=== PATIENT | male | born 1950 | race Caucasian/White ===

== ENCOUNTER 2019-04-15 16:24 | Inpatient (IN) | payer MEDICARE, OTHER ==
[2019-04-15 18:08] LABS: Bacteria/HPF None Seen HPF (None Seen); Bilirubin Negative (Negative); Blood, Urine Negative (Negative); Clarity Clear (Clear); Glucose, Urine (Dipstick) Normal (Negative); Leukocyte Negative Leu/uL (Negative); Mucous/LPF 2+ LPF (<2+); Nitrite Negative (Negative); Protein, Urine (Dipstick) 50 mg/dL (Neg-Trace); Squamous Epithelial 0-3 HPF (0-3)
[2019-04-15 18:14] LABS: Hemoglobin 11.4 g/dL (14.0-18.0); Mean Corpuscular HGB CONC 31.7 g/dL (32.0-36.0); Mean Corpuscular Hemoglobin 28.6 pg (27.0-31.0); Mean Corpuscular Volume 90.2 fL (78.0-98.0); Mean Platelet Volume 6.7 fL (7.4-10.4); Platelet Count 610 thou/uL (130-400); RBC Distribution Width 12.9 % (11.5-14.5); Red Blood Cell (RBC) Count 3.96 mill/uL (4.70-6.10); White Blood Cell (WBC) Count 23.4 thou/uL (4.8-10.8)
[2019-04-15 18:31] LABS: Band 1 % (5-11); Lymphocytes 10 % (21-51); MDiff Complete? YES; Monocytes 4 % (0-10); Neutrophil 85 % (42-75); Platelet Morphology Comment Appears Increased; Polychromasia SLIGHT = 2-3 cells (100X) (0-2/hpf)
[2019-04-15 18:35] LABS: ALT (SGPT) 8 U/L (8-55); AST (SGOT) 14 U/L (5-34); Alkaline Phosphatase 62 U/L (40-110); Anion Gap 12 mmol/L (10-20); BUN (Urea Nitrogen) 20 mg/dL (8.4-25.7); Bilirubin, Total 0.6 mg/dL (0.2-1.2); Calc. Creatinine Clearance 0 mL/min (70-130); Calcium 9.2 mg/dL (7.8-10.44); Carbon Dioxide 35 mmol/L (23-31); Chloride 92 mmol/L (98-107); Estimated GFR-MDRD Greater than 90; Globulin 3.5 g/dL (2.4-3.5); Glucose 140 mg/dL (80-115); Potassium 4.4 mmol/L (3.5-5.1); Protein, Total 6.5 g/dL (5.8-8.1); Sodium 135 mmol/L (136-145)
--- NOTE | 2019-04-15 18:44 | RAD ---
PORTABLE CHEST: History: Hypotension. History of laryngeal cancer. Comparison: None. FINDINGS: Heart size is enlarged. There are arthrosclerotic changes of the aorta. There is a left sided pleural effusion with associated parenchymal change in the left base which could represent atelectasis versu s pneumonia. The right lung is clear. Right sided Mediport catheter is present. Tracheostomy tube is in place. IMPRESSION: Opacification in the left base which appears to be related to effusion with atelectasis versus infilt rate. POS: [facility]
[2019-04-15] MEDS ORDERED: Cefepime 2 GM VIAL ONE (19:16)
[2019-04-15] MEDS ORDERED: Sodium Chloride 0.9% 1,000 ML IV SCH (22:36)
[2019-04-15] MEDS ORDERED: Senokot S 8.6-50 MG TAB PO PRN (23:35)
[2019-04-15] MEDS ORDERED: Acetaminophen 650 MG Suppository PR PRN (23:35)
[2019-04-15] MEDS ORDERED: Calcium Carbonate 500 MG ChewTAB PO PRN (23:35)
[2019-04-15] MEDS ORDERED: Acetaminophen 650 MG/20.3 ML UDCUP PER TUBE PRN (23:39)
[2019-04-15] MEDS ORDERED: Vancomycin HCl 1 GM in Premix Bag 1 BAG IVPB SCH (23:45)
--- NOTE | 2019-04-15 23:59 | HP ---
PRIMARY CARE PHYSICIAN: Eveline Oh. CHIEF CONCERN: Hypoxia with hypotension. HISTORY OF PRESENT ILLNESS: Patient is a 69-year-old male with recently diagnosed laryngeal cancer, presented to the emergency room with the above complaints. Patient currently lives at home and has home healthcare. He has a tracheostomy as well as a gastrostomy tube. He was found to have hypotension along with hypoxia, for which he was brought into the emergency room. Patient also reported increased secretion through his trach, which has become more thickened lately. He felt generally weak and fatigued. There was subjective fever as well. Patient denies any abdominal pain, nausea, vomiting, dysuria, hematuria, urgency, or altered mentation. In the emergency room, his initial vital signs showed temperature 98.9, respirations of 20, pulse rate of 97 with a blood pressure of 84/52 with O2 saturation of 96% on 4 L nasal cannula. His chest x-ray showed left basilar pneumonia. He received 750 Levaquin, 1 g vancomycin, 2 g cefepime with 2 L IV fluid and nebulizer treatment. PAST MEDICAL HISTORY: 1. Recently diagnosed laryngeal cancer. Patient had a PET scan earlier today that showed some central obstructing lesion in the left lower lung. 2. Patient also has tracheostomy and PEG tube. 3. Hypertension. 4. Chronic pain syndrome. PAST SURGICAL HISTORY: 1. Hernia surgery. 2. MediPort placement. 3. Trach. 4. G-tube placement. ALLERGIES: NO KNOWN DRUG ALLERGIES. CURRENT HOME MEDICATIONS: Patient is on fentanyl patch and Bryan. We will verify the dosages with the family. SOCIAL HISTORY: Patient is a former smoker. He currently lives at home with his daughter. He makes his own decision with the help of his family. FAMILY HISTORY: Negative for premature coronary artery disease. REVIEW OF SYSTEMS: Cannot be reliably obtained from the patient due to current clinical condition. PHYSICAL EXAMINATION: VITAL SIGNS: As discussed above. GENERAL: A 69-year-old male, in mild distress due to thickened secretion. HEENT: Head, atraumatic and normocephalic. Sclerae anicteric. No oral lesion. NECK: Supple. Tracheostomy noted. There is a neck mass noted also on the left side of the trach. LUNGS: Showed [id number] use of accessory muscle along with extensive rhonchi as well as rales at the left base. There was scattered wheezing as well. HEART: S1 and S2 present. Regular. No rubs or gallops. ABDOMEN: Soft, nontender. PEG tube noted. EXTREMITIES: No edema or calf tenderness. NEUROLOGY: Grossly nonfocal. Moves all 4 extremities. PSYCHIATRY: Alert, awake, and oriented x3. SKIN: Warm and dry. LYMPH NODES: No palpable lymph nodes in the neck. PERIPHERAL VASCULAR: Radial pulses palpable bilaterally. MUSCULOSKELETAL: No joint swelling or tenderness. LABORATORY FINDINGS: 1. CBC showed WBC 23.4 with hemoglobin 11.4, hematocrit 35.8, and platelet of 610. Chemistry showed sodium 135, potassium 4.4, chloride 92, bicarb 35, BUN 20, and creatinine 0.62. 2. LFTs in normal range with albumin 3.0. 3. Lactic acid 0.9. 4. Urinalysis showed 4 to 6 wbc, 4 to 6 rbc with hyaline casts. 5. Chest x-ray by my review as discussed above. IMPRESSION: 1. Severe sepsis secondary to healthcare-associated pneumonia, suspected gram-negative organism. 2. Suspected postobstructive pneumonia. 3. Recently diagnosed laryngeal cancer, followed by Dr. Andino. 4. Moderate protein energy malnutrition. 5. Hyponatremia. 6. Dehydration. 7. Anemia, suspected chronic. 8. Chronic pain syndrome. 9. Hypertension. PLAN: 1. Patient will be monitored on the medical floor. We will continue gentle hydration. Oncology and Pulmonary team will be consulted. We will continue vancomycin, cefepime with Levaquin. We will resume pain medications. Consult dietitian for PEG tube feeding recommendation. Nebulizer treatment. 2. Recheck labs in a.m. 3. Patient understands the above plan of care. 4. We will discuss the above plan with the family when they arrive. Job ID: [id number]
[2019-04-16] MEDS: fentaNYL 50 mcg/hour Patch TD SCH (00:25)
[2019-04-16] MEDS: D5 1/2 NS w/10 mEq KCl 1,000 ML/1,000 ML BAG IV SCH ×3 (00:33→20:31)
[2019-04-16 00:56] VITALS: BMI 25.0
[2019-04-16] MEDS: Hydrocodone-Acetamin 15 ML UDCUP PER TUBE PRN ×3 (05:19→18:18)
[2019-04-16] MEDS: Vancomycin HCl 1.25 GM in Sodium Chloride 0.9% 250 ML 250 ML IVPB SCH ×2 (05:34→18:18)
[2019-04-16 06:00] LABS: #Eosinphils 0.1 thou/uL (0.0-0.7); #Lymphocytes 2.9 thou/uL (1.20-3.40); #Monocytes 2.1 thou/uL (0.11-0.59); #Neutrophils 13.9 thou/uL (1.40-6.50); %Basophils 0.2 % (0.0-1.0); %Eosinophils 0.5 % (0.0-10.0); %Lymphocytes 15.3 % (21.0-51.0); %Monocytes 11.1 % (0.0-10.0); Hemoglobin 9.5 g/dL (14.0-18.0); Mean Corpuscular HGB CONC 30.7 g/dL (32.0-36.0); Mean Corpuscular Hemoglobin 27.8 pg (27.0-31.0); Mean Corpuscular Volume 90.5 fL (78.0-98.0); Mean Platelet Volume 6.8 fL (7.4-10.4); Platelet Count 546 thou/uL (130-400); RBC Distribution Width 12.9 % (11.5-14.5); Red Blood Cell (RBC) Count 3.42 mill/uL (4.70-6.10); White Blood Cell (WBC) Count 19.1 thou/uL (4.8-10.8)
[2019-04-16 06:23] LABS: ALT (SGPT) 8 U/L (8-55); AST (SGOT) 10 U/L (5-34); Albumin 2.5 g/dL (3.4-4.8); Alkaline Phosphatase 49 U/L (40-110); Anion Gap 7 mmol/L (10-20); BUN (Urea Nitrogen) 16 mg/dL (8.4-25.7); Bilirubin, Total 0.4 mg/dL (0.2-1.2); Calc. Creatinine Clearance 141 mL/min (70-130); Calcium 8.3 mg/dL (7.8-10.44); Carbon Dioxide 35 mmol/L (23-31); Chloride 97 mmol/L (98-107); Estimated GFR-MDRD Greater than 90; Globulin 2.9 g/dL (2.4-3.5); Glucose 101 mg/dL (80-115); Magnesium 1.9 mg/dL (1.6-2.6); Potassium 4.1 mmol/L (3.5-5.1); Protein, Total 5.4 g/dL (5.8-8.1); Sodium 135 mmol/L (136-145)
[2019-04-16] MEDS ORDERED: Cefepime 2 GM in Sodium Chloride 0.9% 100 ML IVPB SCH (08:00)
[2019-04-16] MEDS ORDERED: FLU VACC TS2019-20(65YR UP)/PF 180 MCG/0.5 ML SYRINGE IM ONE (09:00)
[2019-04-16] MEDS: Diabetic Tussin 200 MG/10 ML UDCUP PER TUBE SCH ×3 (09:18→20:33)
[2019-04-16] MEDS: Famotidine/PF 20 mg/2ml Vial SLOW IVP SCH ×2 (09:18→20:34)
[2019-04-16] MEDS: Famotidine 20 MG TAB PER TUBE SCH ×2 (09:18→20:33)
[2019-04-16] MEDS: Saccharomyces boulardii 250 MG CAP PER TUBE SCH (09:18)
--- NOTE | 2019-04-16 15:51 | PDOC.HOSPP ---
- Subjective Subjective: pt resting, he asked me to talk to his dtr over the phone and his dtr been updated. admitted for PNA. - Objective Vital Signs & Weight: Vital Signs (12 hours) Temp Pulse Resp BP Pulse Ox 04/16/19 15:00 90 20 96 04/16/19 11:01 94 20 97 04/16/19 08:00 97 04/16/19 07:39 98.3 F 79 20 108/60 97 04/16/19 07:03 82 18 92 L 04/16/19 04:16 97.5 F L 73 18 121/71 97 Weight Admit Weight 165 lb Weight 165 lb I&O: 04/15/19 04/16/19 04/17/19 06:59 06:59 06:59 Intake Total 900 Balance 900 Result Diagrams: 04/16/19 05:44 04/16/19 05:45 Hospitalist ROS - Medication Medications: Active Medications Generic Name Dose Route Start Last Admin Trade Name Freq PRN Reason Stop Dose Admin Hydrocodone Bitart/Acetaminophen 15 ml 04/15/19 23:39 04/16/19 11:20 Hydrocodone-Apap 7.5-325/15 PER TUBE 15 ml Q6H PRN Administration Severe Pain (7-10) Albuterol/Ipratropium 3 ml 04/16/19 02:30 04/16/19 15:00 Duoneb NEB 3 ml [id number] MATHEW Administration Famotidine 20 mg 04/16/19 09:00 04/16/19 09:18 Pepcid SLOW IVP Not Given Q12HR MATHEW Famotidine 20 mg 04/16/19 09:00 04/16/19 09:18 Pepcid PER TUBE 20 mg BID MATHEW Administration Fentanyl 50 mcg 04/15/19 23:59 04/16/19 00:25 Duragesic TD 50 mcg Q3D MATHEW Administration Guaifenesin 400 mg 04/16/19 09:00 04/16/19 09:18 Robitussin Sf PER TUBE 400 mg TID MATHEW Administration Potassium Chloride/Dextrose/Sod Cl 1,000 ml in 1,000 mls @ 100 mls/hr 23:45 04/16/19 12:26 D5 1/2 Ns W/10 Meq Kcl IV 1,000 mls .Q10H MATHEW Administration Vancomycin HCl 1.25 gm/ Sodium 250 mls @ 166.667 mls/hr 04/16/19 06:00 05:34 Chloride IVPB 250 mls 0600,1800 MATHEW Administration Saccharomyces Shellyi 250 mg 04/16/19 09:00 04/16/19 09:18 Florastor PER TUBE 250 mg DAILY MATHEW Administration Sodium Chloride 10 ml 04/16/19 09:00 04/16/19 09:19 Flush - Normal Saline IVF Not Given Q12HR MATHEW - Exam General Appearance: NAD, awake alert ENT: normocephalic atraumatic ENT - other findings: trach in place Neck: supple, symmetric Heart: RRR, no murmur Respiratory: CTAB, no wheezes, no tachypnea Gastrointestinal: soft, non-tender, normal bowel sounds Gastrointestinal - other findings: PEG in place Extremities: no cyanosis, no clubbing Hosp A/P - Plan old records reviewed/req HCAP sepsis 2/2 to HCAp, present on admission post obstructive PNA w.. hx of larygneal CA --vanc, vefepime and LQ - fw on the culture and vanc trough Leukocytosis -d/t above - mgmt as above prob chr meta alkalosis -- correct the lytes, as needed. Hyponatremia Anemia of chr disease/chr inflammation -stable Prot calorie malntr - moderate - nutrition consult -on TF Sarah Joshi at [phone] updated.
--- NOTE | 2019-04-16 16:03 | CON ---
DATE OF CONSULTATION: 04/16/2019 SERVICE: Pulmonary Medicine. REASON FOR CONSULTATION: Pneumonia, mediastinal lymphadenopathy, possible pulmonary mass. HISTORY OF PRESENT ILLNESS: The patient is a 69-year-old white male with past medical history significant for head and neck cancer. He is brand new to our healthcare system. Ultimately, he was going to be seeing Dr. Andino in Oncology in a couple of days. Prior to that encounter, he is supposed to have a PET scan. He started having increasing shortness of breath and hypoxemia. He was brought to the emergency department. He was given some antibiotics, nebulized medication. Overnight, he has stabilized to some degree. He indicates his breathing is much more comfortable. He denies any current fevers, chills, nausea, vomiting, or diarrhea. Otherwise, he is in his usual state of health and has no specific complaints. I was contacted because of possible pneumonia with mediastinal lymphadenopathy, abnormal PET scan, and pleural effusion. Ultimately, additional tissue samples are going to need to be obtained. 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 He underwent an elective tracheostomy because of respiratory compromise. PAST MEDICAL HISTORY: 1. Laryngeal cancer. 2. Hypertension. 3. Chronic pain syndrome. PAST SURGICAL HISTORY: 1. Tracheostomy and PEG tube placement. 2. Herniorrhaphy. 3. MediPort placement. ALLERGIES: NO KNOWN DRUG ALLERGIES. MEDICATIONS: List of his inpatient medications were reviewed. No specific updates were made at this time. FAMILY HISTORY: Noncontributory. SOCIAL HISTORY: He has a greater than [id number] history of smoking, but quit recently. He denies any alcohol or illicit drugs. He asks us to discuss his medical care with Anali, his daughter. REVIEW OF SYSTEMS: General, head, ears, eyes, nose, throat, cardiovascular, respiratory, GI, , musculoskeletal, neurologic, and skin is negative except as mentioned in the HPI. PHYSICAL EXAMINATION: VITAL SIGNS: Afebrile; pulse 90; blood pressure 108/60; respirations 20; and saturation 97%, currently on T-collar. HEENT: Normocephalic and atraumatic. Sclerae are white. Conjunctivae are pink. Oral mucosa is moist without lesions. LUNGS: Decent air entry. No prolonged expiratory phase or wheezing is appreciated. HEART: Normal rate, regular. ABDOMEN: Soft, nontender, and nondistended. Bowel sounds are positive. MUSCULOSKELETAL: No cyanosis or clubbing. No pitting in bilateral lower extremities. NEUROLOGIC: Grossly nonfocal. LABORATORY DATA: WBC 9.1, hemoglobin 9.5, and platelets 546,000. Neutrophil count is 73%. On presentation, his bands were low. Basic metabolic profile is essentially unremarkable as his liver function studies. Lactate is negative. Urinalysis is unremarkable. Blood cultures x2 are negative. IMAGING DATA: Chest x-ray demonstrates chin-opacification of much of the left lung. There is a large pleural effusion on the left. There is possibly a pneumonia present. Right lung appears to be clear. There is evidence of volume expansion with flattening of the diaphragm on the right. Tracheostomy and port catheter in good position. His PET scan demonstrates hypermetabolic mediastinal lymph node, pulmonary mass , and possible postobstructive pneumonia. There is also large pleural effusion present. ASSESSMENT: 1. Acute hypoxic respiratory failure. 2. Community-acquired pneumonia, likely postobstructive. 3. Pleural effusion. 4. Pulmonary nodule versus mass. 5. Mediastinal lymphadenopathy, PET positive in the setting of pneumonia. 6. Head and neck cancer, status post tracheostomy and percutaneous endoscopic gastrostomy tube. DISCUSSION AND PLAN: I will proceed with a thoracentesis. If this demonstrates abnormal cytology, we will likely be done. If on the other hand, it does not, will likely need to enlarge his tracheostomy, so that we can successfully get our endoscopic bronchial ultrasound, and bronchoscope into the patient so we can survey his airway. For the time being, blood thinning medications will be interrupted. Pulmonary/Critical Care will follow closely. 70 minutes have been devoted to this patient in various activities. I personally reviewed all imaging studies and laboratory data noted within this document. For fifty percent of this time, I was interacting with the patient at the bedside or coordinating care with the care team. For the remainder of the time I was immediately available to the patient in the hospital unit. Job ID: [id number] [facility]
[2019-04-16] MEDS: Piperacillin/Tazobactam 3.375 GM in Sodium Chloride 0.9% 100 ML IVPB SCH ×2 (16:08→22:34)
[2019-04-16] MEDS ORDERED: Enoxaparin Sodium 40 MG/0.4 ML SYRINGE SC SCH (21:00)
[2019-04-16] MEDS: Acetaminophen 325 MG TAB PER TUBE PRN (22:08)
--- NOTE | 2019-04-17 00:30 | CON ---
DATE OF CONSULTATION: REASON FOR CONSULTATION: Laryngeal cancer and lung mass. HISTORY OF PRESENT ILLNESS: A 69-year-old male with extensive laryngeal cancer diagnosed in January 2018, status post prolonged hospitalization for urgent tracheostomy, now status post PEG tube as well, presenting to the hospital with hypoxia and hypotension. The patient was found to have O2 sats in the 70s and home blood pressure 80 to 90 over 50 to 60 with Home Health and sent to the ER. He has had increased secretions through his trach and has been very weak and fatigued. He denies any objective fevers at home. The patient had a chest x-ray in the ER that showed a left basilar pneumonia and pleural effusion and was started on broad-spectrum antibiotics. His blood pressure improved with IV fluids and he was admitted to the general medical floor. REVIEW OF SYSTEMS: Ten-point review of systems is negative except as per HPI. PAST MEDICAL HISTORY: Laryngeal cancer, hypertension, tobacco and alcohol abuse. PAST SURGICAL HISTORY: Hernia, MediPort placement, tracheostomy and G-tube placement. ALLERGIES: NO KNOWN DRUG ALLERGIES. CURRENT MEDICATIONS: Reviewed. PHYSICAL EXAMINATION: VITAL SIGNS: Temperature 98.3, pulse 79, respirations 20, saturating 97% on 5L by trach collar, blood pressure 108/60. GENERAL APPEARANCE: The patient is propped up in bed, in no acute distress. HEENT: Normocephalic and atraumatic. NECK: Supple. Tracheostomy is noted and hooked up to oxygen with a large left-sided neck mass. LUNGS: Mild accessory muscle use with diffuse wheezing. CARDIAC: S1 and S2. Regular rhythm and rate. ABDOMEN: Soft, nontender. PEG tube is present. EXTREMITIES: No edema. NEUROLOGIC: Cranial nerves 2 through 12 are grossly intact. PSYCHIATRIC: Awake, alert, and oriented x3. LABORATORY DATA: White blood cells 23.4 on admission, currently 19.1, hemoglobin 11.4, currently 9.5, platelets 610, currently 546. Sodium 135, potassium 4.1, carbon dioxide 35, BUN 16, creatinine 0.53, albumin 2.5. IMAGING DATA: Chest x-ray shows pleural effusion and left basilar pneumonia. PET scan dated April 15, 2019 shows a markedly hypermetabolic laryngeal mass with large hypermetabolic necrotic left neck adenopathy with a hypermetabolic right lower jugular lymph node as well as the left lower lung abnormality with hypermetabolic activity and neoplasm is favored over a postobstructive infection. ASSESSMENT AND PLAN: A 69-year-old male with laryngeal cancer, status post tracheostomy and PEG tube placement, presenting to the hospital with hypoxia and hypotension. The patient found to have pneumonia and is currently on broad-spectrum antibiotics. CAT scan showed a likely large left lower lobe nodule versus mass versus pneumonia based on his history, more likely neoplasm, which may be causing postobstructive pneumonia. If he has a pleural effusion, which is positive for cancer, he will not need any further biopsies. We will plan on doing this soon and his blood thinners will be held. If this is negative, then Dr. Archer may be able to have his tracheostomy widened so he can perform an endobronchial ultrasound and examine the airways for potential tissue diagnosis. If he does end up having metastatic cancer, then we would likely perform chemotherapy as an outpatient and also need tissue to diagnose if the patient had a second primary lung cancer and not metastatic from his laryngeal cancer. We will follow along with you. Job ID: [id number]
[2019-04-17] MEDS: Hydrocodone-Acetamin 15 ML UDCUP PER TUBE PRN ×5 (03:05→17:59)
[2019-04-17] MEDS: D5 1/2 NS w/10 mEq KCl 1,000 ML/1,000 ML BAG IV SCH ×3 (03:27→21:23)
[2019-04-17] MEDS: Piperacillin/Tazobactam 3.375 GM in Sodium Chloride 0.9% 100 ML IVPB SCH ×4 (03:27→22:41)
[2019-04-17] MEDS: guaiFENesin ER 600 MG TAB PO PRN ×2 (04:38→18:00)
[2019-04-17 05:03] LABS: #Basophils 0.1 thou/uL (0.0-0.2); #Eosinphils 0.1 thou/uL (0.0-0.7); #Lymphocytes 2.5 thou/uL (1.20-3.40); #Neutrophils 13.7 thou/uL (1.40-6.50); %Basophils 0.6 % (0.0-1.0); %Eosinophils 0.4 % (0.0-10.0); %Lymphocytes 13.5 % (21.0-51.0); %Monocytes 10.7 % (0.0-10.0); %Neutrophils 74.8 % (42.0-75.0); Hemoglobin 9.4 g/dL (14.0-18.0); Mean Corpuscular HGB CONC 31.1 g/dL (32.0-36.0); Mean Corpuscular Hemoglobin 28.1 pg (27.0-31.0); Mean Corpuscular Volume 90.4 fL (78.0-98.0); Mean Platelet Volume 6.8 fL (7.4-10.4); Platelet Count 533 thou/uL (130-400); RBC Distribution Width 12.9 % (11.5-14.5); Red Blood Cell (RBC) Count 3.34 mill/uL (4.70-6.10); White Blood Cell (WBC) Count 18.3 thou/uL (4.8-10.8)
[2019-04-17 05:25] LABS: Vancomycin, Trough 12.6 ug/mL
[2019-04-17 05:26] LABS: Vancomycin, Trough 12.2 ug/mL
[2019-04-17 05:30] LABS: ALT (SGPT) Less than 7 U/L (8-55); AST (SGOT) 10 U/L (5-34); Albumin 2.4 g/dL (3.4-4.8); Alkaline Phosphatase 47 U/L (40-110); Anion Gap 9 mmol/L (10-20); BUN (Urea Nitrogen) 14 mg/dL (8.4-25.7); Bilirubin, Total 0.5 mg/dL (0.2-1.2); Calc. Creatinine Clearance 131 mL/min (70-130); Calcium 8.1 mg/dL (7.8-10.44); Carbon Dioxide 31 mmol/L (23-31); Chloride 97 mmol/L (98-107); Estimated GFR-MDRD Greater than 90; Globulin 2.9 g/dL (2.4-3.5); Glucose 120 mg/dL (80-115); Potassium 3.7 mmol/L (3.5-5.1); Protein, Total 5.3 g/dL (5.8-8.1); Sodium 133 mmol/L (136-145)
[2019-04-17] MEDS: Vancomycin HCl 1 GM in Premix Bag 1 BAG IVPB SCH ×3 (06:07→21:22)
[2019-04-17 08:31] LABS: INR-International Normal Ratio 1.1; Prothrombin Time 14.7 SEC (12.0-14.7)
[2019-04-17 08:32] LABS: PTT 34.6 SEC (22.9-36.1)
[2019-04-17] MEDS: Acetaminophen 325 MG TAB PER TUBE PRN ×2 (08:47→17:04)
[2019-04-17] MEDS: Saccharomyces boulardii 250 MG CAP PER TUBE SCH (08:47)
[2019-04-17] MEDS: Diabetic Tussin 200 MG/10 ML UDCUP PER TUBE SCH ×3 (08:47→21:20)
[2019-04-17] MEDS: Famotidine 20 MG TAB PER TUBE SCH ×2 (08:48→21:20)
[2019-04-17] MEDS: Famotidine/PF 20 mg/2ml Vial SLOW IVP SCH ×2 (08:48→21:12)
--- NOTE | 2019-04-17 10:50 | PDOC.MOPN ---
Interval History: complains of SOB - Vital Signs Vital Signs: Vital Signs (12 hours) Temp Pulse Resp BP BP Pulse Ox 04/17/19 08:00 98.5 F 73 20 124/82 93 L 04/17/19 07:27 74 14 98 04/17/19 04:00 98.3 F 72 20 109/77 93 L 04/17/19 02:27 74 16 95 04/16/19 23:48 98.8 F 75 20 105/59 L 94 L Weight Admit Weight 165 lb Weight 165 lb - Physical Exam General: Alert, Oriented x3, No acute distress HEENT: Other (trach) Extremities: No clubbing, No cyanosis, No edema, Normal pulses, No tenderness/ swelling Skin: No rashes, No breakdown, No significant lesion - Labs Result Diagrams: 04/17/19 04:52 04/17/19 04:52 Lab results: Laboratory Results - last 24 hr 04/17/19 07:43: PT 14.7, INR 1.1, APTT 34.6 04/17/19 04:52: Vancomycin Trough 12.2 04/17/19 04:52: Vancomycin Trough 12.6 04/17/19 04:52: WBC 18.3 H, RBC 3.34 L, Hgb 9.4 L, Hct 30.2 L, MCV 90.4, MCH 28.1, MCHC 31.1 L, RDW 12.9, Plt Count 533 H, MPV 6.8 L, Neutrophils % 74.8, Lymphocytes % 13.5 L, Monocytes % 10.7 H, Eosinophils % 0.4, Basophils % 0.6, Neutrophils # 13.7 H, Lymphocytes # 2.5, Monocytes # 2.0 H, Eosinophils # 0.1, Basophils # 0.1 04/17/19 04:52: Sodium 133 L, Potassium 3.7, Chloride 97 L, Carbon Dioxide 31, Anion Gap 9 L, BUN 14, Creatinine 0.57 L, Estimated GFR (MDRD) Greater than 90 , Glucose 120 H, Calcium 8.1, Total Bilirubin 0.5, AST 10, ALT Less than 7 L, Alkaline Phosphatase 47, Serum Total Protein 5.3 L, Albumin 2.4 L, Globulin 2.9 , Albumin/Globulin Ratio 0.8 L Status: lab reviewed by me A/P - Problem (1) Head and neck cancer Current Visit: Yes Code(s): C76.0 - MALIGNANT NEOPLASM OF HEAD, FACE AND NECK Status: Acute (2) Pleural effusion Current Visit: Yes Code(s): J90 - PLEURAL EFFUSION, NOT ELSEWHERE CLASSIFIED Status: Acute - Plan Plan: thoracentesis today further recs based on cytology
[2019-04-17] MEDS ORDERED: Morphine 4 MG/ML VIAL ONE (12:12)
--- NOTE | 2019-04-17 12:23 | PDOC.HOSPP ---
- Subjective Subjective: pain on the neck, plan for thoracentesis today. - Objective Vital Signs & Weight: Vital Signs (12 hours) Temp Pulse Resp BP BP BP Pulse Ox 04/17/19 11:47 80 18 98 04/17/19 11:30 113/89 04/17/19 08:00 98.5 F 73 20 124/82 93 L 04/17/19 07:27 74 14 98 04/17/19 04:00 98.3 F 72 20 109/77 93 L 04/17/19 02:27 74 16 95 Weight Admit Weight 165 lb Weight 165 lb I&O: 04/16/19 04/17/19 04/18/19 06:59 06:59 06:59 Intake Total 900 1250 Balance 900 1250 Result Diagrams: 04/17/19 04:52 04/17/19 04:52 Hospitalist ROS - Medication Medications: Active Medications Generic Name Dose Route Start Last Admin Trade Name Freq PRN Reason Stop Dose Admin Acetaminophen 650 mg 04/15/19 23:35 04/17/19 08:47 Tylenol PER TUBE 650 mg Q4H PRN Administration Headache/Fever/Mild Pain (1-3) Albuterol/Ipratropium 3 ml 04/16/19 02:30 04/17/19 11:47 Duoneb NEB 3 ml [id number] MATHEW Administration Famotidine 20 mg 04/16/19 09:00 04/17/19 08:48 Pepcid SLOW IVP Not Given Q12HR MATHEW Famotidine 20 mg 04/16/19 09:00 04/17/19 08:48 Pepcid PER TUBE 20 mg BID MATHEW Administration Fentanyl 50 mcg 04/15/19 23:59 04/16/19 00:25 Duragesic TD 50 mcg Q3D MATHEW Administration Guaifenesin 400 mg 04/16/19 09:00 04/17/19 08:47 Robitussin Sf PER TUBE 400 mg TID MATHEW Administration Guaifenesin 600 mg 04/15/19 23:33 04/17/19 04:38 Mucinex PO 600 mg Q12HR PRN Administration Cough Potassium Chloride/Dextrose/Sod Cl 1,000 ml in 1,000 mls @ 100 mls/hr 23:45 04/17/19 03:27 D5 1/2 Ns W/10 Meq Kcl IV 1,000 mls .Q10H MATHEW Administration Piperacillin Sod/Tazobactam 100 mls @ 200 mls/hr 04/16/19 16:00 04/17/19 08: 45 Sod 3.375 gm/ Sodium Chloride IVPB 100 mls 0400,1000,1600,2200 MATHEW Administration Vancomycin HCl 1 gm/ Device 200 mls @ 200 mls/hr 04/17/19 06:00 04/17/19 06: 07 IVPB 200 mls Q8HR MATHEW Administration Saccharomyces Boulardii 250 mg 04/16/19 09:00 04/17/19 08:47 Florastor PER TUBE 250 mg DAILY MATHEW Administration Sodium Chloride 10 ml 04/16/19 09:00 04/17/19 08:48 Flush - Normal Saline IVF Not Given Q12HR MATHEW - Exam General Appearance: NAD, awake alert Eye: PERRL Neck - other findings: sig size nodule on the left sidede neck Heart: RRR, no murmur Respiratory: CTAB Gastrointestinal: soft, non-distended, normal bowel sounds Extremities: no cyanosis Skin: normal turgor Neurological: no focal deficits Musculoskeletal: normal tone Hosp A/P - Plan HCAP sepsis 2/2 to HCAp, present on admission post obstructive PNA w.. hx of larygneal CA --vanc, vefepime and LQ - fw on the culture --no growth Leukocytosis -d/t above - mgmt as above laryngeal cancer lung mass, Left nodule Pleural Fluid/effusion --plan for thoracentesis - prob chr meta alkalosis -- correct the lytes, as needed. Hyponatremia -mild Anemia of chr disease/chr inflammation -stable Pain -pt on hydrocodone q4hr and senna Prot calorie malntr - moderate - nutrition consult -on TF Dtr, Sarah at [phone] updated.
[2019-04-17] MEDS ORDERED: Morphine 2 MG/ML SYRINGE SLOW IVP SCH (12:30)
[2019-04-17] MEDS ORDERED: Sodium Bicarbonate 2.5 MEQ/5 ML VIAL ONE (15:05)
--- NOTE | 2019-04-17 16:16 | RAD ---
INSPRIATORY AND EXPIRATORY AP VIEWS OF THE CHEST: 04/17/19 INDICATION: Status post thoracentesis. COMPARISON: Chest radiograph dated 04/15/19. FINDINGS: The moderate left sided pleural effusion is not appreciably changed in size. There is a small right p leural effusion. There is scattered chronic lung changes. There is a tracheostomy tube and right ches t wall port in place. There is persistent atelectasis of the left lower lobe. Osseous structures are unchanged. IMPRESSION: 1. Status post left sided thoracentesis without evidence of pneumothorax. 2. Small right and moderate left pleural effusion. POS: [facility]
--- NOTE | 2019-04-17 16:23 | ULT ---
Ultrasound-guided left-sided diagnostic thoracentesis INDICATION: Left-sided pleural effusion with an obstructing lesion in the left lower lobe bronchus an d postobstructive atelectasis of the left lower lobe. TECHNIQUE: Informed consent was obtained. Preprocedural centimeter large left pleural effusion and a small right pleural effusion. Site overlying the posterior aspect of the lower left hemithorax was prepped and draped in the usual sterile fashion. Buffered 1% lidocaine was administered overlying sub cutaneous tissues. Under ultrasound guidance, a thoracentesis catheter was guided down into the large collection of the left chest. 60 cc of normal appearing pleural fluid was removed from the left hemithorax. Patient tolerated the procedure without difficulty. Postprocedure chest radiograph demonstrated no significant left-sided pneumothorax. Moderate left and small right pleural effusions remain. IMPRESSION: Successful ultrasound-guided diagnostic left-sided thoracentesis with removal of 60 cc of normal appearing pleural fluid. The fluid sample was sent to pathology for further evaluation.
[2019-04-17 16:57] LABS: Fluid, Triglycerides 21 mg/dL (Not Available); Pleural Fluid, Amylase Less than 30 U/L (Not Available); Pleural Fluid, Glucose 121 mg/dL; Pleural Fluid, LDH 103 U/L (Not Available); Pleural Fluid, Protein 2.8 g/dL
[2019-04-17 18:30] LABS: RBC Count-Automated (BF) 1312 /cumm; WBC/Nucleated-Auto (BF) 2166 uL
[2019-04-17 18:33] LABS: BF Color Yellow; Body Fluid Source Thoracentesis Fluid; Clarity Cloudy/Turbid (Clear); Tube # EDTA
[2019-04-17 18:36] LABS: BF Segmented Neutrophils 42 %; Cell Count Non Hematic 16 %; Lymphocytes 42 %
[2019-04-18] MEDS: Hydrocodone-Acetamin 15 ML UDCUP PER TUBE PRN ×6 (00:16→21:23)
[2019-04-18] MEDS: Piperacillin/Tazobactam 3.375 GM in Sodium Chloride 0.9% 100 ML IVPB SCH ×4 (04:15→20:21)
[2019-04-18 05:42] LABS: #Eosinphils 0.1 thou/uL (0.0-0.7); #Lymphocytes 3.3 thou/uL (1.20-3.40); #Monocytes 2.3 thou/uL (0.11-0.59); #Neutrophils 13.7 thou/uL (1.40-6.50); %Basophils 0.3 % (0.0-1.0); %Eosinophils 0.4 % (0.0-10.0); %Lymphocytes 16.8 % (21.0-51.0); %Monocytes 11.8 % (0.0-10.0); %Neutrophils 70.7 % (42.0-75.0); Mean Corpuscular HGB CONC 31.3 g/dL (32.0-36.0); Mean Corpuscular Hemoglobin 28.7 pg (27.0-31.0); Mean Corpuscular Volume 91.6 fL (78.0-98.0); Mean Platelet Volume 6.8 fL (7.4-10.4); Platelet Count 576 thou/uL (130-400); RBC Distribution Width 13.1 % (11.5-14.5); White Blood Cell (WBC) Count 19.4 thou/uL (4.8-10.8)
[2019-04-18 06:05] LABS: Vancomycin, Trough 18.7 ug/mL
[2019-04-18] MEDS: Vancomycin HCl 1 GM in Premix Bag 1 BAG IVPB SCH ×3 (06:13→20:20)
[2019-04-18] MEDS: Famotidine 20 MG TAB PER TUBE SCH ×2 (07:57→20:23)
[2019-04-18] MEDS: Saccharomyces boulardii 250 MG CAP PER TUBE SCH (07:58)
[2019-04-18] MEDS: Diabetic Tussin 200 MG/10 ML UDCUP PER TUBE SCH ×3 (07:58→20:23)
[2019-04-18] MEDS: Famotidine/PF 20 mg/2ml Vial SLOW IVP SCH ×2 (08:10→20:59)
[2019-04-18] MEDS ORDERED: Morphine 2 MG/ML SYRINGE SLOW IVP SCH (12:15)
[2019-04-18] MEDS: D5 1/2 NS w/10 mEq KCl 1,000 ML/1,000 ML BAG IV SCH (13:05)
--- NOTE | 2019-04-18 13:06 | PDOC.HOSPP ---
- Subjective Subjective: pt quite apprehensive, pain control, able to have his pO intake, had thoracentesis. - Objective Vital Signs & Weight: Vital Signs (12 hours) Temp Pulse Resp BP BP Pulse Ox 04/18/19 11:24 91 16 92 L 04/18/19 08:15 98.9 F 92 20 135/66 91 L 04/18/19 08:12 94 18 96 04/18/19 08:00 96 04/18/19 03:43 98.9 F 71 20 115/68 92 L 04/18/19 02:01 78 16 95 Weight Admit Weight 165 lb Weight 165 lb I&O: 04/17/19 04/18/19 04/19/19 06:59 06:59 06:59 Intake Total 1250 1920 Balance 1250 1920 Result Diagrams: 04/18/19 05:32 04/17/19 04:52 Hospitalist ROS - Medication Medications: Active Medications Generic Name Dose Route Start Last Admin Trade Name Freq PRN Reason Stop Dose Admin Acetaminophen 650 mg 04/15/19 23:35 04/16/19 22:08 Tylenol PER TUBE 650 mg Q4H PRN Administration Headache/Fever/Mild Pain (1-3) Hydrocodone Bitart/Acetaminophen 15 ml 04/17/19 11:44 04/18/19 08:00 Hydrocodone-Apap 7.5-325/15 PER TUBE 15 ml Q4H PRN Administration Severe Pain (7-10) Albuterol/Ipratropium 3 ml 04/16/19 02:30 04/18/19 11:24 Duoneb NEB 3 ml [id number] MATHEW Administration Famotidine 20 mg 04/16/19 09:00 04/18/19 08:10 Pepcid SLOW IVP Not Given Q12HR MATHEW Famotidine 20 mg 04/16/19 09:00 04/18/19 07:57 Pepcid PER TUBE 20 mg BID MATHEW Administration Fentanyl 50 mcg 04/15/19 23:59 04/16/19 00:25 Duragesic TD 50 mcg Q3D MATHEW Administration Guaifenesin 400 mg 04/16/19 09:00 04/18/19 07:58 Robitussin Sf PER TUBE 400 mg TID MATHEW Administration Guaifenesin 600 mg 04/15/19 23:33 04/17/19 18:00 Mucinex PO 600 mg Q12HR PRN Administration Cough Potassium Chloride/Dextrose/Sod Cl 1,000 ml in 1,000 mls @ 100 mls/hr 23:45 04/17/19 21:23 D5 1/2 Ns W/10 Meq Kcl IV 1,000 mls .Q10H MATHEW Administration Piperacillin Sod/Tazobactam 100 mls @ 200 mls/hr 04/16/19 16:00 04/18/19 10: 32 Sod 3.375 gm/ Sodium Chloride IVPB 100 mls 0400,1000,1600,2200 MATHEW Administration Vancomycin HCl 1 gm/ Device 200 mls @ 200 mls/hr 04/17/19 06:00 04/18/19 06: 13 IVPB 200 mls Q8HR MATHEW Administration Morphine Sulfate 2 mg 04/18/19 12:15 04/18/19 12:20 Morphine SLOW IVP 04/18/19 14:00 2 mg NOW MATHEW Administration Saccharomyces Boulardii 250 mg 04/16/19 09:00 04/18/19 07:58 Florastor PER TUBE 250 mg DAILY MATHEW Administration Sodium Chloride 10 ml 04/16/19 09:00 04/18/19 08:10 Flush - Normal Saline IVF Not Given Q12HR MATHEW - Exam General Appearance: NAD, awake alert Eye: anicteric sclera ENT: normocephalic atraumatic Neck: symmetric Neck - other findings: neck mass Heart: RRR Respiratory: CTAB Gastrointestinal: soft, normal bowel sounds Extremities: no cyanosis Hosp A/P - Plan HCAP sepsis 2/2 to HCAp, present on admission post obstructive PNA w.. hx of larygneal CA --vanc, zosyn and LQ - fw on the culture --no growth so far Leukocytosis -d/t above - mgmt as above -once fluid study reviewed, and wbcs trending down, then we can de-escalate the abx. laryngeal cancer lung mass, Left nodule Pleural Fluid/effusion --plan for thoracentesis - -fluid study pending. prob chr meta alkalosis -- correct the lytes, as needed. Hyponatremia -mild Anemia of chr disease/chr inflammation -stable Pain -pt on hydrocodone q4hr and senna -morphine for breakthrough pain Prot calorie malntr - moderate - nutrition consult -on TF Dtr, Sarah at [phone] updated.
--- NOTE | 2019-04-18 16:57 | PRG ---
DATE OF SERVICE: 04/18/2019 SERVICE: Pulmonary Medicine. INTERVAL HISTORY: The patient is doing okay from respiratory standpoint. His work of breathing is increasing ever so slightly. Denies any current fevers, chills, nausea, or vomiting. We are waiting on the pathology to return. Otherwise, there has been no interval change to his condition. PHYSICAL EXAMINATION: VITAL SIGNS: Afebrile, pulse 67, blood pressure 114/68, respirations 18, and saturation 94% on room air. GENERAL: The patient is awake and alert, in no apparent distress. LUNGS: Decent air entry. Dependent crackles are present. HEART: Normal rate and regular. ABDOMEN: Soft, nontender, and nondistended. Bowel sounds are positive. MUSCULOSKELETAL: No cyanosis or clubbing. There is trace pitting in the bilateral lower extremities. NEUROLOGIC: Grossly nonfocal. LABORATORY DATA: WBC 19.4, hemoglobin 3.5, platelets 576,000. Sodium 135. Basic metabolic profile is otherwise unremarkable. Liver function studies are negative. Urinalysis is unremarkable. Pleural fluid has an LDH of 103, glucose 121, amylase less than 30, total protein 2.8, triglycerides 21. Cell type is predominantly neutrophils and lymphocytes. Cultures include blood cultures x2 are negative, and body fluid cultures negative to date. Pathology is currently pending. IMAGING: Chest x-ray demonstrates small decrease in the left-sided pleural effusion. There is a small right-sided pleural effusion. Tracheostomy and port catheter are in good position. ASSESSMENT: 1. Acute hypoxic respiratory failure. 2. Community-acquired pneumonia, postobstructive. 3. Pleural effusion, not otherwise specified. 4. Pulmonary nodule versus mass. 5. Mediastinal lymphadenopathy, PET positive in the setting of pneumonia. 6. Head and neck cancer, status post tracheostomy and percutaneous endoscopic gastrostomy tube placement. DISCUSSION AND PLAN: I will discontinue the patient's IV fluids and give him a couple of doses of Lasix. First now and second tomorrow morning. We are awaiting the results of the pathology. If these are negative, we will proceed with dilating his tracheostomy, and bronchoscopy. Pulmonary/Critical Care will follow. Job ID: [id number]
[2019-04-18] MEDS ORDERED: Furosemide 40 MG/4 ML VIAL SLOW IVP SCH (17:00)
[2019-04-18] MEDS: fentaNYL 50 mcg/hour Patch TD SCH (23:54)
[2019-04-19] MEDS: Hydrocodone-Acetamin 15 ML UDCUP PER TUBE PRN ×6 (01:24→21:51)
[2019-04-19 05:15] LABS: #Basophils 0.1 thou/uL (0.0-0.2); #Eosinphils 0.1 thou/uL (0.0-0.7); #Lymphocytes 3.6 thou/uL (1.20-3.40); #Neutrophils 13.4 thou/uL (1.40-6.50); %Basophils 0.6 % (0.0-1.0); %Eosinophils 0.6 % (0.0-10.0); %Lymphocytes 18.5 % (21.0-51.0); %Monocytes 10.6 % (0.0-10.0); %Neutrophils 69.7 % (42.0-75.0); Hemoglobin 10.6 g/dL (14.0-18.0); Mean Corpuscular HGB CONC 31.7 g/dL (32.0-36.0); Mean Corpuscular Hemoglobin 28.5 pg (27.0-31.0); Mean Corpuscular Volume 90.1 fL (78.0-98.0); Mean Platelet Volume 6.9 fL (7.4-10.4); Platelet Count 601 thou/uL (130-400); Red Blood Cell (RBC) Count 3.71 mill/uL (4.70-6.10); White Blood Cell (WBC) Count 19.2 thou/uL (4.8-10.8)
[2019-04-19 05:38] LABS: Vancomycin, Trough 29.6 ug/mL
[2019-04-19] MEDS: Piperacillin/Tazobactam 3.375 GM in Sodium Chloride 0.9% 100 ML IVPB SCH ×4 (05:38→22:30)
[2019-04-19] MEDS: Vancomycin HCl 1 GM in Premix Bag 1 BAG IVPB SCH (06:10)
[2019-04-19] MEDS ORDERED: hydrALAZINE 20 MG/ML VIAL SLOW IVP PRN (09:07)
[2019-04-19] MEDS ORDERED: Ondansetron PF 4 MG/2 ML Vial IVP PRN (09:07)
[2019-04-19] MEDS ORDERED: Loperamide HCl 2 MG CAP PER TUBE PRN (09:07)
[2019-04-19] MEDS ORDERED: Acetaminophen 500 MG TAB PER TUBE PRN (09:07)
[2019-04-19] MEDS ORDERED: Metoclopramide HCl 10 MG/2 ML VIAL IVP PRN (09:07)
[2019-04-19] MEDS ORDERED: Sodium Chloride 0.65% Nasal 44 ML BOT EA NARE PRN (09:07)
[2019-04-19] MEDS ORDERED: Cepastat Lozenges 1 LOZ PO PRN (09:07)
[2019-04-19] MEDS ORDERED: Bisacodyl 10 MG SUPP PR PRN (09:07)
[2019-04-19] MEDS ORDERED: Artificial Tears 18 DROP/0.9 ML EA EYE PRN (09:07)
[2019-04-19] MEDS ORDERED: Senokot S 8.6-50 MG TAB PER TUBE PRN (09:08)
[2019-04-19] MEDS ORDERED: Artificial Tear Sol 15 ML BOT EA EYE PRN (09:16)
[2019-04-19] MEDS: Famotidine/PF 20 mg/2ml Vial SLOW IVP SCH ×2 (09:30→21:51)
[2019-04-19] MEDS: Diabetic Tussin 200 MG/10 ML UDCUP PER TUBE SCH ×3 (09:30→21:49)
[2019-04-19] MEDS: Famotidine 20 MG TAB PER TUBE SCH ×2 (09:30→21:50)
[2019-04-19] MEDS: Saccharomyces boulardii 250 MG CAP PER TUBE SCH (09:31)
[2019-04-19 09:51] LABS: Anion Gap 12 mmol/L (10-20); BUN (Urea Nitrogen) 10 mg/dL (8.4-25.7); Calc. Creatinine Clearance 119 mL/min (70-130); Calcium 8.7 mg/dL (7.8-10.44); Carbon Dioxide 30 mmol/L (23-31); Chloride 98 mmol/L (98-107); Estimated GFR-MDRD Greater than 90; Glucose 124 mg/dL (80-115); Potassium 3.9 mmol/L (3.5-5.1); Sodium 136 mmol/L (136-145)
[2019-04-19] MEDS: Furosemide 40 MG/4 ML VIAL SLOW IVP SCH (10:03)
--- NOTE | 2019-04-19 13:15 | PDOC.HOSPP ---
- Subjective Encounter Date: 04/19/19 Encounter Time: 10:00 Subjective: Patient seen and examined. No new complaints. No overnight events - Objective Vital Signs & Weight: Vital Signs (12 hours) Temp Pulse Resp BP Pulse Ox 04/19/19 10:47 80 16 04/19/19 08:05 95 04/19/19 08:03 81 16 95 04/19/19 08:00 98.6 F 77 18 117/69 94 L 04/19/19 04:00 98.6 F 81 18 107/62 95 Weight Admit Weight 165 lb Weight 165 lb I&O: 04/18/19 04/19/19 04/20/19 06:59 06:59 06:59 Intake Total 3000 360 Balance 3000 360 Result Diagrams: 04/19/19 05:03 04/19/19 09:19 Radiology Reviewed by me: Yes Hospitalist ROS - Review of Systems ENT: denies: ear pain, ear discharge, nose pain, nose discharge, nose congestion , mouth pain, mouth swelling, throat pain, throat swelling, other Respiratory: denies: cough, dry, shortness of breath, hemoptysis, SOB with excertion, pleuritic pain, sputum, wheezing, other Cardiovascular: denies: chest pain, palpitations, orthopnea, paroxysmal noc. dyspnea, edema, light headedness, other Gastrointestinal: denies: nausea, vomiting, abdominal pain, diarrhea, constipation, melena, hematochezia, other Genitourinary: denies: dysuria, frequency, incontinence, hematuria, retention, other Musculoskeletal: denies: neck pain, shoulder pain, arm pain, back pain, hand pain, leg pain, foot pain, other - Medication Medications: Active Medications Generic Name Dose Route Start Last Admin Trade Name Freq PRN Reason Stop Dose Admin Hydrocodone Bitart/Acetaminophen 15 ml 04/17/19 11:44 04/19/19 09:29 Hydrocodone-Apap 7.5-325/15 PER TUBE 15 ml Q4H PRN Administration Severe Pain (7-10) Albuterol/Ipratropium 3 ml 04/16/19 02:30 04/19/19 10:47 Duoneb NEB 3 ml [id number] MATHEW Administration Famotidine 20 mg 04/16/19 09:00 04/19/19 09:30 Pepcid SLOW IVP Not Given Q12HR MATHEW Famotidine 20 mg 04/16/19 09:00 04/19/19 09:30 Pepcid PER TUBE 20 mg BID MATHEW Administration Fentanyl 50 mcg 04/15/19 23:59 04/18/19 23:54 Duragesic TD 50 mcg Q3D MATHEW Administration Furosemide 40 mg 04/19/19 09:00 04/19/19 10:03 Lasix SLOW IVP 04/20/19 09:01 40 mg DAILY MATHEW Administration Guaifenesin 400 mg 04/16/19 09:00 04/19/19 09:30 Robitussin Sf PER TUBE 400 mg TID MATHEW Administration Piperacillin Sod/Tazobactam 100 mls @ 200 mls/hr 04/16/19 16:00 04/19/19 09: 31 Sod 3.375 gm/ Sodium Chloride IVPB 100 mls 0400,1000,1600,2200 MATHEW Administration Saccharomyces Boulardii 250 mg 04/16/19 09:00 04/19/19 09:31 Florastor PER TUBE 250 mg DAILY MATHEW Administration Sodium Chloride 10 ml 04/16/19 09:00 04/19/19 09:31 Flush - Normal Saline IVF 10 ml Q12HR MATHEW Administration - Exam General Appearance: NAD, ill appearing Eye: PERRL, anicteric sclera ENT: normocephalic atraumatic, no oropharyngeal lesions Neck - other findings: mass in neck, trach+ Heart: RRR, no murmur, no gallops, no rubs Respiratory: CTAB, no wheezes, no rales, no ronchi Gastrointestinal: soft, non-tender, non-distended, normal bowel sounds Gastrointestinal - other findings: PEG+ Extremities: no cyanosis, no clubbing, no edema Skin: normal turgor, no lesions Neurological: no focal deficits Musculoskeletal: normal tone, normal strength Psychiatric: normal affect, normal behavior Hosp A/P (1) Pneumonia Code(s): J18.9 - PNEUMONIA, UNSPECIFIED ORGANISM Status: Acute Qualifiers: Pneumonia type: due to unspecified organism Laterality: left Lung location: lower lobe of lung Qualified Code(s): J18.9 - Pneumonia, unspecified organism (2) Pleural effusion, left Code(s): J90 - PLEURAL EFFUSION, NOT ELSEWHERE CLASSIFIED Status: Acute (3) Pulmonary nodule Code(s): R91.1 - SOLITARY PULMONARY NODULE Status: Acute (4) Tracheostomy in place Code(s): Z93.0 - TRACHEOSTOMY STATUS Status: Chronic (5) PEG (percutaneous endoscopic gastrostomy) status Code(s): Z93.1 - GASTROSTOMY STATUS Status: Chronic (6) Head and neck cancer Code(s): C76.0 - MALIGNANT NEOPLASM OF HEAD, FACE AND NECK Status: Chronic (7) Anemia of chronic disease Code(s): D63.8 - ANEMIA IN OTHER CHRONIC DISEASES CLASSIFIED ELSEWHERE Status : Chronic - Plan old records reviewed/req, continue antibiotics 04/19/19 continue current treatment plan with IV antibiotics for now await pathology report from pleural fluid and based on that will decide next step medication reviewed and continue to provide symptomatic treatment and supportive care so far all culture negative repeat labs tomorrow
--- NOTE | 2019-04-19 15:24 | PRG ---
DATE OF SERVICE: 04/19/2019 SERVICE: Pulmonary Medicine. INTERVAL HISTORY: The patient is doing fine from respiratory standpoint. Breathing comfortably. No complaints of chest discomfort, nausea or vomiting. There were no interval events overnight. Otherwise, he is breathing comfortably. OBJECTIVE: VITAL SIGNS: Afebrile, pulse 80, blood pressure 117/69, respirations 16, saturation 95% on 5 L via trach collar. HEENT: Normocephalic and atraumatic. Sclerae white. Conjunctivae pink. Oral mucosa is moist without lesions. LUNGS: Decent air entry with no prolonged expiratory phase or wheezing present. HEART: Normal rate, regular. ABDOMEN: Soft, nontender, nondistended. Bowel sounds are positive. MUSCULOSKELETAL: No cyanosis or clubbing. No pitting in the bilateral lower extremities. NEUROLOGIC: Grossly nonfocal. LABORATORY DATA: WBC 19.2, hemoglobin 10.9, platelets 601,000 and rebounding. INR 1.1. Basic metabolic profile is completely unremarkable with a potassium of 3.9. All culture results remain negative to date. The cytology on the pleural fluid demonstrates no evidence of malignant cells. ASSESSMENT: 1. Acute hypoxic respiratory failure. 2. Community-acquired pneumonia, postobstructive. 3. Pleural effusion, very weak exudate, pathology negative for malignancy. 4. Pulmonary nodule versus mass. 5. Mediastinal lymphadenopathy, PET positive in the setting of pneumonia. 6. Head and neck cancer, status post tracheostomy and PEG tube placement. DISCUSSION AND PLAN: Since the cytology is negative, we will ask Surgery to upgrade his tracheostomy to a device that we can fit the endoscopic bronchial ultrasound and conventional bronchoscope through. We will try to coordinate this to occur on Monday. Pulmonary will follow. Job ID: [id number]
[2019-04-20] MEDS: Hydrocodone-Acetamin 15 ML UDCUP PER TUBE PRN ×6 (02:16→22:24)
[2019-04-20] MEDS: Piperacillin/Tazobactam 3.375 GM in Sodium Chloride 0.9% 100 ML IVPB SCH ×4 (04:33→21:57)
[2019-04-20 05:44] LABS: #Basophils 0.1 thou/uL (0.0-0.2); #Eosinphils 0.1 thou/uL (0.0-0.7); #Lymphocytes 3.7 thou/uL (1.20-3.40); #Monocytes 1.8 thou/uL (0.11-0.59); #Neutrophils 14.1 thou/uL (1.40-6.50); %Basophils 0.3 % (0.0-1.0); %Eosinophils 0.6 % (0.0-10.0); %Lymphocytes 18.8 % (21.0-51.0); %Monocytes 9.3 % (0.0-10.0); %Neutrophils 71.1 % (42.0-75.0); Hemoglobin 9.6 g/dL (14.0-18.0); Mean Corpuscular HGB CONC 31.2 g/dL (32.0-36.0); Mean Corpuscular Hemoglobin 28.2 pg (27.0-31.0); Mean Corpuscular Volume 90.4 fL (78.0-98.0); Platelet Count 591 thou/uL (130-400); RBC Distribution Width 12.9 % (11.5-14.5); White Blood Cell (WBC) Count 19.8 thou/uL (4.8-10.8)
[2019-04-20] MEDS: Vancomycin HCl 1 GM in Premix Bag 1 BAG IVPB SCH ×2 (06:06→17:44)
[2019-04-20] MEDS: Famotidine 20 MG TAB PER TUBE SCH ×2 (09:19→21:56)
[2019-04-20] MEDS: Diabetic Tussin 200 MG/10 ML UDCUP PER TUBE SCH ×3 (09:20→21:56)
[2019-04-20] MEDS: Saccharomyces boulardii 250 MG CAP PER TUBE SCH (09:20)
[2019-04-20] MEDS: Famotidine/PF 20 mg/2ml Vial SLOW IVP SCH ×2 (09:20→21:56)
[2019-04-20] MEDS: Furosemide 40 MG/4 ML VIAL SLOW IVP SCH (09:20)
[2019-04-20 09:23] LABS: Anion Gap 11 mmol/L (10-20); BUN (Urea Nitrogen) 12 mg/dL (8.4-25.7); Calc. Creatinine Clearance 123 mL/min (70-130); Calcium 8.3 mg/dL (7.8-10.44); Carbon Dioxide 29 mmol/L (23-31); Chloride 100 mmol/L (98-107); Estimated GFR-MDRD Greater than 90; Glucose 160 mg/dL (80-115); Potassium 3.6 mmol/L (3.5-5.1); Sodium 136 mmol/L (136-145)
--- NOTE | 2019-04-20 11:00 | PDOC.HOSPP ---
- Subjective Encounter Date: 04/20/19 Encounter Time: 10:30 Subjective: Patient seen and examined. No new complaints. No overnight events - Objective Vital Signs & Weight: Vital Signs (12 hours) Temp Pulse Resp BP Pulse Ox 04/20/19 10:37 94 18 96 04/20/19 08:36 97.5 F L 85 20 123/66 94 L 04/20/19 08:00 94 L 04/20/19 06:48 100 20 97 04/20/19 03:46 94 L 04/20/19 00:21 92 L Weight Admit Weight 165 lb Weight 165 lb I&O: 04/19/19 04/20/19 04/21/19 06:59 06:59 06:59 Intake Total 3000 2000 Balance 3000 2000 Result Diagrams: 04/20/19 05:05 04/20/19 08:55 Hospitalist ROS - Review of Systems ENT: denies: ear pain, ear discharge, nose pain, nose discharge, nose congestion , mouth pain, mouth swelling, throat pain, throat swelling, other Respiratory: denies: cough, dry, shortness of breath, hemoptysis, SOB with excertion, pleuritic pain, sputum, wheezing, other Cardiovascular: denies: chest pain, palpitations, orthopnea, paroxysmal noc. dyspnea, edema, light headedness, other Gastrointestinal: denies: nausea, vomiting, abdominal pain, diarrhea, constipation, melena, hematochezia, other Genitourinary: denies: dysuria, frequency, incontinence, hematuria, retention, other Musculoskeletal: denies: neck pain, shoulder pain, arm pain, back pain, hand pain, leg pain, foot pain, other - Medication Medications: Active Medications Generic Name Dose Route Start Last Admin Trade Name Freq PRN Reason Stop Dose Admin Hydrocodone Bitart/Acetaminophen 15 ml 04/17/19 11:44 04/20/19 10:01 Hydrocodone-Apap 7.5-325/15 PER TUBE 15 ml Q4H PRN Administration Severe Pain (7-10) Albuterol/Ipratropium 3 ml 04/16/19 02:30 04/20/19 10:37 Duoneb NEB 3 ml [id number] MATHEW Administration Famotidine 20 mg 04/16/19 09:00 04/20/19 09:20 Pepcid SLOW IVP Not Given Q12HR MATHEW Famotidine 20 mg 04/16/19 09:00 04/20/19 09:19 Pepcid PER TUBE 20 mg BID MATHEW Administration Fentanyl 50 mcg 04/15/19 23:59 04/18/19 23:54 Duragesic TD 50 mcg Q3D MATHEW Administration Guaifenesin 400 mg 04/16/19 09:00 04/20/19 09:20 Robitussin Sf PER TUBE 400 mg TID MATHEW Administration Piperacillin Sod/Tazobactam 100 mls @ 200 mls/hr 04/16/19 16:00 04/20/19 10: 02 Sod 3.375 gm/ Sodium Chloride IVPB 100 mls 0400,1000,1600,2200 MATHEW Administration Vancomycin HCl 1 gm/ Device 200 mls @ 200 mls/hr 04/20/19 06:00 04/20/19 06: 06 IVPB 200 mls 0600,1800 MATHEW Administration Saccharomyces Boulardii 250 mg 04/16/19 09:00 04/20/19 09:20 Florastor PER TUBE 250 mg DAILY MATHEW Administration Sodium Chloride 10 ml 04/16/19 09:00 04/20/19 09:20 Flush - Normal Saline IVF 10 ml Q12HR MATHEW Administration - Exam General Appearance: NAD, awake alert Eye: PERRL, anicteric sclera Eye - other findings: neck mass ENT: normocephalic atraumatic, no oropharyngeal lesions Neck: supple, symmetric, no JVD Heart: RRR, no murmur, no gallops Respiratory: CTAB, no wheezes, no rales Gastrointestinal: soft, non-tender, non-distended Extremities: no cyanosis, no clubbing, no edema Skin: normal turgor, no lesions Neurological: no focal deficits Musculoskeletal: normal tone, normal strength Psychiatric: normal affect, normal behavior Hosp A/P (1) Pneumonia Code(s): J18.9 - PNEUMONIA, UNSPECIFIED ORGANISM Status: Acute Qualifiers: Pneumonia type: due to unspecified organism Laterality: left Lung location: lower lobe of lung Qualified Code(s): J18.9 - Pneumonia, unspecified organism (2) Pleural effusion, left Code(s): J90 - PLEURAL EFFUSION, NOT ELSEWHERE CLASSIFIED Status: Acute (3) Pulmonary nodule Code(s): R91.1 - SOLITARY PULMONARY NODULE Status: Acute (4) Tracheostomy in place Code(s): Z93.0 - TRACHEOSTOMY STATUS Status: Chronic (5) PEG (percutaneous endoscopic gastrostomy) status Code(s): Z93.1 - GASTROSTOMY STATUS Status: Chronic (6) Head and neck cancer Code(s): C76.0 - MALIGNANT NEOPLASM OF HEAD, FACE AND NECK Status: Chronic (7) Anemia of chronic disease Code(s): D63.8 - ANEMIA IN OTHER CHRONIC DISEASES CLASSIFIED ELSEWHERE Status : Chronic - Plan old records reviewed/req, continue antibiotics 04/19/19 continue current treatment plan with IV antibiotics for now await pathology report from pleural fluid and based on that will decide next step medication reviewed and continue to provide symptomatic treatment and supportive care so far all culture negative repeat labs tomorrow will need bronchoscopy on monday continue antibiotics
[2019-04-20] MEDS ORDERED: Lidocaine 1% (PF) 30 ML VIAL ONE (12:17)
[2019-04-20] MEDS ORDERED: Morphine 2 MG/ML SYRINGE SLOW IVP SCH (13:00)
--- NOTE | 2019-04-20 18:53 | CON ---
DATE OF CONSULTATION: 04/20/2019 REASON FOR CONSULTATION: Changing out trach for larger trach. CONSULTING PHYSICIAN: Dr. Tolliver. HISTORY OF PRESENT ILLNESS: Mr. 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 In order to work up the lymphadenopathy in the mediastinum, they wanted to be able to place a larger bronchoscope to guide the fine-needle aspirate of this. In order to do that, they needed a larger tracheostomy tube in place. He did have a previous #8 Shiley tracheostomy tube that was placed on February 28. He had it downsized around the first part of March to a #6 uncuffed Shiley. He has not had any trouble breathing. He has not had any problems with his tracheostomy tube. No other complaints at this time. PAST MEDICAL HISTORY AND REVIEW OF SYSTEMS: Please see his H and P for further details of his past medical history and review of systems. PHYSICAL EXAMINATION: Neck shows a very large left level 3 cervical lymph node about 8 cm in size, this is not involved with the tracheostomy. The #[address] is in place and the tracheostomy is well healed. No evidence of any problems. PROCEDURE NOTE: After getting his consent, I injected around the tracheostomy stoma with 1% lidocaine and 1:100,000 epinephrine and squirted some of the 1% lidocaine with 1:100,000 epinephrine in the trach to obtain some anesthesia in the area. After giving it several minutes to obtain some adequate anesthesia, the #6 Shiley trach was removed and a #8 cuffed Shiley trach was taken coating it with K-Y jelly. Using some pressure, I was able to dilate up the tracheostomy stoma enough to get the tracheostomy tube in place and then inflated the cuff to keep any bleeding from going down into his trachea. He was breathing easily through it and did bring up some thick mucus and no blood. The tracheostomy tie was placed around it and was tied in place. The wound was inspected and appeared to be okay. It just had a little bit of oozing around it. Trach dressing was reapplied and left the cuff up for about an hour to catch any blood, and as it continues to bleed, but should allow them to do the bronchoscopy. IMPRESSION: Squamous cell carcinoma, supraglottic metastasis to the neck, needed a larger tracheostomy tube for bronchoscopy. PLAN: The #8 Shiley trach was placed and seems to be functioning well. Keep the cuff inflated 1 hour and then should be able to take it down. He is nonverbal at this point time. Job ID: [id number]
[2019-04-21] MEDS: Hydrocodone-Acetamin 15 ML UDCUP PER TUBE PRN ×6 (02:03→21:58)
[2019-04-21] MEDS: Piperacillin/Tazobactam 3.375 GM in Sodium Chloride 0.9% 100 ML IVPB SCH ×4 (03:51→21:56)
[2019-04-21] MEDS: Vancomycin HCl 1 GM in Premix Bag 1 BAG IVPB SCH ×2 (05:59→18:06)
[2019-04-21] MEDS: Diabetic Tussin 200 MG/10 ML UDCUP PER TUBE SCH ×3 (09:31→21:56)
[2019-04-21] MEDS: Famotidine/PF 20 mg/2ml Vial SLOW IVP SCH ×2 (09:32→21:58)
[2019-04-21] MEDS: Saccharomyces boulardii 250 MG CAP PER TUBE SCH (09:32)
[2019-04-21] MEDS: Famotidine 20 MG TAB PER TUBE SCH ×2 (09:56→21:56)
[2019-04-21 11:32] LABS: Anion Gap 19 mmol/L (10-20); BUN (Urea Nitrogen) 12 mg/dL (8.4-25.7); Calc. Creatinine Clearance 123 mL/min (70-130); Calcium 8.6 mg/dL (7.8-10.44); Carbon Dioxide 19 mmol/L (23-31); Chloride 104 mmol/L (98-107); Estimated GFR-MDRD Greater than 90; Glucose 111 mg/dL (80-115); Potassium 4.8 mmol/L (3.5-5.1); Sodium 137 mmol/L (136-145)
--- NOTE | 2019-04-21 14:35 | PDOC.HOSPP ---
- Subjective Encounter Date: 04/21/19 Encounter Time: 10:30 Subjective: Patient seen and examined. No new complaints. No overnight events - Objective Vital Signs & Weight: Vital Signs (12 hours) Temp Pulse Resp BP Pulse Ox 04/21/19 13:26 92 20 04/21/19 10:36 95 20 95 04/21/19 08:55 92 L 04/21/19 08:00 99.0 F 82 18 109/62 92 L 04/21/19 06:54 93 24 H 95 04/21/19 04:10 98.3 F 93 16 134/77 95 04/21/19 03:21 96 Weight Admit Weight 165 lb Weight 165 lb I&O: 04/20/19 04/21/19 04/22/19 06:59 06:59 06:59 Intake Total 1999 1800 Balance 1999 1800 Result Diagrams: 04/20/19 05:05 04/21/19 11:00 Hospitalist ROS - Review of Systems ENT: denies: ear pain, ear discharge, nose pain, nose discharge, nose congestion , mouth pain, mouth swelling, throat pain, throat swelling, other Respiratory: denies: cough, dry, shortness of breath, hemoptysis, SOB with excertion, pleuritic pain, sputum, wheezing, other Cardiovascular: denies: chest pain, palpitations, orthopnea, paroxysmal noc. dyspnea, edema, light headedness, other Gastrointestinal: denies: nausea, vomiting, abdominal pain, diarrhea, constipation, melena, hematochezia, other Genitourinary: denies: dysuria, frequency, incontinence, hematuria, retention, other Musculoskeletal: denies: neck pain, shoulder pain, arm pain, back pain, hand pain, leg pain, foot pain, other - Medication Medications: Active Medications Generic Name Dose Route Start Last Admin Trade Name Freq PRN Reason Stop Dose Admin Hydrocodone Bitart/Acetaminophen 15 ml 04/17/19 11:44 04/21/19 14:22 Hydrocodone-Apap 7.5-325/15 PER TUBE 15 ml Q4H PRN Administration Severe Pain (7-10) Albuterol/Ipratropium 3 ml 04/16/19 02:30 04/21/19 13:26 Duoneb NEB 3 ml [id number] MATHEW Administration Famotidine 20 mg 04/16/19 09:00 04/21/19 09:32 Pepcid SLOW IVP 20 mg Q12HR MATHEW Administration Famotidine 20 mg 04/16/19 09:00 04/21/19 09:56 Pepcid PER TUBE Not Given BID MATHEW Fentanyl 50 mcg 04/15/19 23:59 04/18/19 23:54 Duragesic TD 50 mcg Q3D MATHEW Administration Guaifenesin 400 mg 04/16/19 09:00 04/21/19 14:21 Robitussin Sf PER TUBE 400 mg TID MATHEW Administration Piperacillin Sod/Tazobactam 100 mls @ 200 mls/hr 04/16/19 16:00 04/21/19 09: 33 Sod 3.375 gm/ Sodium Chloride IVPB 100 mls 0400,1000,1600,2200 MATHEW Administration Vancomycin HCl 1 gm/ Device 200 mls @ 200 mls/hr 04/20/19 06:00 04/21/19 05: 59 IVPB 200 mls 0600,1800 MATHEW Administration Saccharomyces Boulardii 250 mg 04/16/19 09:00 04/21/19 09:32 Florastor PER TUBE 250 mg DAILY MATHEW Administration Sodium Chloride 10 ml 04/16/19 09:00 04/21/19 09:33 Flush - Normal Saline IVF 10 ml Q12HR MATHEW Administration - Exam General Appearance: NAD, awake alert Eye: PERRL, anicteric sclera ENT: normocephalic atraumatic, no oropharyngeal lesions Neck: supple, symmetric, no JVD, no thyromegaly Neck - other findings: neck mass, trach+ Heart: RRR, no murmur, no gallops Respiratory: CTAB, no wheezes, no rales Gastrointestinal: soft, non-tender, non-distended, normal bowel sounds Gastrointestinal - other findings: peg + Extremities: no cyanosis, no clubbing Skin: normal turgor, no lesions Neurological: no focal deficits Musculoskeletal: normal tone, normal strength Psychiatric: normal affect, normal behavior Hosp A/P (1) Pneumonia Code(s): J18.9 - PNEUMONIA, UNSPECIFIED ORGANISM Status: Acute Qualifiers: Pneumonia type: due to unspecified organism Laterality: left Lung location: lower lobe of lung Qualified Code(s): J18.9 - Pneumonia, unspecified organism (2) Pleural effusion, left Code(s): J90 - PLEURAL EFFUSION, NOT ELSEWHERE CLASSIFIED Status: Acute (3) Pulmonary nodule Code(s): R91.1 - SOLITARY PULMONARY NODULE Status: Acute (4) Tracheostomy in place Code(s): Z93.0 - TRACHEOSTOMY STATUS Status: Chronic (5) PEG (percutaneous endoscopic gastrostomy) status Code(s): Z93.1 - GASTROSTOMY STATUS Status: Chronic (6) Head and neck cancer Code(s): C76.0 - MALIGNANT NEOPLASM OF HEAD, FACE AND NECK Status: Chronic (7) Anemia of chronic disease Code(s): D63.8 - ANEMIA IN OTHER CHRONIC DISEASES CLASSIFIED ELSEWHERE Status : Chronic - Plan old records reviewed/req, continue antibiotics 04/19/19 continue current treatment plan with IV antibiotics for now await pathology report from pleural fluid and based on that will decide next step medication reviewed and continue to provide symptomatic treatment and supportive care so far all culture negative repeat labs tomorrow will need bronchoscopy on monday continue antibiotics 04/21/19 tomorrow bronchoscopy continue current treatment plan ENT changed tracheostomy tube
[2019-04-21] MEDS ORDERED: Furosemide 20 MG/2 ML VIAL SLOW IVP SCH (17:30)
--- NOTE | 2019-04-21 17:38 | PRG ---
DATE OF SERVICE: 04/21/2019 SERVICE: Pulmonary Medicine. INTERVAL HISTORY: The patient is doing fine from respiratory standpoint. His got his tracheostomy upsized today at bedside. Otherwise, there has been no change to his condition. We are ready to move forward with his surgical procedure tomorrow. PHYSICAL EXAMINATION: VITAL SIGNS: Afebrile with a T-max of 99.0. Pulse 95, blood pressure 109/62, respirations 20, and saturation 95%, currently on T-collar. HEENT: Normocephalic and atraumatic. Sclerae white. Conjunctivae pink. Oral mucosa is moist without lesions. LUNGS: Decent air entry. No prolonged expiratory phase or wheezing is appreciated. HEART: Normal rate. Regular. ABDOMEN: Soft, nontender, and nondistended. Bowel sounds are positive. MUSCULOSKELETAL: No cyanosis or clubbing. There is 2+ pitting in the bilateral lower extremities with chronic stasis changes. LABORATORY DATA: Blood cultures x2 and body fluid culture negative to-date. ASSESSMENT: 1. Acute hypoxic respiratory failure. 2. Community-acquired pneumonia, postobstructive. 3. Pleural effusion, very weak exudate, pathology negative for malignancy. 4. Pulmonary nodule versus mass. 5. Mediastinal lymphadenopathy, PET positive in the setting of pneumonia. 6. Head and neck cancer, status post tracheostomy and percutaneous endoscopic gastrostomy tube placement. DISCUSSION AND PLAN: We will move downstairs tomorrow for his endoscopic bronchial ultrasound-guided transbronchial needle aspiration of his mediastinal lymphadenopathy. In addition to this, we will see if we can get a biopsy of the hilar mass. A dose of Lasix will be provided tomorrow morning. Pulmonary will follow. Job ID: [id number]
[2019-04-22] MEDS: fentaNYL 50 mcg/hour Patch TD SCH (00:40)
[2019-04-22] MEDS: Morphine 2 MG/ML SYRINGE SLOW IVP PRN ×2 (02:13→05:59)
[2019-04-22] MEDS: Piperacillin/Tazobactam 3.375 GM in Sodium Chloride 0.9% 100 ML IVPB SCH ×4 (04:10→22:11)
[2019-04-22 06:26] LABS: Vancomycin, Trough 16.4 ug/mL
[2019-04-22] MEDS: Vancomycin HCl 1 GM in Premix Bag 1 BAG IVPB SCH ×2 (06:28→18:21)
[2019-04-22] MEDS: Famotidine/PF 20 mg/2ml Vial SLOW IVP SCH ×2 (08:26→22:10)
[2019-04-22] MEDS: Famotidine 20 MG TAB PER TUBE SCH ×2 (08:26→22:09)
[2019-04-22] MEDS: Saccharomyces boulardii 250 MG CAP PER TUBE SCH (10:04)
[2019-04-22] MEDS: Diabetic Tussin 200 MG/10 ML UDCUP PER TUBE SCH ×3 (10:04→22:10)
--- NOTE | 2019-04-22 11:20 | PDOC.HOSPP ---
- Subjective Encounter Date: 04/22/19 Encounter Time: 09:30 non-verbal Subjective: Patient seen and examined. No new complaints. No overnight events - Objective Vital Signs & Weight: Vital Signs (12 hours) Temp Pulse Resp BP Pulse Ox 04/22/19 08:20 94 L 04/22/19 08:00 99.1 F 91 20 143/82 H 94 L 04/22/19 07:36 92 L 04/22/19 07:29 88 20 97 04/22/19 03:37 97 Weight Admit Weight 165 lb Weight 165 lb I&O: 04/21/19 04/22/19 04/23/19 06:59 06:59 06:59 Intake Total 1800 360 Balance 1800 360 Result Diagrams: 04/20/19 05:05 04/21/19 11:00 Hospitalist ROS - Review of Systems ENT: denies: ear pain, ear discharge, nose pain, nose discharge, nose congestion , mouth pain, mouth swelling, throat pain, throat swelling, other Respiratory: denies: cough, dry, shortness of breath, hemoptysis, SOB with excertion, pleuritic pain, sputum, wheezing, other Cardiovascular: denies: chest pain, palpitations, orthopnea, paroxysmal noc. dyspnea, edema, light headedness, other Gastrointestinal: denies: nausea, vomiting, abdominal pain, diarrhea, constipation, melena, hematochezia, other Genitourinary: denies: dysuria, frequency, incontinence, hematuria, retention, other - Medication Medications: Active Medications Generic Name Dose Route Start Last Admin Trade Name Freq PRN Reason Stop Dose Admin Hydrocodone Bitart/Acetaminophen 15 ml 04/17/19 11:44 04/21/19 21:58 Hydrocodone-Apap 7.5-325/15 PER TUBE 15 ml Q4H PRN Administration Severe Pain (7-10) Albuterol/Ipratropium 3 ml 04/16/19 02:30 04/22/19 10:59 Duoneb NEB Not Given [id number] MATHEW Famotidine 20 mg 04/16/19 09:00 04/22/19 08:26 Pepcid SLOW IVP 20 mg Q12HR MATHEW Administration Famotidine 20 mg 04/16/19 09:00 04/22/19 08:26 Pepcid PER TUBE Not Given BID MATHEW Fentanyl 50 mcg 04/15/19 23:59 04/22/19 00:40 Duragesic TD 50 mcg Q3D MATHEW Administration Guaifenesin 400 mg 04/16/19 09:00 04/22/19 10:04 Robitussin Sf PER TUBE Not Given TID MATHEW Piperacillin Sod/Tazobactam 100 mls @ 200 mls/hr 04/16/19 16:00 04/22/19 09: 59 Sod 3.375 gm/ Sodium Chloride IVPB 100 mls 0400,1000,1600,2200 MATHEW Administration Vancomycin HCl 1 gm/ Device 200 mls @ 200 mls/hr 04/20/19 06:00 04/22/19 06: 28 IVPB 200 mls 0600,1800 MATHEW Administration Saccharomyces Boulardii 250 mg 04/16/19 09:00 04/22/19 10:04 Florastor PER TUBE Not Given DAILY MATHEW Sodium Chloride 10 ml 04/16/19 09:00 04/22/19 08:26 Flush - Normal Saline IVF 10 ml Q12HR MATHEW Administration - Exam General Appearance: NAD, awake alert Eye: PERRL, anicteric sclera ENT: normocephalic atraumatic, no oropharyngeal lesions Neck: supple, symmetric, no JVD Neck - other findings: trach+ Heart: RRR, no murmur, no gallops Respiratory: CTAB, no wheezes, no rales Gastrointestinal: soft, non-tender, non-distended Extremities: no cyanosis, no clubbing Skin: normal turgor, no lesions Neurological: no focal deficits Musculoskeletal: normal tone, normal strength Psychiatric: normal affect, normal behavior Hosp A/P (1) Pneumonia Code(s): J18.9 - PNEUMONIA, UNSPECIFIED ORGANISM Status: Acute Qualifiers: Pneumonia type: due to unspecified organism Laterality: left Lung location: lower lobe of lung Qualified Code(s): J18.9 - Pneumonia, unspecified organism (2) Pleural effusion, left Code(s): J90 - PLEURAL EFFUSION, NOT ELSEWHERE CLASSIFIED Status: Acute (3) Pulmonary nodule Code(s): R91.1 - SOLITARY PULMONARY NODULE Status: Acute (4) Tracheostomy in place Code(s): Z93.0 - TRACHEOSTOMY STATUS Status: Chronic (5) PEG (percutaneous endoscopic gastrostomy) status Code(s): Z93.1 - GASTROSTOMY STATUS Status: Chronic (6) Head and neck cancer Code(s): C76.0 - MALIGNANT NEOPLASM OF HEAD, FACE AND NECK Status: Chronic (7) Anemia of chronic disease Code(s): D63.8 - ANEMIA IN OTHER CHRONIC DISEASES CLASSIFIED ELSEWHERE Status : Chronic - Plan old records reviewed/req, continue antibiotics 04/19/19 continue current treatment plan with IV antibiotics for now await pathology report from pleural fluid and based on that will decide next step medication reviewed and continue to provide symptomatic treatment and supportive care so far all culture negative repeat labs tomorrow will need bronchoscopy on monday continue antibiotics 04/21/19 tomorrow bronchoscopy continue current treatment plan ENT changed tracheostomy tube 04/22/19 today bronchoscopy continue current treatment plan wean off oxygen as tolerated discharge planning based on pulmonary clear
[2019-04-22] MEDS ORDERED: Lidocaine 1% PF 5 ML VIAL ONE (11:32)
[2019-04-22] MEDS ORDERED: PROPOFOL 200 MG/20 ML VIAL ONE (11:32)
[2019-04-22] MEDS ORDERED: Ondansetron PF 4 MG/2 ML Vial ONE (11:32)
[2019-04-22] MEDS ORDERED: Albuterol Sulfate HFA (OR ONLY) ONE (12:18)
--- NOTE | 2019-04-22 12:52 | PRG ---
DATE OF SERVICE: 04/22/2019 SERVICE: Pulmonary Medicine. INTERVAL HISTORY: The patient is doing really well from respiratory standpoint. He has not had any complaints of fevers, chills, cough, sputum production, nausea, or vomiting. Otherwise, he is in his usual state of health and has no specific complaints. He is looking forward to having this procedure done. PHYSICAL EXAMINATION: VITAL SIGNS: Afebrile, currently with a T-max of 99.1, pulse 91, blood pressure 143/82, respirations 20, saturations 90%, on T-collar. HEENT: Normocephalic and atraumatic. Sclerae are white. Conjunctivae are pink. Oral mucosa is moist without lesions. LUNGS: Decent air entry with no prolonged expiratory phase or wheezing present. HEART: Normal rate, regular. ABDOMEN: Soft, nontender, and nondistended. Bowel sounds are positive. MUSCULOSKELETAL: No cyanosis or clubbing. There is pitting edema of the bilateral lower extremities, it is slowly improving. : No Rolle. NEUROLOGIC: Grossly nonfocal. ASSESSMENT: 1. Acute hypoxic respiratory failure. 2. Community-acquired pneumonia, postobstructive. 3. Pleural effusion, very weak exudate, pathology negative for malignancy. 4. Pulmonary nodule versus mass. 5. Mediastinal lymphadenopathy, PET positive in the setting of pneumonia. 6. Head and neck cancer, status post tracheostomy and percutaneous endoscopy and PEG tube placement. DISCUSSION AND PLAN: We will move to the operating room. Hopefully, we will be able to successfully pull off both an endoscopic bronchial ultrasound-guided biopsy of the mediastinal lymph node and also a biopsy of this possible pulmonary mass. Pulmonary will continue to follow. As time goes on, we will continue to diurese the patient. Shira will be resumed tomorrow morning. Job ID: [id number]
[2019-04-22] MEDS: Furosemide 40 MG/4 ML VIAL SLOW IVP SCH (14:00)
[2019-04-22] MEDS ORDERED: Morphine 4 MG/ML VIAL ONE (14:14)
--- NOTE | 2019-04-22 14:47 | RAD ---
RADIOGRAPH CHEST 1 VIEW: DATE: 04/22/2019 TIME: 2:15 PM HISTORY: 61-year-old male with dyspnea COMPARISON: 04/17/2019 FINDINGS: The previously demonstrated large left pleural effusion has increased in volume, and now reaches the left apex. There is a small portion of aerated left upper lobe. The rest of the left lung is densely totally opacified. No pneumothorax. Right IJ implantable vascular access port. Tracheostomy t ube. Right lung is relatively clear. Questionable small right pleural effusion. IMPRESSION: 1. Interval increase in volume of large left pleural effusion. 2. No pneumothorax.
[2019-04-22] MEDS ORDERED: Morphine 2 MG/ML SYRINGE ONE ×2 (15:40→16:36)
[2019-04-22 15:48] LABS: BF Color Red; BF WBC/Nonhematics Ct. - Manua 409 /cumm; Body Fluid Source Bronchial Washings; Clarity Cloudy/Turbid (Clear); Tube # EDTA
[2019-04-22 16:08] LABS: Lymphocytes 5 %
[2019-04-22 16:10] LABS: BF Segmented Neutrophils 65 %; Cell Count Non Hematic 30 %
--- NOTE | 2019-04-22 16:38 | RAD ---
EXAM: CHEST ONE VIEW HISTORY: Post thoracentesis. COMPARISON: 04/22/2019 at 1415 hours FINDINGS: There has been interval decrease in left pleural effusion when compared to the prior study likely rel ated to interval thoracentesis, but a moderate left pleural effusion and associated atelectasis does persist. Left cardiac border is obscured. Pulmonary vasculature is within normal limits. A right internal jugular vein Mediport catheter remains in place. Tracheostomy device is also again seen. The right lung remains clear. Remote left-sided rib fractures are seen. No other interval change. IMPRESSION: Interval decrease in left pleural effusion likely related to interval thoracentesis. However, a moder ate-sized left pleural effusion and atelectasis is present. No pneumothorax is identified.
--- NOTE | 2019-04-22 17:40 | OP ---
DATE OF PROCEDURE: 04/22/2019 SERVICE: Pulmonary Medicine. PROCEDURES PERFORMED: Fiberoptic bronchoscopy with: 1. Endoscopic bronchial ultrasound-guided transbronchial needle aspiration of station R2. 2. Visual airway inspection. 3. Endobronchial brushing from the left upper lobe. 4. Bronchial wash from the left upper lobe. 5. Endobronchial biopsy of the right middle lobe orifice and right lower lobe. PREPROCEDURE DIAGNOSES: 1. Pulmonary mass. 2. Mediastinal lymphadenopathy. POSTPROCEDURE DIAGNOSES: 1. Pulmonary mass of the left upper lobe with extrinsic compression of the left upper lobe orifices. 2. Endobronchial bulging of the right middle lobe orifice with debris in the right lower lobe. 3. Mediastinal lymphadenopathy, RSOP demonstrates benign lymph node. PROCEDURE DIRECTOR OF FOOD AND NUTRITION SERVICES: Medhat Archer MD PREANESTHESIA ASSESSMENT: H and P had been performed. The patient's medications and allergies were reviewed. Informed consent was obtained after discussing the risks, benefits, and rationale for performing the procedure as well as alternative options. DESCRIPTION OF PROCEDURE: The patient was positively identified using name and date of . The proposed procedure was verified. After induction of anesthesia, the Olympus fiberoptic bronchoscope was introduced through the tracheostomy tube. The everett survey was performed, and a sample was collected from the R2 lymph node. No significant bleeding was identified. I attempted to look at the left upper lobe lesion with the endoscopic bronchial ultrasound, but that piece of equipment could not get distal enough to clearly identify the target. This bronchoscope was subsequently removed from the patient, and replaced with conventional fiberoptic bronchoscope. Tracheobronchial tree inspection was carried out with identification of the right upper lobe and right lower lobe. There was endobronchial bulging of the right middle lobe. The mucosa looked normal, but there was near 100% occlusion of the right middle lobe bronchus. The biopsy forceps could easily pass distal to this lesion. This was biopsied directly. There was also some debris in the right lower lobe, which was also removed and sent for pathology. After removing this, all distal airways could be identified. The lingula and left upper lobe had a very severe extrinsic compression. No specific endobronchial disease was identified; however. The endobronchial brush was able to pass into many distal airways, though I could not identify their destinations. The brush sample was sent for analysis. A bronchial washing was performed with irrigation of the left upper lobe segments, but the severe, extrinsic compression prevented a true bronchial alveolar lavage. Hemostasis was verified and the bronchoscope was removed from the patient. Postprocedure fluoroscopy did not demonstrate a pneumothorax. The effusion that we previously identified had enlarged significantly. FINDINGS: 1. Endobronchial bulging of the right middle lobe bronchus with near 100% occlusion, though biopsy forceps could pass distal to the lesion. 2. Extrinsic compression of the left upper lobe, and lingula bronchus with no overt endobronchial disease identified. 3. Franca appeared fairly sharp. 4. Rapid on-site evaluation demonstrated lymphocytes. 5. Secretions were moderate, but thin and clear. SPECIMENS OBTAINED: 1. FNA of station R2 for cytology. 2. FNA of station R2 for cell block. 3. Microbiology on bronchial washing. 4. Pathology on endobronchial biopsy of the right middle lobe endobronchial bulge, and brushing/wash of the left upper lobe. COMPLICATIONS: None. ESTIMATED BLOOD LOSS: 5 mL. FLUOROSCOPY TIME: 51 seconds. DISPOSITION: The patient will recover in the postanesthesia care unit and return to his hospital bed when he meets criteria. Job ID: [id number] [facility]
[2019-04-22] MEDS: Hydrocodone-Acetamin 15 ML UDCUP PER TUBE PRN ×2 (17:45→22:09)
--- NOTE | 2019-04-22 17:45 | OP ---
DATE OF PROCEDURE: 04/22/2019 SERVICE: Pulmonary Medicine. PROCEDURE PERFORMED: Ultrasound-guided thoracentesis on the left. PREPROCEDURE DIAGNOSIS: 1. Pleural effusion. 2. Acute hypoxic respiratory failure. POSTPROCEDURE DIAGNOSES: 1. Pleural effusion. 2. Acute hypoxic respiratory failure. MEDICATIONS: Lidocaine 1% without epinephrine, 8 mL. CONSENT: The consent and benefits of this procedure were discussed with the patient at bedside. All questions were answered and alternative options explained. DESCRIPTION OF PROCEDURE: Time-out was performed by the procedure team and the patient. The patient was positively identified using name and date of . The procedure site was marked. Vital sign monitoring was accomplished by noninvasive hemodynamic monitoring, pulse oximetry, and telemetry. In the seated position, the left posterior hemithorax was examined using ultrasound probe. The diaphragm and pleural fluid were easily identified. The skin was prepped and draped in sterile fashion and anesthetized with 1% lidocaine without epinephrine. A Finder needle was inserted in the pleural space with return of clear yellow pleural fluid. A pleural drainage catheter was inserted in the same location and a total quantity of 1200 mL of pleural fluid was withdrawn by syringe pump technique. A sample was sent for analysis. Evacuation of fluid was stopped because the patient started having onset of referred pain to the diaphragm. At the end of the procedure, estimated pleural pressures, measured by manometry, was -17 cm of pleural fluid. The intact catheter was withdrawn on exhalation and a sterile dressing was applied. The patient had stable vitals throughout the entire procedure. ESTIMATED BLOOD LOSS: Less than 2 mL. COMPLICATIONS: None. Job ID: [id number]
[2019-04-23] MEDS: Piperacillin/Tazobactam 3.375 GM in Sodium Chloride 0.9% 100 ML IVPB SCH ×2 (03:37→10:26)
[2019-04-23] MEDS: Vancomycin HCl 1 GM in Premix Bag 1 BAG IVPB SCH (05:00)
[2019-04-23 05:32] LABS: #Basophils 0.1 thou/uL (0.0-0.2); #Eosinphils 0.2 thou/uL (0.0-0.7); #Lymphocytes 3.2 thou/uL (1.20-3.40); #Monocytes 1.5 thou/uL (0.11-0.59); #Neutrophils 9.4 thou/uL (1.40-6.50); %Basophils 0.6 % (0.0-1.0); %Eosinophils 1.4 % (0.0-10.0); %Lymphocytes 22.3 % (21.0-51.0); %Monocytes 10.2 % (0.0-10.0); %Neutrophils 65.5 % (42.0-75.0); Hemoglobin 9.4 g/dL (14.0-18.0); Mean Corpuscular HGB CONC 31.8 g/dL (32.0-36.0); Mean Platelet Volume 6.7 fL (7.4-10.4); Platelet Count 519 thou/uL (130-400); Red Blood Cell (RBC) Count 3.35 mill/uL (4.70-6.10); White Blood Cell (WBC) Count 14.3 thou/uL (4.8-10.8)
[2019-04-23] MEDS: Furosemide 40 MG/4 ML VIAL SLOW IVP SCH ×2 (05:36→14:45)
[2019-04-23] MEDS: Hydrocodone-Acetamin 15 ML UDCUP PER TUBE PRN ×5 (05:37→21:25)
[2019-04-23 05:53] LABS: Anion Gap 9 mmol/L (10-20); BUN (Urea Nitrogen) 10 mg/dL (8.4-25.7); Calc. Creatinine Clearance 134 mL/min (70-130); Calcium 8.3 mg/dL (7.8-10.44); Carbon Dioxide 30 mmol/L (23-31); Chloride 101 mmol/L (98-107); Estimated GFR-MDRD Greater than 90; Glucose 98 mg/dL (80-115); Magnesium 1.9 mg/dL (1.6-2.6); Phosphorus 3.1 mg/dL (2.3-4.7); Potassium 3.6 mmol/L (3.5-5.1); Sodium 136 mmol/L (136-145)
[2019-04-23] MEDS: Famotidine/PF 20 mg/2ml Vial SLOW IVP SCH (08:31)
[2019-04-23] MEDS: Diabetic Tussin 200 MG/10 ML UDCUP PER TUBE SCH ×3 (08:33→21:24)
[2019-04-23] MEDS: Saccharomyces boulardii 250 MG CAP PER TUBE SCH (08:33)
[2019-04-23] MEDS: Famotidine 20 MG TAB PER TUBE SCH (08:33)
[2019-04-23] MEDS ORDERED: Amoxicillin/Potassium Clav 875 MG TAB PO SCH (13:30)
--- NOTE | 2019-04-23 13:40 | PRG ---
DATE OF SERVICE: 04/23/2019 SERVICE: Pulmonary Medicine. INTERVAL HISTORY: The patient is doing great from respiratory standpoint. He is breathing comfortably. No complaints of chest discomfort, nausea or vomiting. Otherwise, there has been no interval change to his condition. He underwent a thoracentesis yesterday evening. There was a significant pocket of fluid that once again was present. PHYSICAL EXAMINATION: VITAL SIGNS: Afebrile, pulse 72, blood pressure 112/65, respirations 16, saturation 100%, currently on T collar, 5 L/minute. HEENT: Normocephalic. Atraumatic. NECK: There is a large growth on the left neck. Tracheostomy is in good position. It is clean, dry, and intact. LUNGS: Better air entry on the left. Very good air entry on the right with no prolonged expiratory phase or wheezing appreciated. HEART: Normal rate, regular. ABDOMEN: Soft, nontender, nondistended, bowel sounds are positive. MUSCULOSKELETAL: No cyanosis or clubbing. No pitting in the bilateral lower extremities. NEUROLOGIC: Grossly nonfocal. LABORATORY DATA: WBC 14.3, hemoglobin 9.4, platelets 519,000. Basic metabolic profile is completely unremarkable. Magnesium and phosphorous fall within normal limits. All microbiology is negative to date. Pathology on the lung biopsy and fine-needle aspiration are currently pending. ASSESSMENT: 1. Acute hypoxic respiratory failure. 2. Community-acquired pneumonia, postobstructive. 3. Pleural effusion, very weak exudate, pathology negative. 4. Pulmonary nodule. 5. Mediastinal lymphadenopathy, PET positive in the setting of pneumonia. 6. Head and neck cancer, status post tracheostomy and PEG tube. DISCUSSION AND PLAN: The patient is doing outstanding from respiratory standpoint. He can be considered for discharge from the hospital. I will switch his antibiotics over to p.o. Augmentin which I would like for him to continue for the next 2 weeks. He will also need to go out on PRN Lasix to be taken on as needed basis if he has a.m. swelling. I will have him return to clinic to see me mid week next week so that we can review pathology results. He will also need close followup with Oncology. Job ID: [id number] [facility]
--- NOTE | 2019-04-23 14:01 | PDOC.HOSPP ---
- Subjective Encounter Date: 04/23/19 Encounter Time: 08:30 Subjective: Patient seen and examined. No new complaints. No overnight events - Objective Vital Signs & Weight: Vital Signs (12 hours) Temp Pulse Resp BP Pulse Ox 04/23/19 10:39 62 16 100 04/23/19 08:00 98.4 F 72 22 H 112/65 94 L 04/23/19 07:34 96 04/23/19 07:30 74 16 96 04/23/19 02:11 75 18 99 Weight Admit Weight 165 lb Weight 165 lb I&O: 04/22/19 04/23/19 04/24/19 06:59 06:59 06:59 Intake Total 360 2330 720 Output Total 125 Balance 360 7375 720 Result Diagrams: 04/23/19 05:20 04/23/19 05:20 Hospitalist ROS - Review of Systems ENT: denies: ear pain, ear discharge, nose pain, nose discharge, nose congestion , mouth pain, mouth swelling, throat pain, throat swelling, other Respiratory: denies: cough, dry, shortness of breath, hemoptysis, SOB with excertion, pleuritic pain, sputum, wheezing, other Cardiovascular: denies: chest pain, palpitations, orthopnea, paroxysmal noc. dyspnea, edema, light headedness, other Gastrointestinal: denies: nausea, vomiting, abdominal pain, diarrhea, constipation, melena, hematochezia, other Genitourinary: denies: dysuria, frequency, incontinence, hematuria, retention, other Musculoskeletal: denies: neck pain, shoulder pain, arm pain, back pain, hand pain, leg pain, foot pain, other - Medication Medications: Active Medications Generic Name Dose Route Start Last Admin Trade Name Freq PRN Reason Stop Dose Admin Hydrocodone Bitart/Acetaminophen 15 ml 04/17/19 11:44 04/23/19 08:34 Hydrocodone-Apap 7.5-325/15 PER TUBE 15 ml Q4H PRN Administration Severe Pain (7-10) Fentanyl 50 mcg 04/15/19 23:59 04/22/19 00:40 Duragesic TD 50 mcg Q3D MATHEW Administration Furosemide 40 mg 04/22/19 14:00 04/23/19 05:36 Lasix SLOW IVP 40 mg 0600,1400 MATHEW Administration Guaifenesin 400 mg 04/16/19 09:00 04/23/19 08:33 Robitussin Sf PER TUBE 400 mg TID MATHEW Administration Saccharomyces Shellyi 250 mg 04/16/19 09:00 04/23/19 08:33 Florastor PER TUBE 250 mg DAILY MATHEW Administration Sodium Chloride 10 ml 04/16/19 09:00 04/23/19 08:51 Flush - Normal Saline IVF 10 ml Q12HR MATHEW Administration - Exam General Appearance: NAD, awake alert Eye: PERRL, anicteric sclera ENT: normocephalic atraumatic, no oropharyngeal lesions Neck: supple, symmetric, no JVD Heart: RRR, no rubs Respiratory: CTAB, no wheezes, no rales Gastrointestinal: soft, non-tender, non-distended, normal bowel sounds Extremities: no cyanosis, no clubbing Skin: normal turgor, no lesions Neurological: no focal deficits Musculoskeletal: normal tone, normal strength Psychiatric: normal affect, normal behavior Hosp A/P (1) Pneumonia Code(s): J18.9 - PNEUMONIA, UNSPECIFIED ORGANISM Status: Acute Qualifiers: Pneumonia type: due to unspecified organism Laterality: left Lung location: lower lobe of lung Qualified Code(s): J18.9 - Pneumonia, unspecified organism (2) Pleural effusion, left Code(s): J90 - PLEURAL EFFUSION, NOT ELSEWHERE CLASSIFIED Status: Acute (3) Pulmonary nodule Code(s): R91.1 - SOLITARY PULMONARY NODULE Status: Acute (4) Tracheostomy in place Code(s): Z93.0 - TRACHEOSTOMY STATUS Status: Chronic (5) PEG (percutaneous endoscopic gastrostomy) status Code(s): Z93.1 - GASTROSTOMY STATUS Status: Chronic (6) Head and neck cancer Code(s): C76.0 - MALIGNANT NEOPLASM OF HEAD, FACE AND NECK Status: Chronic (7) Anemia of chronic disease Code(s): D63.8 - ANEMIA IN OTHER CHRONIC DISEASES CLASSIFIED ELSEWHERE Status : Chronic - Plan old records reviewed/req 04/19/19 continue current treatment plan with IV antibiotics for now await pathology report from pleural fluid and based on that will decide next step medication reviewed and continue to provide symptomatic treatment and supportive care so far all culture negative repeat labs tomorrow will need bronchoscopy on monday continue antibiotics 04/21/19 tomorrow bronchoscopy continue current treatment plan ENT changed tracheostomy tube 04/22/19 today bronchoscopy continue current treatment plan wean off oxygen as tolerated discharge planning based on pulmonary clear 04/23/19 will decide if he needs oxygen medication reviewed as below symptomatic treatment updated to daughter about plan
--- NOTE | 2019-04-23 14:56 | DIS ---
DATE OF ADMISSION: 04/15/2019 DATE OF DISCHARGE: 04/23/2019 PRIMARY CARE PHYSICIAN: [facility] Call admission. DISCHARGE DISPOSITION: Home. PRIMARY DISCHARGE DIAGNOSES: 1. Acute hypoxic respiratory failure. 2. Community-acquired pneumonia, postobstructive. 3. Pleural effusion, status post thoracentesis. 4. Pulmonary nodule versus mass. 5. Mediastinal lymphadenopathy. SECONDARY DISCHARGE DIAGNOSES: History of head and neck cancer with metastasis, PEG tube status, tracheostomy status, anemia of chronic disease. PRIMARY PROCEDURE/OPERATION: Thoracentesis, bronchoscopy, and biopsy. RADIOLOGICAL INVESTIGATION: Chest x-ray on admission showed opacification in the left base, which is consistent with atelectasis and effusion. The patient had repeat several chest x-ray. SIGNIFICANT LABORATORY DATA: WBC 14.3, hemoglobin 9.4, platelet 519. INR 1.1. Sodium 136, potassium 3.6, BUN 10, creatinine 0.56, calcium 8.3, magnesium 1.9. Urinalysis unremarkable. Pleural fluid consistent with exudation. Blood culture negative. Pleural fluid culture negative. DISCHARGE MEDICATIONS: 1. Augmentin 875 mg per tube twice daily for 15 days. 2. Florastor 250 mg per tube daily for 15 days. 3. Duragesic patch 50 mcg every three days. 4. [place] 10 mg one or two tablets q.6 hourly per tube p.r.n. 5. Bumex 1 mg per tube daily. CONTRAINDICATION: None. CODE STATUS: Full code. INPATIENT MDM SR: 1. Oncology Group was following while in hospital. 2. Pulmonary Group was following while in hospital. TEST RESULTS ALL PENDING ON DISCHARGE: Pathology report from lung. DISCHARGE PLAN: Posthospital, the patient will be discharged to home with home oxygen if needed. HOSPITAL COURSE: A 69-year-old male with above-mentioned medical problem, who was admitted by Dr. Peter Cota on April 15, 2019. Please see his H and P for further details. The patient was having hypoxia and hypotension. He has underlying laryngeal cancer with tracheostomy and he has PEG tube status. This patient was found with pneumonia during this admission. He also had lung mass and pulmonary nodule. The patient was treated with IV fluid and broad-spectrum antibiotic therapy. Pulmonary and Critical Group was consulted. Oncology group was also consulted. The patient had pleural effusion and that is why he required thoracentesis and pleural fluid report was consistent with exudations. The patient was meeting sepsis criteria on admission with severe sepsis, with acute organ dysfunction, with respiratory failure. He had postobstructive pneumonia. He also had protein calorie malnutrition and he has chronic pain disorder. On admission, he was appeared dehydrated and he was hydrated with fluid. His tube feeding was continued. During this admission, the patient underwent bronchoscopy and biopsy was obtained. Pathology report is pending. Pulmonary and Critical Care group cleared him for discharge. Oncology will see him as an outpatient basis to decide about treatment plan. I have seen and examined the patient at bedside today. At this point, the patient is waiting for decision to arrange oxygen, and if the patient does qualify for home oxygen, then we will arrange oxygen before discharge. If not, then the patient will be discharged to home. Plan of care discussed with the family member. The patient is seen and examined at bedside today. Please see my progress note from today for further detail. Job ID: [id number]
[2019-04-23] MEDS: Amoxicillin/Potassium Clav 875 MG TAB PO SCH (21:24)
[2019-04-24] MEDS: Hydrocodone-Acetamin 15 ML UDCUP PER TUBE PRN ×4 (05:14→19:42)
[2019-04-24] MEDS: Furosemide 40 MG/4 ML VIAL SLOW IVP SCH ×2 (05:14→14:46)
[2019-04-24 06:31] LABS: Anion Gap 11 mmol/L (10-20); BUN (Urea Nitrogen) 10 mg/dL (8.4-25.7); Calc. Creatinine Clearance 129 mL/min (70-130); Calcium 8.7 mg/dL (7.8-10.44); Carbon Dioxide 29 mmol/L (23-31); Chloride 100 mmol/L (98-107); Estimated GFR-MDRD Greater than 90; Glucose 106 mg/dL (80-115); Potassium 3.7 mmol/L (3.5-5.1); Sodium 136 mmol/L (136-145)
[2019-04-24] MEDS: Diabetic Tussin 200 MG/10 ML UDCUP PER TUBE SCH ×2 (09:18→14:46)
[2019-04-24] MEDS: Amoxicillin/Potassium Clav 875 MG TAB PO SCH (09:18)
[2019-04-24] MEDS: Saccharomyces boulardii 250 MG CAP PER TUBE SCH (09:18)
[2019-04-24 12:07] VITALS: TEMP 98.6
[2019-04-24 17:08] VITALS: BP 105/66
--- NOTE | 2019-04-25 05:55 | PQF ---
[employer] Crystal Reports Winform ViewerROTSARA SIMPSON JOSEPH [id number] [id number] CLINICAL DOCUMENTATION CLARIFICATION FORM: POST DISCHARGE Addendum to original discharge summary date: ____ Late entry note date: __ DATE:04/25/2019 ATTN: GABRIELLE PADILLA Please exercise your independent, professional judgment in responding to the clarification form. Clinical indicators are provided on the bottom of this form for your review Kindly Provide the Body Part of Bronchoscopy Procedure: Bronchoscopic biopsy ____ [ ] Site(s) [ ] Right middle lobe of Lung [ X ] Right middle lobe of Bronchus [ ] Unable to determine [ ] Other procedure: CLINICAL INDICATORS - SIGNS/ SYMPTOMS / LABS Endobronchial biopsy of the RT middle lobe orifice and RT lower lobe - Documented in OP note on 04/25 by GABRIELLE PADILLA There was a endobronchial bulging in the RT middle Lobe - Documented in OP note on 04/25 by GABRIELLE PADILLA The mucosa looked normal but there was near 100% occlusion of RT middle lobe bronchus- Documented in OP note on 04/25 by GABRIELLE PADILLA There was some debris in the RT lower lobe which was also removed and sent for pathology - Documented in OP note on 04/25 by GABRIELLE PADILLA Biopsy forceps could easily pass distal to the lesion, this was biopsied directly- Documented in OP note on 04/25 by GABRIELLE PADILLA [employer] Pulmonary mass and Mediastinal lymphadenopathy - Documented in OP note on 04/25 by GABRIELLE PADILLA Brushing and washing in left upper lobe Lung - Documented in Pathology report TREATMENT No complication during procedure - Documented in OP note on 04/25 by GABRIELLE PADILLA The patient will be recover in the postanesthesia care unit - Documented in OP note on 04/25 by GABRIELLE PADILLA [employer] Crystal Reports Winform Viewer(This form is maintained as a part of the permanent medical record) 2014 [employer], [employer]. All Rights Reserved [email or web address]
--- NOTE | 2019-04-25 09:34 | DIS ---
DATE OF ADMISSION: 04/15/2019 DATE OF DISCHARGE: 04/24/2019 ADDENDUM: The discharge was postponed because oxygen was not arranged. Today, the oxygen was arranged and there were no any other unexpected events overnight and the patient is discharged with vitals signs stable. Job ID: [id number]
[2019-04-26 16:09] LABS: Fungus Stain Final report (.)
[2019-04-30 14:25] LABS: Fluid, pH - Pleural Fld Greater than 7.50 (7.60 - 7.66)
== END 2019-04-24 20:28 | disposition home or self-care (01) | DRG 871 ==
LOC: ERS 16:24 → T4-B 22:28
PROVIDERS: ADMIT Emergency Medicine; ATTEND Emergency Medicine
PROC: 0W9B3ZZ Drainage of Left Pleural Cavity, Percutaneous Approach (ICD-10-PCS; principal; 2019-04-17)
PROC: 0B21XFZ Change Tracheostomy Device in Trachea, External Approach (ICD-10-PCS; 2019-04-20)
PROC: 0BB58ZX Excision of Right Middle Lobe Bronchus, Via Natural or Artificial Opening Endoscopic, Diagnostic (ICD-10-PCS; 2019-04-22)
PROC: 0W9B3ZZ Drainage of Left Pleural Cavity, Percutaneous Approach (ICD-10-PCS; 2019-04-22)
PROC: 0B9G8ZZ Drainage of Left Upper Lung Lobe, Via Natural or Artificial Opening Endoscopic (ICD-10-PCS; 2019-04-22)
PROC: 0B9D8ZX Drainage of Right Middle Lung Lobe, Via Natural or Artificial Opening Endoscopic, Diagnostic (ICD-10-PCS; 2019-04-22)
PROC: 0BDG8ZX Extraction of Left Upper Lung Lobe, Via Natural or Artificial Opening Endoscopic, Diagnostic (ICD-10-PCS; 2019-04-22)
PROC: 07D78ZX Extraction of Thorax Lymphatic, Via Natural or Artificial Opening Endoscopic, Diagnostic (ICD-10-PCS; 2019-04-22)
DX: A41.9 Sepsis, unspecified organism (principal); J96.01 Acute respiratory failure with hypoxia; E44.0 Moderate protein-calorie malnutrition; E87.1 Hypo-osmolality and hyponatremia; J90 Pleural effusion, not elsewhere classified; E87.3 Alkalosis; C34.31 Malignant neoplasm of lower lobe, right bronchus or lung; C79.89 Secondary malignant neoplasm of other specified sites; G89.4 Chronic pain syndrome; R65.20 Severe sepsis without septic shock; Z93.0 Tracheostomy status; C32.9 Malignant neoplasm of larynx, unspecified; Z68.25 Body mass index [BMI] 25.0-25.9, adult; C76.0 Malignant neoplasm of head, face and neck; Z93.1 Gastrostomy status; E86.0 Dehydration; D64.9 Anemia, unspecified; R59.0 Localized enlarged lymph nodes; D63.8 Anemia in other chronic diseases classified elsewhere
CPT/HCPCS: 36415; 71045; 76942; 78815; 80048; 80053; 80202; 81003; 81015; 82150; 82945; 83605; 83615; 83735; 84100; 84157; 84478; 85025; 85060; 85610; 85730; 87040; 87070; 87102; 87116; 87205; 87206; 88112; 88172; 88173; 88177; 88305; 88311; 88312; 88313; 89051; 94640; 96361; 96365; 96367; A9552; J0692; J1940; J1956; J2001; J2270; J2405; J2543; J2704; J3370; J3490; J7050; J7620; S0028

== ENCOUNTER 2019-05-31 11:55 | Inpatient (IN) | payer MEDICARE, OTHER ==
[2019-05-31] MEDS ORDERED: Promethazine HCl 25 MG/ML VIAL ONE ×2 (12:47→16:54)
--- NOTE | 2019-05-31 13:11 | RAD ---
CHEST 1 VIEW PORTABLE: Date: 05/31/2019 HISTORY: Dyspnea. Shortness of breath. Congestion. Bleeding from tracheostomy site. COMPARISON: 04/22/2019. FINDINGS: Left pleural effusion improving from prior study. Right subclavian catheter and injection port. Trach eostomy tube in place. Overall stable appearing right chest. IMPRESSION: Evidence for minimal cardiomegaly with some pleural and parenchymal opacity changes in the left base, but showing improvement from prior study. No significant new process. POS: TPC
[2019-05-31 13:16] LABS: Prothrombin Time 13.1 SEC (12.0-14.7)
[2019-05-31 13:29] LABS: Mean Corpuscular HGB CONC 32.3 g/dL (32.0-36.0); Mean Corpuscular Hemoglobin 28.1 pg (27.0-31.0); Mean Corpuscular Volume 87.1 fL (78.0-98.0); Mean Platelet Volume 9.5 fL (7.4-10.4); Platelet Count 144 thou/uL (130-400); RBC Distribution Width 15.2 % (11.5-14.5); Red Blood Cell (RBC) Count 2.84 mill/uL (4.70-6.10); White Blood Cell (WBC) Count 0.9 thou/uL (4.8-10.8)
[2019-05-31 13:35] LABS: ALT (SGPT) 11 U/L (8-55); AST (SGOT) 16 U/L (5-34); Albumin 3.2 g/dL (3.4-4.8); Alkaline Phosphatase 68 U/L (40-110); Anion Gap 11 mmol/L (10-20); BUN (Urea Nitrogen) 19 mg/dL (8.4-25.7); Bilirubin, Total 0.5 mg/dL (0.2-1.2); Calc. Creatinine Clearance 0 mL/min (70-130); Calcium 8.7 mg/dL (7.8-10.44); Carbon Dioxide 32 mmol/L (23-31); Chloride 97 mmol/L (98-107); Estimated GFR-MDRD 56; Globulin 2.7 g/dL (2.4-3.5); Glucose 108 mg/dL (80-115); Lipase 13 U/L (8-78); Potassium 3.3 mmol/L (3.5-5.1); Protein, Total 5.9 g/dL (5.8-8.1); Sodium 137 mmol/L (136-145)
[2019-05-31] MEDS ORDERED: Metoclopramide HCl 10 MG/2 ML VIAL ONE (13:36)
[2019-05-31] MEDS ORDERED: Cefepime 2 GM VIAL ONE (13:36)
[2019-05-31 13:46] LABS: Bilirubin Negative (Negative); Blood, Urine Negative (Negative); Clarity Clear (Clear); Glucose, Urine (Dipstick) Normal (Negative); Leukocyte Negative Leu/uL (Negative); Nitrite Negative (Negative); Protein, Urine (Dipstick) 30 mg/dL (Neg-Trace); Squamous Epithelial 0-3 HPF (0-3); Urobilinogen Normal mg/dL (Less than 2)
[2019-05-31 13:47] LABS: Bacteria/HPF 1+ HPF (None Seen)
[2019-05-31 13:49] LABS: Band 4 % (5-11); Hypochromia SLIGHT = 6-15 cells (100X) (0-5/hpf); Lymphocytes 88 % (21-51); MDiff Complete? YES; Neutrophil 4 % (42-75); Platelet Morphology Comment Appears Adequate; Polychromasia SLIGHT = 2-3 cells (100X) (0-2/hpf)
[2019-05-31] MEDS ORDERED: Acetaminophen 325 MG TAB PO PRN (14:27)
[2019-05-31] MEDS ORDERED: Ondansetron ODT 4 MG TAB PO PRN (14:27)
[2019-05-31] MEDS ORDERED: HYDROcodone/Acetaminophen 10/325 mg Tablet PER TUBE PRN (14:27)
--- NOTE | 2019-05-31 14:44 | RAD ---
2 VIEWS ABDOMEN: Date: 05/31/2019 PROVIDED CLINICAL HISTORY: Abdominal pain. FINDINGS: The abdominal bowel gas pattern is nonspecific. There is no evidence for pneumoperitoneum. Left basil ar pleural and/or parenchymal opacity is noted. No radiographically apparent urinary tract calculi. T he osseous structures demonstrate no evidence for an acute process. Tubing overlies the left abdomen, not further localized. IMPRESSION: 1. Nonspecific bowel gas pattern. 2. Left basilar pleural and/or parenchymal opacity. POS: TPC
--- NOTE | 2019-05-31 15:25 | ULT ---
ULTRASOUND SCROTUM AND TESTICLES DOPPLER DUPLEX: DATE: 05/31/2019 HISTORY: 69-year-old male with left scrotal pain TECHNIQUE: Grayscale evaluation of intrascrotal contents. Color flow Doppler and spectral waveform analysis of t he testicles. FINDINGS: Right testicle: 3.7 x 2.3 x 2.9 cm. Left testicle: 3.5 x 2.0 x 3.3 cm. Right epididymal head: 1.0 x 0.9 cm. Left epididymal head: 1.6 x 1.0 cm, mildly enlarged. Bilateral testicles have heterogeneous echogenicity, with moderately hypoechoic reticular structures interspersed in a intermediate-moderately hyperechoic background. Etiology is uncertain. One possibility is testicular parenchymal edema. No discrete focal solid testicular mass identified. Within the right testicle, there is a 0.9 cm simple cyst. There are small to moderate-sized bilateral hydroceles. There is symmetrical blood flow to both testicles, possibly increased. Increased vascularity in the inguinal canals bilaterally with change with and without Valsalva. IMPRESSION: 1. Nonspecific heterogeneous echotexture of the bilateral testicles. One possibility is bilateral orc hitis. 2. No torsion. 3. Suspected left epididymitis. 4. Bilateral hydroceles. 5. Probable mild bilateral varicoceles.
[2019-05-31] MEDS ORDERED: Vancomycin 1 GM/200 ML BAG ONE (15:49)
[2019-05-31] MEDS ORDERED: Fentanyl 100 MCG/2 ML VIAL ONE (16:54)
[2019-05-31 19:45] VITALS: BMI 24.6
[2019-05-31] MEDS: Promethazine HCl 25 MG/ML VIAL IM/IV PRN ×2 (19:48→23:32)
--- NOTE | 2019-05-31 21:44 | HP ---
CHIEF COMPLAINT: Fever and short of breath. HISTORY OF PRESENT ILLNESS: A 69-year-old male with a history of head and neck cancer with laryngeal mass, undergoing chemo on last , presenting with a fever of 100.9. He also noted to have some secretions in the trach. He also had some inguinal hernia, compressible but tender to touch. On the ultrasound, no discrete focal solid testicular mass. There is small to moderate bilateral hydrocele, increased vascularity. His labs are significant for neutropenia, platelets 144, and hemoglobin of 8. His potassium is 3.3. The patient will be admitted for further care. Blood cultures have been scheduled. The patient's family at bedside. The patient also has some pressure ulcers in the sacral area. REVIEW OF SYSTEMS: The patient had a fever, but no cough. He has no rash. No chest pain. He has some secretions in his trach, other than that, he did not have any productive cough. No runny nose. He is quite nauseated. No abdominal discomfort. No tingling or numbness in his extremities. Rest of the review of systems are reviewed and are negative. ALLERGIES: HE HAS NO KNOWN DRUG ALLERGIES. PAST MEDICAL HISTORY: 1. Recent diagnosis of laryngeal cancer, had a chemo last . Status post tracheostomy and PEG tube. 2. Hypertension. 3. Chronic pain syndrome. PAST SURGICAL HISTORY: 1. Hernia surgery. 2. Mediport placement. 3. Trach and PEG. MEDICATIONS: He is on, 1. Fentanyl 50 mcg every 3 days. 2. [place] 7.5, 20 mL q.4. 3. Phenergan 25 mg and Zofran 8 mg alternating q.4 hours. SOCIAL HISTORY: Former smoker. Lives with his family of daughter and son-in- law. FAMILY HISTORY: Negative for coronary artery disease. PHYSICAL EXAMINATION: VITAL SIGNS: Not yet documented. NECK: He has a neck mass. He has a trach that is cleaned up. GENERAL: He looks very fragile and not responding much for any questions. Family is helping with the information. CARDIOVASCULAR: Regular rate and rhythm without murmurs, rubs, or gallops. He has a Mediport, the site looks benign. LUNGS: Clear to auscultation. ABDOMEN: Soft, nontender, nondistended. Good bowel sounds. EXTREMITIES: Without any pitting edema or rash. LABORATORY DATA: Sodium is 137 and potassium 3.3. LFTs in the normal range. Lipase 13. Creatinine 1.27. Blood count; WBC 0.9, hemoglobin 8, and platelets are 144,000. IMPRESSION AND PLAN: This is a 69-year-old male with recent head and neck cancer diagnosis and undergoing chemo with Dr. Coleen miranda and last chemo was on , presenting with, 1. Neutropenic fever. 2. Pleural effusion. 3. Trace hemoptysis. 4. Laryngeal mass. 5. Inguinal hernia. 6. Blood cultures have been scheduled. We will continue with vancomycin and cefepime. Due to neutropenic fever and being immunocompromised, we will follow neutropenic precautions and follow the culture results and adjust the antibiotics. 7. Consult Dr. Horne group. 8. Pressure ulcer on the sacrum present on admission. We will provide donut cushion for seating and Wound Care followup. 9. Deep venous thrombosis prophylaxis. SCDs for now. Full code. Job ID: [id number] MTDD
[2019-05-31] MEDS ORDERED: Sodium Chloride 0.45% 1,000 ML IV SCH (22:15)
[2019-05-31] MEDS: Ondansetron PF 4 MG/2 ML Vial IVP PRN (22:22)
[2019-05-31] MEDS: Hydrocodone-Acetamin 15 ML UDCUP PO PRN (23:32)
[2019-06-01] MEDS ORDERED: Fentanyl 100 MCG/2 ML VIAL SLOW IVP SCH (01:30)
[2019-06-01] MEDS: Cefepime 1 GM in Sodium Chloride 0.9% 100 ML IVPB SCH ×2 (01:45→14:01)
[2019-06-01] MEDS: Ondansetron PF 4 MG/2 ML Vial IVP PRN ×3 (04:17→13:53)
[2019-06-01] MEDS: Promethazine HCl 25 MG/ML VIAL IM/IV PRN (05:34)
[2019-06-01] MEDS: Bumetanide 1 MG TAB PER TUBE SCH (08:38)
[2019-06-01] MEDS ORDERED: Promethazine HCl 25 MG in Sodium Chloride 0.9% 50 ML IVPB PRN (11:15)
[2019-06-01] MEDS: fentaNYL 50 mcg/hour Patch TD SCH (11:31)
[2019-06-01] MEDS: Fentanyl 100 MCG/2 ML VIAL SLOW IVP PRN (13:54)
[2019-06-01] MEDS: Vancomycin 1.5 GRAM/300 ML BAG 1.5 GM in Premix Bag 1 BAG IVPB SCH (16:57)
--- NOTE | 2019-06-01 16:58 | PDOC.HOSPP ---
- Subjective Encounter Date: 06/01/19 Encounter Time: 16:30 Subjective: f/u for neutropenic fever in context of laryngeal carcinoma s/p chemotherapy. c/ o persistent N/V with TF's held and + BM today. Tried Zofran/Compazine without relief. Received Phenergan with some improvement. - Objective Vital Signs & Weight: Vital Signs (12 hours) Temp Pulse Resp BP Pulse Ox 06/01/19 16:00 99.1 F 70 18 110/62 99 06/01/19 08:00 95 06/01/19 07:53 99.8 F H 72 16 106/59 L 95 06/01/19 05:05 98.9 F 82 16 125/64 95 Weight Admit Weight 162 lb Weight 162 lb I&O: 05/31/19 06/01/19 06/02/19 06:59 06:59 06:59 Intake Total 300 Balance 300 Result Diagrams: 05/31/19 12:53 05/31/19 12:52 Additional Labs: Accuchecks 05/31/19 20:46 POC Glucose 126 H Microbiology 05/31/19 13:28 Nasal swab Influenza Types A,B Direct EIA - Final 05/31/19 13:57 Venous blood - Left Hand Blood Culture - Preliminary Specimen has been received and culture in progress. No Growth to date. 05/31/19 13:46 Port - Right Subclavian Vein Blood Culture - Preliminary Specimen has been received and culture in progress. No Growth to date. 05/31/19 13:28 Urine voided Urine Culture - Preliminary NO GROWTH AT 12 HOURS Laboratory Tests 04/20/19 04/23/19 05/16/19 05:05 05:20 11:04 WBC 19.8 H 14.3 H Hgb 9.6 L 9.4 L Plt Count 591 H 519 H Potassium 3.0 L B-Natriuretic Peptide 05/22/19 05/31/19 09:13 12:53 WBC Hgb Plt Count Potassium 5.3 H B-Natriuretic Peptide 412.6 H Radiology Reviewed by me: Yes (PCXR - interval improvement in L pleural effusion per Radiology read) Hospitalist ROS - Medication Medications: Active Medications Generic Name Dose Route Start Last Admin Trade Name Freq PRN Reason Stop Dose Admin Hydrocodone Bitart/Acetaminophen 15 ml 05/31/19 16:14 03/13/20 23:32 Hydrocodone-Apap 7.5-325/15 PO 15 ml Q4H PRN Administration Pain Bumetanide 1 mg 06/01/19 09:00 06/01/19 08:38 Bumex PER TUBE Not Given DAILY MATHEW Fentanyl 50 mcg 06/01/19 09:00 06/01/19 11:31 Duragesic TD 50 mcg Q3DAYS MATHEW Administration Fentanyl 25 mcg 06/01/19 10:56 06/01/19 13:54 Sublimaze SLOW IVP 25 mcg Q2H PRN Administration Breakthrough Pain Cefepime HCl 1 gm/ Sodium 100 mls @ 200 mls/hr 06/01/19 01:00 06/01/19 14:01 Chloride IVPB 100 mls 0100,1300 MATHEW Administration Ondansetron HCl 8 mg 05/31/19 15:28 06/01/19 13:53 Zofran IVP 8 mg Q4H PRN Administration Nausea/Vomiting Promethazine HCl 25 mg 05/31/19 15:28 06/01/19 05:34 Phenergan IM/IV 25 mg Q4H PRN Administration Nausea/Vomiting - Exam General Appearance: awake alert, ill appearing Eye: PERRL, anicteric sclera ENT: normocephalic atraumatic ENT - other findings: trach site intact without drainage, edema of neck noted( chronic) Neck: supple, no JVD Heart: RRR, no murmur, no gallops, no rubs, normal peripheral pulses Respiratory: no wheezes Respiratory - other findings: diminished in LLL o/w clear Gastrointestinal: soft, non-tender, non-distended, normal bowel sounds, no palpable masses Gastrointestinal - other findings: PEG in place Extremities: no cyanosis, no clubbing Skin: normal turgor, no lesions Neurological: cranial nerve grossly intact, no new deficit Musculoskeletal: normal tone, generalized weakness Psychiatric: oriented to person, flat affect Hosp A/P (1) Neutropenic fever Code(s): D70.9 - NEUTROPENIA, UNSPECIFIED; R50.81 - FEVER PRESENTING WITH CONDITIONS CLASSIFIED ELSEWHERE Status: Acute Plan: Continue neutropenic precautions, likely due to recent chemotherapy, initial blood/Ucx negative, continue Cefepime/Vancomycin (2) Pleural effusion, left Code(s): J90 - PLEURAL EFFUSION, NOT ELSEWHERE CLASSIFIED Status: Chronic Plan: chronic effusion, recent thoracentesis with predominant lymphocytic fluid (3) Head and neck cancer Code(s): C76.0 - MALIGNANT NEOPLASM OF HEAD, FACE AND NECK Status: Chronic Plan: Continue supportive mgmt, resume tx and chemotherapy as outpt, consult med oncology for any further recommendations (4) Nausea & vomiting Code(s): R11.2 - NAUSEA WITH VOMITING, UNSPECIFIED Status: Acute Plan: Suspect multifactorial, increase Phenergan for infusion, trial Scopolamine patch , hold all TF's, IVF's (5) Anemia of chronic disease Code(s): D63.8 - ANEMIA IN OTHER CHRONIC DISEASES CLASSIFIED ELSEWHERE Status : Chronic Plan: Secondary to chronic disease and chemotherapy, serial monitoring (6) Tracheostomy in place Code(s): Z93.0 - TRACHEOSTOMY STATUS Status: Chronic Plan: Consult Pulmonology for evaluation, local trach care (7) Hypokalemia Code(s): E87.6 - HYPOKALEMIA Status: Acute Plan: KCL supplementation, serial K+ monitoring - Plan plan discussed w/ family, continue antibiotics, PT/OT, manager social media, respiratory therapy, out of bed/ambulate, DVT proph w/SCDs Stable currently Pheneragan 50mg IV infusion q6h prn Start Scopolamine 1.5mg TD patch D5NS with KCL @ 100ml/h Consider PPN if no improvement in N/V and unable to resume TF's Consult Med Oncology/Pulmonology for any further recommendations Continue Cefepime/Vancomycin Code Status: DNAR AM lab: BMP, CBC
[2019-06-01] MEDS: Scopolamine 1.5 mg/72 hour Patch TD SCH (16:59)
[2019-06-01] MEDS: D5 NS w/ 40 mEq KCl 1,000 ML IV SCH (21:46)
[2019-06-02] MEDS: Cefepime 1 GM in Sodium Chloride 0.9% 100 ML IVPB SCH ×2 (00:37→15:25)
[2019-06-02] MEDS: D5 NS w/ 40 mEq KCl 1,000 ML IV SCH ×3 (04:04→20:42)
[2019-06-02 07:07] LABS: Anion Gap 13 mmol/L (10-20); BUN (Urea Nitrogen) 21 mg/dL (8.4-25.7); Calc. Creatinine Clearance 60 mL/min (70-130); Calcium 7.9 mg/dL (7.8-10.44); Carbon Dioxide 27 mmol/L (23-31); Chloride 104 mmol/L (98-107); Estimated GFR-MDRD 59; Glucose 99 mg/dL (80-115); Sodium 141 mmol/L (136-145)
[2019-06-02 07:11] LABS: Potassium 2.9 mmol/L (3.5-5.1)
[2019-06-02] MEDS ORDERED: Potassium Chloride 40 MEQ in Sodium Chloride 0.9% 250 ML 250 ML IVPB SCH (08:15)
[2019-06-02 09:10] LABS: Band 14 % (5-11); Hemoglobin 7.4 g/dL (14.0-18.0); Lymphocytes 44 % (21-51); MDiff Complete? YES; Mean Corpuscular Hemoglobin 28.2 pg (27.0-31.0); Mean Corpuscular Volume 85.3 fL (78.0-98.0); Mean Platelet Volume 9.1 fL (7.4-10.4); Metamyelocyte 2 % (0-0); Monocytes 21 % (0-10); Myelocyte 1 % (0-0); Neutrophil 18 % (42-75); Platelet Count 133 thou/uL (130-400); RBC Distribution Width 15.3 % (11.5-14.5); Red Blood Cell (RBC) Count 2.61 mill/uL (4.70-6.10); Toxic Granulation SLIGHT; White Blood Cell (WBC) Count 4.1 thou/uL (4.8-10.8)
[2019-06-02] MEDS: Bumetanide 1 MG TAB PER TUBE SCH (09:59)
[2019-06-02] MEDS: Scopolamine 1.5 mg/72 hour Patch TD SCH (10:01)
--- NOTE | 2019-06-02 10:57 | PDOC.HOSPP ---
- Subjective Encounter Date: 06/02/19 Encounter Time: 10:50 Subjective: f/u for neutropenic sepsis on Cefepime/Vancomycin with initial blood/ucx negative. Nursing reports no N/V over 14hrs. + BM noted today. - Objective Vital Signs & Weight: Vital Signs (12 hours) Temp Pulse Resp BP Pulse Ox 06/02/19 07:11 99.0 F 75 16 139/62 99 06/02/19 04:00 99.0 F 73 16 121/61 94 L 06/01/19 23:14 99.0 F 63 16 130/64 98 Weight Admit Weight 162 lb Weight 162 lb I&O: 06/01/19 06/02/19 06/03/19 06:59 06:59 06:59 Intake Total 300 1250 Balance 300 1250 Result Diagrams: 06/02/19 06:21 06/02/19 06:21 Additional Labs: Accuchecks 06/02/19 07:50 POC Glucose 109 Microbiology 05/31/19 13:28 Nasal swab Influenza Types A,B Direct EIA - Final 05/31/19 13:57 Venous blood - Left Hand Blood Culture - Preliminary Specimen has been received and culture in progress. No Growth to date. 05/31/19 13:46 Port - Right Subclavian Vein Blood Culture - Preliminary Specimen has been received and culture in progress. No Growth to date. 05/31/19 13:28 Urine voided Urine Culture - Preliminary NO GROWTH AT 12 HOURS Laboratory Tests 04/20/19 04/23/19 05/16/19 05:05 05:20 11:04 WBC 19.8 H 14.3 H Hgb 9.6 L 9.4 L Plt Count 591 H 519 H Band Neuts % (Manual) Lymphocytes % (Manual) Potassium 3.0 L B-Natriuretic Peptide 05/22/19 05/31/19 05/31/19 09:13 12:52 12:53 WBC Hgb Plt Count Band Neuts % (Manual) Lymphocytes % (Manual) Potassium 5.3 H 3.3 L B-Natriuretic Peptide 412.6 H 05/31/19 06/02/19 12:53 06:21 WBC 0.9 L* Hgb 8.0 L Plt Count Band Neuts % (Manual) 4 L 14 H Lymphocytes % (Manual) 88 H 44 Potassium B-Natriuretic Peptide Hospitalist ROS - Medication Medications: Active Medications Generic Name Dose Route Start Last Admin Trade Name Freq PRN Reason Stop Dose Admin Hydrocodone Bitart/Acetaminophen 15 ml 05/31/19 16:14 05/31/19 23:32 Hydrocodone-Apap 7.5-325/15 PO 15 ml Q4H PRN Administration Pain Bumetanide 1 mg 06/01/19 09:00 06/01/19 08:38 Bumex PER TUBE Not Given DAILY MATHEW Fentanyl 50 mcg 06/01/19 09:00 06/01/19 11:31 Duragesic TD 50 mcg Q3DAYS MATHEW Administration Fentanyl 25 mcg 06/01/19 10:56 06/01/19 13:54 Sublimaze SLOW IVP 25 mcg Q2H PRN Administration Breakthrough Pain Cefepime HCl 1 gm/ Sodium 100 mls @ 200 mls/hr 06/01/19 01:00 06/02/19 00:37 Chloride IVPB 100 mls 0100,1300 MATHEW Administration Vancomycin HCl 1.5 gm/ Device 300 mls @ 200 mls/hr 06/01/19 16:00 06/01/19 16 :57 IVPB 300 mls 1600 MATHEW Administration Potassium Chloride/Dextrose/Sod Cl 1,000 mls @ 100 mls/hr 06/01/19 16:30 04:04 D5 Ns W/ 40 Meq Kcl IV Not Given .Q10H MATHEW Promethazine HCl 50 mg/ Sodium 52 mls @ 153 mls/hr 06/01/19 16:29 06/02/19 04 :11 Chloride IVPB 52 mls Q4H PRN Administration Nausea Ondansetron HCl 8 mg 05/31/19 15:28 06/01/19 13:53 Zofran IVP 8 mg Q4H PRN Administration Nausea/Vomiting Promethazine HCl 25 mg 05/31/19 15:28 06/01/19 05:34 Phenergan IM/IV 25 mg Q4H PRN Administration Nausea/Vomiting Scopolamine 1.5 mg 06/01/19 17:00 06/01/19 16:59 Transderm Scop TD 1.5 mg Q3D MATHEW Administration Sodium Chloride 10 ml 06/01/19 21:00 06/01/19 21:46 Flush - Normal Saline IVF 10 ml Q12HR MATHEW Administration - Exam General Appearance: NAD, awake alert Eye: PERRL, anicteric sclera ENT: normocephalic atraumatic Neck: supple, no JVD Neck - other findings: Trach in place, edema/ecchymosis on mass L lateral neck Heart: RRR, no murmur, no gallops, no rubs, normal peripheral pulses Respiratory: normal chest expansion Respiratory - other findings: diminished in L base o/w clear Gastrointestinal: soft, non-tender, non-distended, normal bowel sounds, no palpable masses, no hepatomegaly Gastrointestinal - other findings: PEG in place Extremities: no cyanosis, no clubbing, no edema Skin: normal turgor, no lesions Neurological: cranial nerve grossly intact, no new deficit Musculoskeletal: normal tone, normal strength Psychiatric: A&O x 3 Hosp A/P (1) Neutropenic fever Code(s): D70.9 - NEUTROPENIA, UNSPECIFIED; R50.81 - FEVER PRESENTING WITH CONDITIONS CLASSIFIED ELSEWHERE Status: Acute Plan: Improved, neutropenia resolving, continue current Cefepime/Vancomycin another 24h, serial CBC monitoring (2) Pleural effusion, left Code(s): J90 - PLEURAL EFFUSION, NOT ELSEWHERE CLASSIFIED Status: Chronic Plan: Stable on chest imaging, continue pulmonary support (3) Head and neck cancer Code(s): C76.0 - MALIGNANT NEOPLASM OF HEAD, FACE AND NECK Status: Chronic Plan: Will resume outpt chemotherapy after d/c (4) Nausea & vomiting Code(s): R11.2 - NAUSEA WITH VOMITING, UNSPECIFIED Status: Acute Plan: Resolving, Continue Phenergan IV PRN, continue IVF's (5) Anemia of chronic disease Code(s): D63.8 - ANEMIA IN OTHER CHRONIC DISEASES CLASSIFIED ELSEWHERE Status : Chronic Plan: Secondary to chemotherapy, follow serial H/H, neutropenia improving (6) Tracheostomy in place Code(s): Z93.0 - TRACHEOSTOMY STATUS Status: Chronic Plan: General trach care/suctioning PRN (7) Hypokalemia Code(s): E87.6 - HYPOKALEMIA Status: Acute Plan: KCL supplementation, serial K+ monitoring - Plan continue antibiotics, PT/OT, social media manager, speech therapy, respiratory therapy, out of bed/ambulate, DVT proph w/SCDs Stable currently Pheneragan 50mg IV infusion q6h prn Continue Scopolamine 1.5mg TD patch D5NS with KCL @ 100ml/h Slow resumption of TF's and monitor tolerance Consult Med Oncology/Pulmonology for any further recommendations Continue Cefepime/Vancomycin another 24h Code Status: DNAR AM lab: BMP, CBC
--- NOTE | 2019-06-02 12:03 | CON ---
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 HISTORY OF PRESENT ILLNESS: The patient is a 69-year-old man with a known history of advanced laryngeal carcinoma diagnosed in March of this year. He presented with a large pharyngeal and neck mass associated with left lower lobe atelectasis and possible central obstruction secondary to either a metastatic site or a second primary. He was started on combination chemotherapy, hoh-based and received a second cycle in the first week in May with growth factor support. He has been using a PEG tube for feeding and experienced several days of nausea and vomiting prompting discontinuing of the feedings. He presented to the emergency room with protracted nausea and vomiting refractory to home management and was admitted for further evaluation and treatment. ALLERGIES: NONE. MEDICATIONS: 1. Fentanyl patch. 2. [place]. 3. Phenergan. 4. Zofran. PAST MEDICAL HISTORY: There is a history of hypertension without diabetes mellitus or coronary artery disease. PAST SURGICAL HISTORY: He had hernia surgery, MediPort placement, tracheostomy, and PEG placement. SOCIAL HISTORY: He is a former smoker. His family is quite involved with his care with daughter and son-in-law assisting in his management. FAMILY HISTORY: Negative for hereditary malignancy. REVIEW OF SYSTEMS: He is nonverbal, given the tracheostomy and it is difficult to get a definite review of systems. However, when asked yes or no questions, he denies significant cardiopulmonary, GI, , musculoskeletal, or neurologic complaints except for the nausea, which does seem better. PHYSICAL EXAMINATION: VITAL SIGNS: Temperature 99, pulse is 75 with occasional extrasystole, respirations 16, and blood pressure 139/62. GENERAL: The patient is sitting in a chair. Alert and cooperative. He has a tracheostomy in place with oxygen flowing over a trach collar. HEENT: There is a large cystic lesion in the left neck. Neck is otherwise supple. LUNGS: Clear. CARDIOVASCULAR: There is an occasional extrasystole without murmur or gallop. ABDOMEN: No tenderness, organomegaly, masses, bruits, or ascites. EXTREMITIES: No clubbing, cyanosis, edema. SKIN: Normal. LYMPH: No adenopathy. MUSCULOSKELETAL: No active arthritis. NEUROLOGICAL: No focal findings. Cranial nerves 2 through 12 are grossly intact. LABORATORY DATA: White blood cell count was 0.9 on admission. However, the CBC today shows a white blood cell count of 4.1 with 32% neutrophils and bands. The hemoglobin is 7.4, and platelet count 133,000. Electrolytes show sodium 141, potassium 2.9, chloride 104, and carbon dioxide 27. Creatinine is 1.23 with a BUN of 21. The albumin is 3.2. Liver function studies are normal. Blood and urine cultures are negative and he tested negative for influenza A and B. IMPRESSION: 1. 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 2. Refractory nausea and vomiting, improving. 3. Neutropenia, resolved, with no evidence of definite infection. RECOMMENDATIONS: I discussed the case with the nursing and the hospitalist. Dr. Gómez and I agree that resuming bolus tube feedings cautiously is reasonable in hopes of resuming nutrition and discharge in the next 1-2 days. Thanks very much for allowing me to provide my recommendations. Job ID: [id number]
[2019-06-02 15:50] LABS: Vancomycin, Trough 14.6 ug/mL
[2019-06-02] MEDS: Vancomycin 1.5 GRAM/300 ML BAG 1.5 GM in Premix Bag 1 BAG IVPB SCH (16:00)
[2019-06-02] MEDS: Vancomycin HCl 1.75 GM in Sodium Chloride 0.9% 500 ML IVPB SCH (18:08)
[2019-06-02] MEDS: Hydrocodone-Acetamin 15 ML UDCUP PO PRN (20:41)
[2019-06-02] MEDS: Promethazine HCl 25 MG/ML VIAL IM/IV PRN (20:42)
[2019-06-03] MEDS: Hydrocodone-Acetamin 15 ML UDCUP PO PRN ×2 (00:03→16:22)
[2019-06-03] MEDS: Cefepime 1 GM in Sodium Chloride 0.9% 100 ML IVPB SCH ×2 (00:03→13:35)
[2019-06-03] MEDS: Promethazine HCl 25 MG/ML VIAL IM/IV PRN ×3 (00:03→18:08)
[2019-06-03 05:40] LABS: Anion Gap 9 mmol/L (10-20); BUN (Urea Nitrogen) 19 mg/dL (8.4-25.7); Calc. Creatinine Clearance 67 mL/min (70-130); Calcium 7.6 mg/dL (7.8-10.44); Carbon Dioxide 27 mmol/L (23-31); Chloride 109 mmol/L (98-107); Estimated GFR-MDRD 67; Glucose 96 mg/dL (80-115); Sodium 142 mmol/L (136-145)
[2019-06-03 06:07] LABS: Band 14 % (5-11); Hemoglobin 6.9 g/dL (14.0-18.0); Lymphocytes 34 % (21-51); MDiff Complete? YES; Mean Corpuscular HGB CONC 33.3 g/dL (32.0-36.0); Mean Corpuscular Hemoglobin 28.5 pg (27.0-31.0); Mean Corpuscular Volume 85.8 fL (78.0-98.0); Mean Platelet Volume 8.4 fL (7.4-10.4); Monocytes 9 % (0-10); Neutrophil 43 % (42-75); Platelet Count 148 thou/uL (130-400); RBC Distribution Width 15.5 % (11.5-14.5); Red Blood Cell (RBC) Count 2.42 mill/uL (4.70-6.10); Toxic Granulation SLIGHT; White Blood Cell (WBC) Count 9.7 thou/uL (4.8-10.8)
[2019-06-03] MEDS: Bumetanide 1 MG TAB PER TUBE SCH ×2 (08:34→09:59)
[2019-06-03] MEDS ORDERED: fentaNYL 50 mcg/hour Patch TD SCH (09:00)
[2019-06-03] MEDS: D5 NS w/ 40 mEq KCl 1,000 ML IV SCH ×3 (09:45→19:48)
[2019-06-03] MEDS: Fentanyl 100 MCG/2 ML VIAL SLOW IVP PRN ×4 (10:13→23:11)
--- NOTE | 2019-06-03 12:29 | PDOC.MOPN ---
Interval History: tolerating tf thus far - Vital Signs Vital Signs: Vital Signs (12 hours) Temp Pulse Pulse Resp BP BP Pulse Ox 06/03/19 08:38 83 127/74 06/03/19 08:32 98 06/03/19 08:17 98.4 F 78 18 127/74 98 Pulse Ox 06/03/19 08:38 98 06/03/19 08:32 06/03/19 08:17 Weight Admit Weight 162 lb Weight 162 lb - Physical Exam General: Alert, Oriented x3, No acute distress HEENT: Atraumatic, PERRLA, EOMI, Mucous membr. moist/pink Skin: No rashes, No breakdown, No significant lesion Neurological: Other - Labs Result Diagrams: 06/03/19 04:56 06/03/19 04:56 Lab results: Laboratory Results - last 24 hr 06/03/19 04:56: WBC 9.7, RBC 2.42 L, Hgb 6.9 L, Hct 20.8 L, MCV 85.8, MCH 28.5, MCHC 33.3, RDW 15.5 H, Plt Count 148, MPV 8.4, Neutrophils % (Manual) 43, Band Neuts % (Manual) 14 H, Lymphocytes % (Manual) 34, Monocytes % (Manual) 9, Toxic Granulation SLIGHT 06/03/19 04:56: Sodium 142, Potassium 3.0 L, Chloride 109 H, Carbon Dioxide 27, Anion Gap 9 L, BUN 19, Creatinine 1.09, Estimated GFR (MDRD) 67, Glucose 96, Calcium 7.6 L 06/02/19 15:17: Vancomycin Trough 14.6 Status: lab reviewed by me A/P - Problem (1) Head and neck cancer Current Visit: No Code(s): C76.0 - MALIGNANT NEOPLASM OF HEAD, FACE AND NECK Status: Chronic (2) PEG (percutaneous endoscopic gastrostomy) status Current Visit: No Code(s): Z93.1 - GASTROSTOMY STATUS Status: Chronic - Plan Plan: 1. continue bolus tube feeds 2. transfuse 1 unit PRBC today
[2019-06-03] MEDS: Vancomycin HCl 1.75 GM in Sodium Chloride 0.9% 500 ML IVPB SCH (18:08)
--- NOTE | 2019-06-03 18:39 | PDOC.HOSPP ---
- Subjective Encounter Date: 06/03/19 Encounter Time: 18:40 Subjective: f/u for neutropenic sepsis on Cefepime/Vanc with negative blood/ucx. No fever noted. Tolerating current TF's. Received 1u PRBC's today. - Objective Vital Signs & Weight: Vital Signs (12 hours) Temp Pulse Pulse Pulse Resp BP BP 06/03/19 18:17 97.7 F 61 20 128/59 L 06/03/19 17:58 06/03/19 16:12 97.6 F 69 20 133/63 06/03/19 15:55 97.8 F 79 19 120/66 06/03/19 08:38 83 127/74 06/03/19 08:32 06/03/19 08:17 98.4 F 78 18 BP Pulse Ox Pulse Ox 06/03/19 18:17 06/03/19 17:58 128/63 06/03/19 16:12 99 06/03/19 15:55 100 06/03/19 08:38 98 06/03/19 08:32 98 06/03/19 08:17 127/74 98 Weight Admit Weight 162 lb Weight 162 lb I&O: 06/02/19 06/03/19 06/04/19 06:59 06:59 06:59 Intake Total 6701 589 8341 Balance 5547 464 2477 Result Diagrams: 06/03/19 04:56 06/03/19 04:56 Additional Labs: Microbiology 05/31/19 13:28 Nasal swab Influenza Types A,B Direct EIA - Final 05/31/19 13:57 Venous blood - Left Hand Blood Culture - Preliminary Specimen has been received and culture in progress. No Growth to date. 05/31/19 13:46 Port - Right Subclavian Vein Blood Culture - Preliminary Specimen has been received and culture in progress. No Growth to date. 05/31/19 13:28 Urine voided Urine Culture - Preliminary NO GROWTH AT 12 HOURS Laboratory Tests 04/20/19 04/23/19 05/16/19 05:05 05:20 11:04 WBC 19.8 H 14.3 H Hgb 9.6 L 9.4 L Plt Count 591 H 519 H Band Neuts % (Manual) Lymphocytes % (Manual) Potassium 3.0 L B-Natriuretic Peptide 05/22/19 05/31/19 05/31/19 09:13 12:52 12:53 WBC Hgb Plt Count Band Neuts % (Manual) Lymphocytes % (Manual) Potassium 5.3 H 3.3 L B-Natriuretic Peptide 412.6 H 05/31/19 06/02/19 12:53 06:21 WBC 0.9 L* Hgb 8.0 L Plt Count Band Neuts % (Manual) 4 L 14 H Lymphocytes % (Manual) 88 H 44 Potassium B-Natriuretic Peptide Hospitalist ROS - Medication Medications: Active Medications Generic Name Dose Route Start Last Admin Trade Name Freq PRN Reason Stop Dose Admin Hydrocodone Bitart/Acetaminophen 15 ml 05/31/19 16:14 06/03/19 16:22 Hydrocodone-Apap 7.5-325/15 PO 15 ml Q4H PRN Administration Pain Bumetanide 1 mg 06/01/19 09:00 06/03/19 09:59 Bumex PER TUBE Not Given DAILY MATHEW Fentanyl 50 mcg 06/01/19 09:00 06/01/19 11:31 Duragesic TD 50 mcg Q3DAYS MATHEW Administration Fentanyl 25 mcg 06/01/19 10:56 06/03/19 17:31 Sublimaze SLOW IVP 25 mcg Q2H PRN Administration Breakthrough Pain Cefepime HCl 1 gm/ Sodium 100 mls @ 200 mls/hr 06/01/19 01:00 06/03/19 13:35 Chloride IVPB 100 mls 0100,1300 MATHEW Administration Potassium Chloride/Dextrose/Sod Cl 1,000 mls @ 100 mls/hr 06/01/19 16:30 09:45 D5 Ns W/ 40 Meq Kcl IV 1,000 mls .Q10H MATHEW Administration Promethazine HCl 50 mg/ Sodium 52 mls @ 153 mls/hr 06/01/19 16:29 06/02/19 15 :28 Chloride IVPB 52 mls Q4H PRN Administration Nausea Vancomycin HCl 1.75 gm/ Sodium 500 mls @ 250 mls/hr 06/02/19 17:00 06/03/19 18:08 Chloride IVPB 500 mls 1700 MATHEW Administration Ondansetron HCl 8 mg 05/31/19 15:28 06/01/19 13:53 Zofran IVP 8 mg Q4H PRN Administration Nausea/Vomiting Promethazine HCl 25 mg 05/31/19 15:28 06/03/19 18:08 Phenergan IM/IV 25 mg Q4H PRN Administration Nausea/Vomiting Scopolamine 1.5 mg 06/01/19 17:00 06/02/19 10:01 Transderm Scop TD 1.5 mg Q3D MATHEW Administration Sodium Chloride 10 ml 06/01/19 21:00 06/03/19 08:34 Flush - Normal Saline IVF 10 ml Q12HR MATHWE Administration Sodium Chloride 10 ml 06/01/19 10:44 06/03/19 18:08 Flush - Normal Saline IVF 10 ml PRN PRN Administration Saline Flush - Exam General Appearance: NAD, awake alert Eye: PERRL, anicteric sclera ENT: normocephalic atraumatic, no oropharyngeal lesions Neck: supple, no JVD, no thyromegaly Neck - other findings: Trach in place Heart: RRR, no gallops, no rubs, normal peripheral pulses Heart - other findings: S1, S2 Respiratory: CTAB, no wheezes, no rales, no ronchi Respiratory - other findings: diminished in L base Gastrointestinal: soft, non-tender, non-distended, normal bowel sounds, no palpable masses Gastrointestinal - other findings: + PEG in place Extremities: no cyanosis, no clubbing Skin: normal turgor, no lesions Neurological: cranial nerve grossly intact, no new deficit Musculoskeletal: normal tone, generalized weakness Psychiatric: A&O x 3 Hosp A/P (1) Neutropenic fever Code(s): D70.9 - NEUTROPENIA, UNSPECIFIED; R50.81 - FEVER PRESENTING WITH CONDITIONS CLASSIFIED ELSEWHERE Status: Acute Plan: Continue Cefepime/Vancomycin another 24h then d/c in am (2) Pleural effusion, left Code(s): J90 - PLEURAL EFFUSION, NOT ELSEWHERE CLASSIFIED Status: Chronic Plan: chronic, stable, continue supportive mgmt (3) Head and neck cancer Code(s): C76.0 - MALIGNANT NEOPLASM OF HEAD, FACE AND NECK Status: Chronic Plan: Outpt chemotherapy once cleared by medical oncology service (4) Nausea & vomiting Code(s): R11.2 - NAUSEA WITH VOMITING, UNSPECIFIED Status: Acute Plan: Resolving, tolerating current TF's (5) Anemia of chronic disease Code(s): D63.8 - ANEMIA IN OTHER CHRONIC DISEASES CLASSIFIED ELSEWHERE Status : Chronic Plan: s/p 1u PRBC's today, serial H/H monitoring (6) Tracheostomy in place Code(s): Z93.0 - TRACHEOSTOMY STATUS Status: Chronic Plan: General trach care (7) Hypokalemia Code(s): E87.6 - HYPOKALEMIA Status: Acute Plan: KCL supplementation, serial K+ monitoring - Plan continue antibiotics, PT/OT, nursing home social worker, speech therapy, respiratory therapy, out of bed/ambulate, DVT proph w/SCDs Stable currently Pheneragan PRN Continue Scopolamine 1.5mg TD patch D5NS with KCL @ 50ml/h Slow resumption of TF's and monitor tolerance Consult Med Oncology/Pulmonology for any further recommendations Continue Cefepime/Vancomycin another 24h Code Status: DNAR AM lab: BMP, CBC
[2019-06-03] MEDS: Ondansetron PF 4 MG/2 ML Vial IVP PRN (20:33)
[2019-06-04] MEDS: Cefepime 1 GM in Sodium Chloride 0.9% 100 ML IVPB SCH ×2 (00:06→14:50)
[2019-06-04] MEDS: Ondansetron PF 4 MG/2 ML Vial IVP PRN ×5 (00:42→20:04)
[2019-06-04] MEDS: Hydrocodone-Acetamin 15 ML UDCUP PO PRN ×4 (01:10→20:04)
[2019-06-04] MEDS ORDERED: Promethazine HCl 25 MG in Sodium Chloride 0.9% 50 ML IVPB SCH ×2 (01:45→22:00)
[2019-06-04 04:14] LABS: Hemoglobin 8.1 g/dL (14.0-18.0); Platelet Count 190 thou/uL (130-400)
[2019-06-04 04:39] LABS: Anion Gap 11 mmol/L (10-20); BUN (Urea Nitrogen) 16 mg/dL (8.4-25.7); Calc. Creatinine Clearance 73 mL/min (70-130); Calcium 7.6 mg/dL (7.8-10.44); Carbon Dioxide 27 mmol/L (23-31); Chloride 112 mmol/L (98-107); Estimated GFR-MDRD 73; Glucose 124 mg/dL (80-115); Potassium 3.5 mmol/L (3.5-5.1); Sodium 146 mmol/L (136-145)
[2019-06-04] MEDS: Fentanyl 100 MCG/2 ML VIAL SLOW IVP PRN ×2 (06:19→09:03)
[2019-06-04] MEDS: D5 NS w/ 40 mEq KCl 1,000 ML IV SCH (10:18)
[2019-06-04] MEDS: fentaNYL 50 mcg/hour Patch TD SCH (11:03)
[2019-06-04] MEDS: Bumetanide 1 MG TAB PER TUBE SCH (11:15)
--- NOTE | 2019-06-04 14:30 | PQF ---
DATE: 06-04-19 ATTN: DR. PRESTON ANAYA Please exercise your independent, professional judgment in responding to the clarification form. Clinical indicators are provided on the bottom of this form for your review Diagnosis: NEUTROPENIC SEPSIS Present on Admission (POA): [ x ] Yes [ ] No [ ] Unable to determine For continuity of documentation, please document condition throughout progress notes and discharge summary. Thank You. CLINICAL INDICATORS - SIGNS / SYMPTOMS / LABS/ RESULTS AND LOCATION IN MR: ER DX 05-31-19: NEUTROPENIC FEVER, HEMOPTYSIS, INTRACTABLE NAUSEA AND VOMITING , L INGUINAL HERNIA, PNEUMONIA H&P 05-31-19: NEUTROPENIC FEVER, PLEURAL EFFUSION, TRACE HEMOPTYSIS, LARYNGEAL MASS, BC HAVE BEEN SCHEDULED. WE WILL CONTINUE WITH VANCOMYCIN AND CEFEPIME. PN DR. ANAYA 06-03-19: F/U FOR NEUTROPENIC SEPSIS RISK FACTORS / RESULTS AND LOCATION IN MR: H&P 05-31-19: NEUTROPENIC FEVER, PLEURAL EFFUSION, TRACE HEMOPTYSIS, LARYNGEAL MASS, BC HAVE BEEN SCHEDULED. WE WILL CONTINUE WITH VANCOMYCIN AND CEFEPIME. TEMP: 05-31-19: 99.7 06-01-19: 99.4, 99.8, 99.1, 99.0 TREATMENT / RESULTS AND LOCATION IN MR: ER NOTES 05-31-19: VANCOMYCIN IV, CEFEPIME IV, NS IVF (This form is maintained as a part of the permanent medical record) 2014 [employer] All Rights Reserved PATRIC [email or web address] Office: [phone] [facility]
[2019-06-04] MEDS ORDERED: D5 NS w/ 40 mEq KCl 1,000 ML IV SCH (15:19)
[2019-06-04] MEDS: Scopolamine 1.5 mg/72 hour Patch TD SCH (15:49)
[2019-06-04] MEDS: Dextrose 5% in Water 1,000 ML IV SCH (16:31)
[2019-06-04 16:43] LABS: Vancomycin, Trough 21.4 ug/mL
[2019-06-04] MEDS ORDERED: guaiFENesin ER 600 MG TAB PO SCH (16:45)
--- NOTE | 2019-06-04 17:18 | CON ---
DATE OF CONSULTATION: 06/04/2019 SERVICE: Pulmonary Medicine. REASON FOR CONSULT: Malfunctioning tracheostomy. HISTORY OF PRESENT ILLNESS: The patient is a 69-year-old white male with past medical history significant for head and neck cancer. He requires a tracheostomy to be in place. There is not very much air that is able to travel superiorly, even under the best of circumstances with a smaller tracheostomy. As such, he is basically dependent on the tracheostomy. He presented to the hospital with a neutropenic fever. All of this seems to be improving, but as his white blood cell count has started to recover, he is bringing up a copious amounts of very slimy/thick/tenacious sputum. With these changes, his tracheostomy is frequently being plugged up. He likes for his inner cannula be removed frequently. Previously, our staff was only cleaning this thing once or twice on a daily basis. For the most part, the only purposely that I serve was a little bit of education. From my perspective, we need to clean this inner cannula twice daily, but we can also do it as needed during the daytime. I gave the patient some instructions on how to accomplish this. He has a bottle brush device for the inner cannula and with the assistance of nursing, he should be able to keep this thing clean through time. He understands that if he takes the inner cannula out, the actual tracheostomy itself will get plugged up once he coughs the sputum into it and will have a more challenging time cleaning that device. As such, inner cannula was absolutely required. He has a tracheostomy in place with a balloon at the end of it. He triply has no issues with comfort of this device. The irritating thing is that sometimes he feels a rattle and that is when the inner cannula gets plugged up. Otherwise, there has been no interval change to his condition, he is actually doing quite well. PAST MEDICAL HISTORY: 1. Head and neck cancer, status post tracheostomy and PEG tube placement. 2. Hypertension. 3. Chronic pain. PAST SURGICAL HISTORY: 1. Herniorrhaphy. 2. MediPort placement. 3. Tracheostomy. 4. PEG tube placement. FAMILY HISTORY: Noncontributory. SOCIAL HISTORY: He used to smoke and had a greater than 40 pack-year history of smoking. Denies any alcohol or illicit drugs. He has no exposure to chemicals, dust, asbestos, or tuberculosis. ALLERGIES: NO KNOWN DRUG ALLERGIES. MEDICATIONS: List of his inpatient medications was reviewed. No specific updates made at this time. REVIEW OF SYSTEMS: General, head, ears, eyes, nose, throat, cardiovascular, respiratory, GI, , musculoskeletal, neurologic, and skin are negative except as mentioned in the HPI. PHYSICAL EXAMINATION: VITAL SIGNS: Afebrile, pulse 88, blood pressure 129/60, respirations 20, and saturation 94% on 5 L via T-collar. GENERAL: The patient is awake and alert, in no apparent distress. LUNGS: Good air entry bilaterally. Rhonchi are present. There is not much of a prolonged expiratory phase or wheezing. HEART: Normal rate. Regular. ABDOMEN: Soft, nontender, and nondistended. Bowel sounds are positive. MUSCULOSKELETAL: No cyanosis or clubbing. There is no pitting in the bilateral lower extremities. LABORATORY DATA: Hemoglobin 8.1. WBC 9.7 and platelets are 148,000. All three cell lines are rebounding. INR 1.0. Sodium 146. Basic metabolic profile is otherwise unremarkable. Calcium 7.6. Potassium 3.5 is improving. Urinalysis is unremarkable, vancomycin trough 14.6. Blood cultures x2, urine culture, and influenza A and B are negative to-date. IMAGIN. Testicular ultrasound demonstrates nonspecific heterogeneous echotexture of the bilateral testes. Bilateral orchitis is a possibility. There is no torsion. Left epididymitis is suspected with bilateral hydroceles. There is likely bilateral varicoceles as well. 2. Abdominal x-ray demonstrates nonspecific bowel gas pattern in left pleural and/or parenchymal opacity. 3. Chest x-ray demonstrates left lower lobe opacification. This shows improvement compared to prior; however. ASSESSMENT: 1. Acute hypoxic respiratory failure. 2. Postobstructive process. 3. History of pleural effusion, status post thoracentesis demonstrating a very weak exudate with negative pathology. 4. Head and neck cancer, status post tracheostomy and percutaneous endoscopic gastrostomy tube placement. 5. Neutropenic fever, resolving. DISCUSSION AND PLAN: The patient is doing fine from respiratory standpoint. I have educated the patient himself, as well as our nursing staff. He will do trach care twice daily and on an as-needed basis. Tracheostomy will be replaced every three months, but he is not due for exchange. When we put the next tracheostomy in, he can likely get an 8-0 Shiley, but cuffless on this occasion. He actually prefers the large tracheostomy, which will be continued through time. I will be available this patient during this hospital stay by invitation. At this time; however, he has no further requirements for inpatient Pulmonary/Critical Care opinion, and I will sign off. Please call with additional questions or concerns. 70 minutes have been devoted to this patient in various activities. I personally reviewed all imaging studies and laboratory data noted within this document. For fifty percent of this time, I was interacting with the patient at the bedside or coordinating care with the care team. For the remainder of the time I was immediately available to the patient in the hospital unit. Job ID: [id number] MTDD
--- NOTE | 2019-06-04 17:31 | PDOC.HOSPP ---
- Subjective Encounter Date: 06/04/19 Encounter Time: 17:25 Subjective: f/u for neutropenic sepsis now resolving. Intermittent nausea and pain. TF's resuming with variable tolerance. - Objective Vital Signs & Weight: Vital Signs (12 hours) Temp Pulse Resp BP Pulse Ox 06/04/19 08:00 98.0 F 88 20 129/60 94 L Weight Admit Weight 162 lb Weight 162 lb I&O: 06/03/19 06/04/19 06/05/19 06:59 06:59 06:59 Intake Total 270 4116 Output Total 300 Balance 270 3816 Result Diagrams: 06/04/19 03:44 06/04/19 03:44 Additional Labs: Microbiology 05/31/19 13:28 Nasal swab Influenza Types A,B Direct EIA - Final 05/31/19 13:57 Venous blood - Left Hand Blood Culture - Preliminary Specimen has been received and culture in progress. No Growth to date. 05/31/19 13:46 Port - Right Subclavian Vein Blood Culture - Preliminary Specimen has been received and culture in progress. No Growth to date. 05/31/19 13:28 Urine voided Urine Culture - Preliminary NO GROWTH AT 12 HOURS Laboratory Tests 04/20/19 04/23/19 05/16/19 05:05 05:20 11:04 WBC 19.8 H 14.3 H Hgb 9.6 L 9.4 L Plt Count 591 H 519 H Band Neuts % (Manual) Lymphocytes % (Manual) Potassium 3.0 L B-Natriuretic Peptide 05/22/19 05/31/19 05/31/19 09:13 12:52 12:53 WBC Hgb Plt Count Band Neuts % (Manual) Lymphocytes % (Manual) Potassium 5.3 H 3.3 L B-Natriuretic Peptide 412.6 H 05/31/19 06/02/19 12:53 06:21 WBC 0.9 L* Hgb 8.0 L Plt Count Band Neuts % (Manual) 4 L 14 H Lymphocytes % (Manual) 88 H 44 Potassium B-Natriuretic Peptide Hospitalist ROS - Medication Medications: Active Medications Generic Name Dose Route Start Last Admin Trade Name Freq PRN Reason Stop Dose Admin Hydrocodone Bitart/Acetaminophen 15 ml 05/31/19 16:14 06/04/19 15:07 Hydrocodone-Apap 7.5-325/15 PO 15 ml Q4H PRN Administration Pain Bumetanide 1 mg 06/01/19 09:00 06/04/19 11:15 Bumex PER TUBE 1 mg DAILY MATHEW Administration Fentanyl 25 mcg 06/01/19 10:56 06/04/19 09:03 Sublimaze SLOW IVP 25 mcg Q2H PRN Administration Breakthrough Pain Fentanyl 50 mcg 06/04/19 09:00 06/04/19 11:03 Duragesic TD 50 mcg Q3DAYS MATHEW Administration Cefepime HCl 1 gm/ Sodium 100 mls @ 200 mls/hr 06/01/19 01:00 06/04/19 14:50 Chloride IVPB 100 mls 0100,1300 MATHEW Administration Dextrose/Water 1,000 mls @ 50 mls/hr 06/04/19 15:30 06/04/19 16:31 D5w IV 1,000 mls .Q20H MATHEW Administration Ondansetron HCl 8 mg 05/31/19 15:28 06/04/19 16:33 Zofran IVP 8 mg Q4H PRN Administration Nausea/Vomiting Potassium Chloride 40 meq 06/04/19 08:00 06/04/19 16:32 Klor-Con PER TUBE 40 meq BID-WM MATHEW Administration Scopolamine 1.5 mg 06/01/19 17:00 06/04/19 15:49 Transderm Scop TD 1.5 mg Q3D MATHEW Administration Sodium Chloride 10 ml 06/01/19 21:00 06/04/19 10:09 Flush - Normal Saline IVF Not Given Q12HR MATHEW Sodium Chloride 10 ml 06/01/19 10:44 06/03/19 18:08 Flush - Normal Saline IVF 10 ml PRN PRN Administration Saline Flush - Exam General Appearance: NAD, awake alert Eye: PERRL, anicteric sclera ENT: normocephalic atraumatic, no oropharyngeal lesions Neck: supple, no JVD, no thyromegaly Neck - other findings: Trach in place Heart: RRR, no gallops, no rubs, normal peripheral pulses Heart - other findings: S1, S2 Respiratory: CTAB, no wheezes, no rales, no ronchi Gastrointestinal: soft, non-tender, non-distended, normal bowel sounds, no palpable masses Gastrointestinal - other findings: PEG in place Extremities: no cyanosis, no clubbing, no edema Skin: normal turgor, no lesions Neurological: cranial nerve grossly intact, no new deficit Musculoskeletal: normal tone, generalized weakness Psychiatric: oriented to person, oriented to place Hosp A/P (1) Neutropenic fever Code(s): D70.9 - NEUTROPENIA, UNSPECIFIED; R50.81 - FEVER PRESENTING WITH CONDITIONS CLASSIFIED ELSEWHERE Status: Acute Plan: Resolving, continue Cefepime, d/c Vancomycin (2) Pleural effusion, left Code(s): J90 - PLEURAL EFFUSION, NOT ELSEWHERE CLASSIFIED Status: Chronic Plan: Stable currently (3) Head and neck cancer Code(s): C76.0 - MALIGNANT NEOPLASM OF HEAD, FACE AND NECK Status: Chronic Plan: Outpt chemotherapy (4) Nausea & vomiting Code(s): R11.2 - NAUSEA WITH VOMITING, UNSPECIFIED Status: Acute Plan: Zofran PRN (5) Anemia of chronic disease Code(s): D63.8 - ANEMIA IN OTHER CHRONIC DISEASES CLASSIFIED ELSEWHERE Status : Chronic (6) Tracheostomy in place Code(s): Z93.0 - TRACHEOSTOMY STATUS Status: Chronic Plan: Appreciate Pulmonology assistance, general trach care (7) Hypokalemia Code(s): E87.6 - HYPOKALEMIA Status: Acute - Plan plan discussed w/ family, continue antibiotics, PT/OT, oncology social worker, speech therapy, respiratory therapy, out of bed/ambulate, DVT proph w/SCDs Stable currently Pheneragan PRN Continue Scopolamine 1.5mg TD patch D5W @ 50ml/h Slow resumption of TF's and monitor tolerance Consult Med Oncology/Pulmonology for any further recommendations Continue Cefepime, d/c Vancomycin Code Status: DNAR AM lab: BMP, CBC
[2019-06-04] MEDS: Vancomycin 1.5 GRAM/300 ML BAG 1.5 GM in Premix Bag 1 BAG IVPB SCH (17:32)
[2019-06-04] MEDS: guaiFENesin ER 600 MG TAB PO SCH (20:04)
[2019-06-05] MEDS: fentaNYL 50 mcg/hour Patch TD SCH (01:04)
[2019-06-05] MEDS: Cefepime 1 GM in Sodium Chloride 0.9% 100 ML IVPB SCH ×2 (01:28→13:43)
[2019-06-05] MEDS: Ondansetron PF 4 MG/2 ML Vial IVP PRN ×2 (06:11→10:15)
[2019-06-05] MEDS: guaiFENesin ER 600 MG TAB PO SCH ×2 (09:56→22:48)
[2019-06-05] MEDS: Bumetanide 1 MG TAB PER TUBE SCH (09:57)
--- NOTE | 2019-06-05 10:16 | PQF ---
DATE: 06-04-19 ATTN: DR. PRESTON ANAYA Please exercise your independent, professional judgment in responding to the clarification form. Clinical indicators are provided on the bottom of this form for your review Please check appropriate box(s) to clarify if the following diagnosis has been ruled in or ruled out: PNEUMONIA [ ] Ruled in diagnosis [ ] Continue to treat [ ] Resolved [ ] Ruled out diagnosis [ x ] Other diagnosis _Pleural effusion [ ] Unable to determine In addition, please specify: Present on Admission (POA): [ x ] Yes [ ] No [ ] Unable to determine For continuity of documentation, please document condition throughout progress notes and discharge summary. Thank You. CLINICAL INDICATORS - SIGNS / SYMPTOMS / LABS / RESULTS AND LOCATION IN MR: ER DX 05-31-19: NEUTROPENIC FEVER, HEMOPTYSIS, INTRACTABLE NAUSEA AND VOMITING , L INGUINAL HERNIA, PNUEMONIA H&P 05-31-19: NEUTROPENIC FEVER, PLEURAL EFFUSION, TRACE HEMOPTYSIS, LARYNGEAL MASS WBC: 05-31-19: 0.9 06-02-19: 4.1 06-03-19: 9.7 RISK FACTORS / RESULTS AND LOCATION IN MR: H&P 05-31-19: FEVER OF 100.9, SECRETIONS IN THE TRACH, NEUTROPENIC FEVER, PLEURAL EFFUSIONS, TRACE HEMOPTYSIS TREATMENTS / RESULTS AND LOCATION IN MR: ER DX 05-31-19: VANCOMYCIN IV , CEFEPIME IV, NS IVF PULMONARY CONSULT 06-01-19 (This form is maintained as a part of the permanent medical record) 2014 [employer]. All Rights Reserved MTDD
[2019-06-05] MEDS: Fentanyl 100 MCG/2 ML VIAL SLOW IVP PRN (13:43)
[2019-06-05] MEDS: Dextrose 5% in Water 1,000 ML IV SCH (13:45)
--- NOTE | 2019-06-05 18:00 | PDOC.HOSPP ---
- Subjective Encounter Date: 06/05/19 Encounter Time: 18:00 Subjective: f/u for neutropenic sepsis on Cefepime/Vancomycin. Overall improved and remains on O2 by trach collar. - Objective Vital Signs & Weight: Vital Signs (12 hours) Temp Pulse Resp BP Pulse Ox 06/05/19 08:34 98.2 F 60 18 123/70 99 06/05/19 07:23 99 Weight Admit Weight 162 lb Weight 162 lb I&O: 06/04/19 06/05/19 06/06/19 06:59 06:59 06:59 Intake Total 4116 810 Output Total 300 Balance 3816 810 Result Diagrams: 06/04/19 03:44 06/04/19 03:44 Additional Labs: Microbiology 05/31/19 13:28 Nasal swab Influenza Types A,B Direct EIA - Final 05/31/19 13:57 Venous blood - Left Hand Blood Culture - Preliminary Specimen has been received and culture in progress. No Growth to date. 05/31/19 13:46 Port - Right Subclavian Vein Blood Culture - Preliminary Specimen has been received and culture in progress. No Growth to date. 05/31/19 13:28 Urine voided Urine Culture - Preliminary NO GROWTH AT 12 HOURS Laboratory Tests 04/20/19 04/23/19 05/16/19 05:05 05:20 11:04 WBC 19.8 H 14.3 H Hgb 9.6 L 9.4 L Plt Count 591 H 519 H Band Neuts % (Manual) Lymphocytes % (Manual) Potassium 3.0 L B-Natriuretic Peptide 05/22/19 05/31/19 05/31/19 09:13 12:52 12:53 WBC Hgb Plt Count Band Neuts % (Manual) Lymphocytes % (Manual) Potassium 5.3 H 3.3 L B-Natriuretic Peptide 412.6 H 05/31/19 06/02/19 12:53 06:21 WBC 0.9 L* Hgb 8.0 L Plt Count Band Neuts % (Manual) 4 L 14 H Lymphocytes % (Manual) 88 H 44 Potassium B-Natriuretic Peptide Hospitalist ROS - Medication Medications: Active Medications Generic Name Dose Route Start Last Admin Trade Name Freq PRN Reason Stop Dose Admin Hydrocodone Bitart/Acetaminophen 15 ml 05/31/19 16:14 06/04/19 20:04 Hydrocodone-Apap 7.5-325/15 PO 15 ml Q4H PRN Administration Pain Bumetanide 1 mg 06/01/19 09:00 06/05/19 09:57 Bumex PER TUBE 1 mg DAILY MATHEW Administration Fentanyl 25 mcg 06/01/19 10:56 06/05/19 13:43 Sublimaze SLOW IVP 25 mcg Q2H PRN Administration Breakthrough Pain Fentanyl 50 mcg 06/04/19 09:00 06/04/19 11:03 Duragesic TD 50 mcg Q3DAYS MATHEW Administration Guaifenesin 1,200 mg 06/04/19 21:00 06/05/19 09:56 Mucinex PO 1,200 mg Q12HR MATHEW Administration Cefepime HCl 1 gm/ Sodium 100 mls @ 200 mls/hr 06/01/19 01:00 06/05/19 13:43 Chloride IVPB 100 mls 0100,1300 MATHEW Administration Dextrose/Water 1,000 mls @ 50 mls/hr 06/04/19 15:30 06/05/19 13:45 D5w IV 1,000 mls .Q20H MATHEW Administration Vancomycin HCl 1.5 gm/ Device 300 mls @ 200 mls/hr 06/04/19 17:00 06/04/19 17 :32 IVPB 300 mls 1700 MATHEW Administration Ondansetron HCl 8 mg 05/31/19 15:28 06/05/19 06:11 Zofran IVP 8 mg Q4H PRN Administration Nausea/Vomiting Potassium Chloride 40 meq 06/04/19 08:00 06/05/19 09:56 Klor-Con PER TUBE 40 meq BID-WM MATHEW Administration Scopolamine 1.5 mg 06/01/19 17:00 06/04/19 15:49 Transderm Scop TD 1.5 mg Q3D MATHEW Administration Sodium Chloride 10 ml 06/01/19 21:00 06/05/19 09:57 Flush - Normal Saline IVF 10 ml Q12HR MATHEW Administration Sodium Chloride 10 ml 06/01/19 10:44 06/03/19 18:08 Flush - Normal Saline IVF 10 ml PRN PRN Administration Saline Flush - Exam General Appearance: NAD, awake alert Eye: PERRL, anicteric sclera ENT: normocephalic atraumatic, no oropharyngeal lesions ENT - other findings: trach with clear mucus externally Neck: supple, symmetric, no JVD, no thyromegaly Heart: RRR, no gallops, no rubs, normal peripheral pulses Respiratory - other findings: diminishe in left base Gastrointestinal: soft, non-tender, non-distended, normal bowel sounds, no palpable masses Gastrointestinal - other findings: PEG in place Extremities: no cyanosis, no clubbing, no edema Skin: normal turgor, no lesions Neurological: cranial nerve grossly intact, no new deficit Musculoskeletal: normal tone, generalized weakness Psychiatric: oriented to person, oriented to place, oriented to time Hosp A/P (1) Neutropenic fever Code(s): D70.9 - NEUTROPENIA, UNSPECIFIED; R50.81 - FEVER PRESENTING WITH CONDITIONS CLASSIFIED ELSEWHERE Status: Acute Plan: Resolving, d/c IV abx in 24h (2) Pleural effusion, left Code(s): J90 - PLEURAL EFFUSION, NOT ELSEWHERE CLASSIFIED Status: Chronic (3) Head and neck cancer Code(s): C76.0 - MALIGNANT NEOPLASM OF HEAD, FACE AND NECK Status: Chronic (4) Nausea & vomiting Code(s): R11.2 - NAUSEA WITH VOMITING, UNSPECIFIED Status: Acute Plan: Intermittent, trial Reglan 10mg PT QID, start low-volume continuous TF's (5) Anemia of chronic disease Code(s): D63.8 - ANEMIA IN OTHER CHRONIC DISEASES CLASSIFIED ELSEWHERE Status : Chronic (6) Tracheostomy in place Code(s): Z93.0 - TRACHEOSTOMY STATUS Status: Chronic Plan: General trach care (7) Hypokalemia Code(s): E87.6 - HYPOKALEMIA Status: Acute - Plan continue antibiotics, PT/OT, social work associate, speech therapy, respiratory therapy, DVT proph w/SCDs Stable currently Pheneragan PRN Continue Scopolamine 1.5mg TD patch D5W @ 50ml/h Slow resumption of TF's continuously per dietitian recommendations Start Reglan Consult Med Oncology/Pulmonology for any further recommendations Continue Cefepime, d/c Vancomycin Code Status: DNAR AM lab: BMP, CBC
[2019-06-05] MEDS: Vancomycin 1.5 GRAM/300 ML BAG 1.5 GM in Premix Bag 1 BAG IVPB SCH (18:25)
[2019-06-05] MEDS ORDERED: Metoclopramide 10 MG/10 ML UDCUP PER TUBE SCH (19:00)
[2019-06-05] MEDS: Metoclopramide 10 MG/10 ML UDCUP PER TUBE SCH (22:48)
[2019-06-05] MEDS: Hydrocodone-Acetamin 15 ML UDCUP PO PRN (23:31)
[2019-06-06] MEDS: Cefepime 1 GM in Sodium Chloride 0.9% 100 ML IVPB SCH ×2 (01:02→13:13)
[2019-06-06] MEDS: Hydrocodone-Acetamin 15 ML UDCUP PO PRN ×5 (03:33→21:39)
[2019-06-06] MEDS: Dextrose 5% in Water 1,000 ML IV SCH (08:25)
[2019-06-06] MEDS: Metoclopramide 10 MG/10 ML UDCUP PER TUBE SCH ×4 (08:29→21:16)
[2019-06-06] MEDS: guaiFENesin ER 600 MG TAB PO SCH (08:29)
[2019-06-06] MEDS: Bumetanide 1 MG TAB PER TUBE SCH (08:30)
--- NOTE | 2019-06-06 13:12 | PDOC.HOSPP ---
- Subjective Encounter Date: 06/06/19 Encounter Time: 13:10 Subjective: f/u for neutropenic sepsis on Cefepime. Remains afebrile. Tolerating TF's @ 65ml /h currently. - Objective Vital Signs & Weight: Vital Signs (12 hours) Temp Pulse Resp BP Pulse Ox 06/06/19 08:36 98 06/06/19 08:00 98 06/06/19 07:47 97.9 F 82 18 124/64 98 Weight Admit Weight 162 lb Weight 162 lb I&O: 06/05/19 06/06/19 06/07/19 06:59 06:59 06:59 Intake Total 810 2130 2780 Output Total 350 Balance 810 2130 2430 Result Diagrams: 06/04/19 03:44 06/04/19 03:44 Additional Labs: Microbiology 05/31/19 13:28 Nasal swab Influenza Types A,B Direct EIA - Final 05/31/19 13:57 Venous blood - Left Hand Blood Culture - Preliminary Specimen has been received and culture in progress. No Growth to date. 05/31/19 13:46 Port - Right Subclavian Vein Blood Culture - Preliminary Specimen has been received and culture in progress. No Growth to date. 05/31/19 13:28 Urine voided Urine Culture - Preliminary NO GROWTH AT 12 HOURS Laboratory Tests 04/20/19 04/23/19 05/16/19 05:05 05:20 11:04 WBC 19.8 H 14.3 H Hgb 9.6 L 9.4 L Plt Count 591 H 519 H Band Neuts % (Manual) Lymphocytes % (Manual) Potassium 3.0 L B-Natriuretic Peptide 05/22/19 05/31/19 05/31/19 09:13 12:52 12:53 WBC Hgb Plt Count Band Neuts % (Manual) Lymphocytes % (Manual) Potassium 5.3 H 3.3 L B-Natriuretic Peptide 412.6 H 05/31/19 06/02/19 12:53 06:21 WBC 0.9 L* Hgb 8.0 L Plt Count Band Neuts % (Manual) 4 L 14 H Lymphocytes % (Manual) 88 H 44 Potassium B-Natriuretic Peptide Hospitalist ROS - Medication Medications: Active Medications Generic Name Dose Route Start Last Admin Trade Name Freq PRN Reason Stop Dose Admin Hydrocodone Bitart/Acetaminophen 15 ml 05/31/19 16:14 06/06/19 09:21 Hydrocodone-Apap 7.5-325/15 PO 15 ml Q4H PRN Administration Pain Bumetanide 1 mg 06/01/19 09:00 06/06/19 08:30 Bumex PER TUBE Not Given DAILY MATHEW Fentanyl 25 mcg 06/01/19 10:56 06/05/19 13:43 Sublimaze SLOW IVP 25 mcg Q2H PRN Administration Breakthrough Pain Fentanyl 50 mcg 06/04/19 09:00 06/04/19 11:03 Duragesic TD 50 mcg Q3DAYS MATHEW Administration Cefepime HCl 1 gm/ Sodium 100 mls @ 200 mls/hr 06/01/19 01:00 06/06/19 01:02 Chloride IVPB 100 mls 0100,1300 MATHEW Administration Dextrose/Water 1,000 mls @ 50 mls/hr 06/04/19 15:30 06/06/19 08:25 D5w IV 1,000 mls .Q20H MATHEW Administration Metoclopramide HCl 10 mg 06/05/19 21:00 06/06/19 11:52 Reglan PER TUBE 10 mg ACHS MATHEW Administration Ondansetron HCl 8 mg 05/31/19 15:28 06/05/19 10:15 Zofran IVP 8 mg Q4H PRN Administration Nausea/Vomiting Potassium Chloride 40 meq 06/04/19 08:00 06/06/19 08:30 Klor-Con PER TUBE 40 meq BID-WM MATHEW Administration Scopolamine 1.5 mg 06/01/19 17:00 06/04/19 15:49 Transderm Scop TD 1.5 mg Q3D MATHEW Administration Sodium Chloride 10 ml 06/01/19 21:00 06/06/19 08:30 Flush - Normal Saline IVF 10 ml Q12HR MATHEW Administration Sodium Chloride 10 ml 06/01/19 10:44 06/03/19 18:08 Flush - Normal Saline IVF 10 ml PRN PRN Administration Saline Flush - Exam General Appearance: NAD, awake alert Eye: PERRL, anicteric sclera ENT: normocephalic atraumatic, no oropharyngeal lesions Neck: supple, no JVD, no thyromegaly Neck - other findings: Trach in place with clear mucus Heart: RRR, no gallops, no rubs, normal peripheral pulses Heart - other findings: S1, S2 Respiratory - other findings: diminished in L base o/w clear Gastrointestinal: soft, non-tender, non-distended, normal bowel sounds, no palpable masses Gastrointestinal - other findings: PEG in place Extremities: no cyanosis, no clubbing, no edema Skin: normal turgor, no lesions Neurological: no new deficit Musculoskeletal: normal tone, generalized weakness Psychiatric: oriented to person, oriented to place, oriented to time Hosp A/P (1) Neutropenic fever Code(s): D70.9 - NEUTROPENIA, UNSPECIFIED; R50.81 - FEVER PRESENTING WITH CONDITIONS CLASSIFIED ELSEWHERE Status: Acute Plan: Continue Cefepime another 24h then convert to PT option (2) Pleural effusion, left Code(s): J90 - PLEURAL EFFUSION, NOT ELSEWHERE CLASSIFIED Status: Chronic (3) Head and neck cancer Code(s): C76.0 - MALIGNANT NEOPLASM OF HEAD, FACE AND NECK Status: Chronic (4) Nausea & vomiting Code(s): R11.2 - NAUSEA WITH VOMITING, UNSPECIFIED Status: Acute Plan: Improved, continue Reglan trial, Scopolamine patch (5) Anemia of chronic disease Code(s): D63.8 - ANEMIA IN OTHER CHRONIC DISEASES CLASSIFIED ELSEWHERE Status : Chronic (6) Tracheostomy in place Code(s): Z93.0 - TRACHEOSTOMY STATUS Status: Chronic (7) Hypokalemia Code(s): E87.6 - HYPOKALEMIA Status: Acute - Plan continue antibiotics, PT/OT, social worker delinquency prevention, speech therapy, respiratory therapy, out of bed/ambulate, DVT proph w/SCDs Stable currently Pheneragan PRN Continue Scopolamine 1.5mg TD patch Saline lock IVF's Slow resumption of TF's continuously per dietitian recommendations Start Reglan Consult Med Oncology/Pulmonology for any further recommendations Continue Cefepime, d/c Vancomycin Code Status: DNAR AM lab: BMP, CBC Likely home in 24h
[2019-06-06] MEDS: Diabetic Tussin 200 MG/10 ML UDCUP PO SCH ×2 (15:39→21:17)
[2019-06-06] MEDS: Ondansetron PF 4 MG/2 ML Vial IVP PRN (18:21)
[2019-06-07] MEDS: Cefepime 1 GM in Sodium Chloride 0.9% 100 ML IVPB SCH ×2 (01:17→14:02)
[2019-06-07] MEDS: fentaNYL 50 mcg/hour Patch TD SCH (08:43)
[2019-06-07] MEDS: Metoclopramide 10 MG/10 ML UDCUP PER TUBE SCH ×4 (08:50→20:49)
[2019-06-07] MEDS: Ondansetron PF 4 MG/2 ML Vial IVP PRN ×2 (08:52→14:19)
[2019-06-07] MEDS: Bumetanide 1 MG TAB PER TUBE SCH (08:52)
[2019-06-07] MEDS: Diabetic Tussin 200 MG/10 ML UDCUP PO SCH ×3 (10:18→20:49)
[2019-06-07] MEDS: Dextrose 5% in Water 1,000 ML IV SCH ×2 (10:19→10:20)
--- NOTE | 2019-06-07 12:58 | DIS ---
DATE OF ADMISSION: 05/31/2019 DATE OF DISCHARGE: 06/07/2019 DISCHARGE DIAGNOSES: 1. Neutropenic sepsis, resolving. 2. Left pleural effusion without identified organism. 3. Head and neck carcinoma. 4. Nausea and vomiting, intermittent. 5. Anemia of chronic disease and secondary to chemotherapy. 6. Hypokalemia, improved. 7. Tracheostomy, chronic. CONSULTATIONS: 1. Dr. Andino with Medical Oncology Service. 2. Dr. Archer with Pulmonology Critical Care Service. PERTINENT LABORATORY AND X-RAY FINDINGS: Potassium ranged between 2.0 to 3.5. Lactic acid level 1.2. LFTs within normal limits. BNP 413. Lipase 13. CBC showed a white blood cell count ranging between 0.9 to 9.7, hemoglobin ranging between 6.9 to 8.0. Blood cultures x2 dated 05/31/2019 showed no growth at 5 days. Urine culture dated 05/31/2019 showed less than 10,000 colonies of mixed skin charli. Influenza A and B antigen dated 05/31/2019 negative. Portable chest x-ray dated 05/31/2019 showed left basilar pleural effusion. Abdominal radiographs dated 05/31/2019 showed nonspecific bowel gas pattern. Left basilar pleural opacity. Testicular ultrasound dated 05/31/2019 showed nonspecific heterogeneous echotexture of bilateral testicles. No torsion. Suspected left epididymitis. Bilateral hydroceles noted. HOSPITAL COURSE: The patient was admitted to the Medical Oncology Unit after presenting with fever and shortness of breath in the context of laryngeal carcinoma, undergoing chemotherapy. The patient initially was treated for neutropenic sepsis and placed on broad-spectrum IV antibiotic therapy with vancomycin and cefepime. The patient was placed on neutropenic precautions and blood cultures were negative x2. The patient continued on vancomycin and cefepime through the remainder of the hospital course, however, all cultures were negative. The patient was evaluated by Medical Oncology Service with recommendations for general supportive management. The patient's hospital course was complicated due to recurrent nausea and emesis of unclear etiology. No specific evidence for bowel obstruction was noted and patient was titrated on tube feeds initially receiving bolus feeds, which were not tolerated transitioning to continuous tube feeds after consultation with the dietitian service. The patient was also titrated on antiemetics with the addition of scopolamine and Reglan with overall improvement and nausea and emesis. The patient did remain clinically stable, receiving general supportive management, tracheostomy care and PEG tube care. I have examined the patient at the time of discharge and discussed followup instructions. The patient verbalized understanding and agreement ready for discharge on 06/07/2019. DISCHARGE MEDICATIONS: 1. Fentanyl patch 50 mcg transdermally q.72 hours. 2. [place] 7.5/325 mg per 15 mL and 20 mL per PEG tube q.4 hours p.r.n. 3. Zofran ODT 8 mg per PEG tube q.4-6 hours p.r.n. 4. Phenergan 10 mg per PEG tube q.8 hours p.r.n. 5. Bumex 1 mg per PEG tube daily. 6. Guaifenesin syrup 100 mg per 5 mL, 20 mL p.o. q.4 hours p.r.n. 7. Reglan 10 mg per peg tube before meals and at bedtime. 8. Scopolamine patch 1.5 mg transdermally q.72 hours. FOLLOWUP: The patient may follow up with his medical oncologist, Dr. Jossue Andino within the next 5-7 days. CONDITION ON DISCHARGE: Fair. ACTIVITY: Ad-celsa. DIET: Jevity 1.5 with continuous rate ranging between 30 mL to 65 mL/hour depending on nausea and tolerance. CODE STATUS: Do not attempt resuscitation. DISPOSITION: To home with [facility], 06/07/2019. TIME SPENT: Total time preparing and coordinating discharge, 40 minutes. Job ID: [id number]
[2019-06-07] MEDS: Hydrocodone-Acetamin 15 ML UDCUP PO PRN ×3 (14:10→22:32)
--- NOTE | 2019-06-07 18:08 | PDOC.HOSPP ---
- Subjective Encounter Date: 06/07/19 Encounter Time: 12:00 Subjective: f/u for neutropenic sepsis on Cefepime/Vancomycin now clinically improved. Some intermittent nausea but overall tolerating continuous TF's with Jevity 1.5. - Objective Vital Signs & Weight: Vital Signs (12 hours) Temp Pulse Resp BP Pulse Ox 06/07/19 08:19 98.1 F 89 18 130/61 98 06/07/19 08:00 98 Weight Admit Weight 162 lb Weight 162 lb I&O: 06/06/19 06/07/19 06/08/19 06:59 06:59 06:59 Intake Total 2130 2930 30 Output Total 350 Balance 2130 2580 30 Result Diagrams: 06/04/19 03:44 06/04/19 03:44 Additional Labs: Microbiology 05/31/19 13:28 Nasal swab Influenza Types A,B Direct EIA - Final 05/31/19 13:57 Venous blood - Left Hand Blood Culture - Preliminary Specimen has been received and culture in progress. No Growth to date. 05/31/19 13:46 Port - Right Subclavian Vein Blood Culture - Preliminary Specimen has been received and culture in progress. No Growth to date. 05/31/19 13:28 Urine voided Urine Culture - Preliminary NO GROWTH AT 12 HOURS Laboratory Tests 04/20/19 04/23/19 05/16/19 05:05 05:20 11:04 WBC 19.8 H 14.3 H Hgb 9.6 L 9.4 L Plt Count 591 H 519 H Band Neuts % (Manual) Lymphocytes % (Manual) Potassium 3.0 L B-Natriuretic Peptide 05/22/19 05/31/19 05/31/19 09:13 12:52 12:53 WBC Hgb Plt Count Band Neuts % (Manual) Lymphocytes % (Manual) Potassium 5.3 H 3.3 L B-Natriuretic Peptide 412.6 H 05/31/19 06/02/19 12:53 06:21 WBC 0.9 L* Hgb 8.0 L Plt Count Band Neuts % (Manual) 4 L 14 H Lymphocytes % (Manual) 88 H 44 Potassium B-Natriuretic Peptide Hospitalist ROS - Medication Medications: Active Medications Generic Name Dose Route Start Last Admin Trade Name Freq PRN Reason Stop Dose Admin Hydrocodone Bitart/Acetaminophen 15 ml 05/31/19 16:14 06/07/19 14:10 Hydrocodone-Apap 7.5-325/15 PO 15 ml Q4H PRN Administration Pain Bumetanide 1 mg 06/01/19 09:00 06/07/19 08:52 Bumex PER TUBE Not Given DAILY MATHEW Fentanyl 25 mcg 06/01/19 10:56 06/05/19 13:43 Sublimaze SLOW IVP 25 mcg Q2H PRN Administration Breakthrough Pain Fentanyl 50 mcg 06/04/19 09:00 06/07/19 08:43 Duragesic TD 50 mcg Q3DAYS MATHEW Administration Guaifenesin 400 mg 06/06/19 15:00 06/07/19 14:02 Robitussin Sf PO 400 mg TID MATHEW Administration Cefepime HCl 1 gm/ Sodium 100 mls @ 200 mls/hr 06/01/19 01:00 06/07/19 14:02 Chloride IVPB 100 mls 0100,1300 MATHEW Administration Dextrose/Water 1,000 mls @ 50 mls/hr 06/04/19 15:30 06/07/19 10:20 D5w IV 1,000 mls .Q20H MATHEW Administration Metoclopramide HCl 10 mg 06/05/19 21:00 06/07/19 14:02 Reglan PER TUBE 10 mg ACHS MATHEW Administration Ondansetron HCl 8 mg 05/31/19 15:28 06/07/19 14:19 Zofran IVP 8 mg Q4H PRN Administration Nausea/Vomiting Potassium Chloride 20 meq 06/07/19 08:00 06/07/19 08:50 Klor-Con PER TUBE 20 meq BID-WM MATHEW Administration Potassium Chloride 20 meq 06/07/19 09:00 06/07/19 10:21 Klor-Con PER TUBE Not Given 0900,1800 MATHEW Scopolamine 1.5 mg 06/01/19 17:00 06/04/19 15:49 Transderm Scop TD 1.5 mg Q3D MATHEW Administration Sodium Chloride 10 ml 06/01/19 21:00 06/07/19 10:21 Flush - Normal Saline IVF 10 ml Q12HR MATHEW Administration Sodium Chloride 10 ml 06/01/19 10:44 06/03/19 18:08 Flush - Normal Saline IVF 10 ml PRN PRN Administration Saline Flush - Exam General Appearance: NAD, awake alert Eye: PERRL, anicteric sclera ENT: normocephalic atraumatic, no oropharyngeal lesions Neck: supple, no JVD, no thyromegaly Neck - other findings: large tumor on L neck, trach in place Heart: RRR, no gallops, no rubs, normal peripheral pulses Heart - other findings: S1, S2 Respiratory: no tachypnea Respiratory - other findings: diminished in L base o/w clear Gastrointestinal: soft, non-tender, non-distended, normal bowel sounds, no palpable masses Gastrointestinal - other findings: PEG in place Extremities: no cyanosis, no clubbing, no edema Skin: normal turgor, no lesions Neurological: cranial nerve grossly intact, no new deficit Neurological - other findings: aphasic due to trach Musculoskeletal: normal tone, generalized weakness Psychiatric: oriented to person, oriented to place, oriented to time Hosp A/P (1) Neutropenic fever Code(s): D70.9 - NEUTROPENIA, UNSPECIFIED; R50.81 - FEVER PRESENTING WITH CONDITIONS CLASSIFIED ELSEWHERE Status: Acute Plan: Resolving, d/c antibiotic coverage (2) Pleural effusion, left Code(s): J90 - PLEURAL EFFUSION, NOT ELSEWHERE CLASSIFIED Status: Chronic Plan: Supportive mgmt (3) Head and neck cancer Code(s): C76.0 - MALIGNANT NEOPLASM OF HEAD, FACE AND NECK Status: Chronic Plan: Outpt f/u with medical oncology for resumption of chemotherapy (4) Nausea & vomiting Code(s): R11.2 - NAUSEA WITH VOMITING, UNSPECIFIED Status: Acute Plan: Intermittent, continue Reglan/Scopolamine, titrate TF's to clinical response (5) Anemia of chronic disease Code(s): D63.8 - ANEMIA IN OTHER CHRONIC DISEASES CLASSIFIED ELSEWHERE Status : Chronic (6) Tracheostomy in place Code(s): Z93.0 - TRACHEOSTOMY STATUS Status: Chronic Plan: General trach care, PRN suctioning (7) Hypokalemia Code(s): E87.6 - HYPOKALEMIA Status: Acute - Plan plan discussed w/ family, continue antibiotics, PT/OT, social media senior associate, speech therapy, respiratory therapy, DVT proph w/SCDs Stable currently Pheneragan PRN Continue Scopolamine 1.5mg TD patch Saline lock IVF's Slow resumption of TF's continuously per dietitian recommendations Start Reglan Consult Med Oncology/Pulmonology for any further recommendations Continue Cefepime, d/c Vancomycin Code Status: DNAR Home in am 06/08/19
--- NOTE | 2019-06-07 18:14 | PDOC.EVN ---
Event Note - Event Note Event Note: D/C was held as feeding pump was unable to be secured until 06/08/19. GI evaluated PEG site and adjusted the bumper, o/w no obstruction or malfunction detected. Plan for home in am 06/08/19.
[2019-06-07] MEDS: Scopolamine 1.5 mg/72 hour Patch TD SCH (18:28)
[2019-06-08] MEDS: Cefepime 1 GM in Sodium Chloride 0.9% 100 ML IVPB SCH ×2 (01:17→13:30)
[2019-06-08] MEDS: Dextrose 5% in Water 1,000 ML IV SCH ×3 (01:26→20:02)
[2019-06-08] MEDS: Hydrocodone-Acetamin 15 ML UDCUP PO PRN ×4 (02:38→20:01)
[2019-06-08] MEDS: Bumetanide 1 MG TAB PER TUBE SCH (08:44)
[2019-06-08] MEDS: Metoclopramide 10 MG/10 ML UDCUP PER TUBE SCH ×4 (08:49→20:01)
[2019-06-08] MEDS: Ondansetron PF 4 MG/2 ML Vial IVP PRN ×2 (08:49→15:43)
[2019-06-08] MEDS: Diabetic Tussin 200 MG/10 ML UDCUP PO SCH ×3 (08:53→20:01)
[2019-06-08] MEDS: Fentanyl 100 MCG/2 ML VIAL SLOW IVP PRN (09:48)
[2019-06-08] MEDS ORDERED: Promethazine HCl 25 MG in Sodium Chloride 0.9% 50 ML IVPB PRN (12:48)
--- NOTE | 2019-06-08 12:50 | PDOC.HOSPP ---
- Subjective Encounter Date: 06/08/19 Encounter Time: 12:47 Subjective: Mr. Charles was seen today in follow-up of chronic nausea. He notes continued nausea. No new complaints. - Objective Vital Signs & Weight: Vital Signs (12 hours) Temp Pulse Resp BP 06/08/19 08:00 97.8 F 67 16 126/76 Weight Admit Weight 162 lb Weight 162 lb I&O: 06/07/19 06/08/19 06/09/19 06:59 06:59 06:59 Intake Total 2930 1310 30 Output Total 350 900 Balance 2580 410 30 Result Diagrams: 06/04/19 03:44 06/04/19 03:44 Hospitalist ROS - Medication Medications: Active Medications Generic Name Dose Route Start Last Admin Trade Name Freq PRN Reason Stop Dose Admin Hydrocodone Bitart/Acetaminophen 15 ml 05/31/19 16:14 06/08/19 08:49 Hydrocodone-Apap 7.5-325/15 PO 15 ml Q4H PRN Administration Pain Bumetanide 1 mg 06/01/19 09:00 06/08/19 08:44 Bumex PER TUBE Not Given DAILY MATHEW Fentanyl 25 mcg 06/01/19 10:56 06/08/19 09:48 Sublimaze SLOW IVP 25 mcg Q2H PRN Administration Breakthrough Pain Fentanyl 50 mcg 06/04/19 09:00 06/07/19 08:43 Duragesic TD 50 mcg Q3DAYS MATHEW Administration Guaifenesin 400 mg 06/06/19 15:00 06/08/19 08:53 Robitussin Sf PO 400 mg TID MATHEW Administration Cefepime HCl 1 gm/ Sodium 100 mls @ 200 mls/hr 06/01/19 01:00 06/08/19 01:17 Chloride IVPB 100 mls 0100,1300 MATHEW Administration Dextrose/Water 1,000 mls @ 50 mls/hr 06/04/19 15:30 06/08/19 01:26 D5w IV 1,000 mls .Q20H MATHEW Administration Metoclopramide HCl 10 mg 06/05/19 21:00 06/08/19 08:49 Reglan PER TUBE 10 mg ACHS MATHEW Administration Ondansetron HCl 8 mg 05/31/19 15:28 06/08/19 08:49 Zofran IVP 8 mg Q4H PRN Administration Nausea/Vomiting Potassium Chloride 20 meq 06/07/19 08:00 06/08/19 08:44 Klor-Con PER TUBE Not Given BID-WM MATHEW Potassium Chloride 20 meq 06/07/19 09:00 06/08/19 08:44 Klor-Con PER TUBE Not Given 0900,1800 MATHEW Scopolamine 1.5 mg 06/01/19 17:00 06/07/19 18:28 Transderm Scop TD 1.5 mg Q3D MATHEW Administration Sodium Chloride 10 ml 06/01/19 21:00 06/08/19 08:50 Flush - Normal Saline IVF 10 ml Q12HR MATHEW Administration Sodium Chloride 10 ml 06/01/19 10:44 06/03/19 18:08 Flush - Normal Saline IVF 10 ml PRN PRN Administration Saline Flush - Exam Eye: PERRL ENT - other findings: + large mass on the left submandibular region Heart: RRR, no murmur, no gallops, no rubs, normal peripheral pulses Respiratory: CTAB, no wheezes, no rales, no ronchi, normal chest expansion Gastrointestinal: soft, non-tender, non-distended, normal bowel sounds Extremities: 1+ LE edema (!= lower extremity edema) Hosp A/P (1) Nausea & vomiting Code(s): R11.2 - NAUSEA WITH VOMITING, UNSPECIFIED Status: Acute (2) Neutropenic fever Code(s): D70.9 - NEUTROPENIA, UNSPECIFIED; R50.81 - FEVER PRESENTING WITH CONDITIONS CLASSIFIED ELSEWHERE Status: Acute (3) PEG (percutaneous endoscopic gastrostomy) status Code(s): Z93.1 - GASTROSTOMY STATUS Status: Chronic - Plan * Neutropenic fever- improved- can transition to a oral antibiotic at discharge * Nausea- will give a trail of phenergan, and consider Ativan as well. * [facility]ware website was accessed. No results were found * Hopefully home today
[2019-06-08] MEDS: Promethazine 25 MG TAB PO PRN (13:29)
--- NOTE | 2019-06-08 13:39 | EKG ---
Test Reason : Blood Pressure : / mmHG Vent. Rate : 076 BPM Atrial Rate : 070 BPM P-R Int : 000 ms QRS Dur : 090 ms QT Int : 420 ms P-R-T Axes : 000 034 011 degrees QTc Int : 472 ms Atrial fibrillation Low voltage QRS Abnormal ECG Confirmed by SYLVIA GEORGE M.D. ([id number]), newspaper editor ADELSO LEMA ([id number]) on 06/08/2019 1:39:10 PM Referred By: Confirmed By:SYLVIA GEORGE M.D.
[2019-06-09] MEDS: Cefepime 1 GM in Sodium Chloride 0.9% 100 ML IVPB SCH ×2 (01:06→12:40)
[2019-06-09] MEDS: Hydrocodone-Acetamin 15 ML UDCUP PO PRN ×4 (01:06→21:27)
[2019-06-09] MEDS: Metoclopramide 10 MG/10 ML UDCUP PER TUBE SCH ×4 (07:30→21:27)
[2019-06-09] MEDS: Bumetanide 1 MG TAB PER TUBE SCH (08:31)
[2019-06-09] MEDS: Diabetic Tussin 200 MG/10 ML UDCUP PO SCH ×3 (09:00→21:27)
[2019-06-09] MEDS: Promethazine 25 MG TAB PO PRN ×2 (13:14→21:28)
[2019-06-09 13:37] LABS: Anion Gap 10 mmol/L (10-20); BUN (Urea Nitrogen) 13 mg/dL (8.4-25.7); Calc. Creatinine Clearance 90 mL/min (70-130); Calcium 8.4 mg/dL (7.8-10.44); Carbon Dioxide 25 mmol/L (23-31); Chloride 109 mmol/L (98-107); Estimated GFR-MDRD Greater than 90; Glucose 102 mg/dL (80-115); Potassium 3.3 mmol/L (3.5-5.1); Sodium 141 mmol/L (136-145)
[2019-06-09 14:17] LABS: Anisocytosis SLIGHT = 6-15 cells (100X) (0-5/hpf); Band 28 % (5-11); Hemoglobin 9.2 g/dL (14.0-18.0); Lymphocytes 5 % (21-51); MDiff Complete? YES; Mean Corpuscular HGB CONC 32.1 g/dL (32.0-36.0); Mean Corpuscular Hemoglobin 28.5 pg (27.0-31.0); Mean Corpuscular Volume 88.8 fL (78.0-98.0); Mean Platelet Volume 7.7 fL (7.4-10.4); Monocytes 5 % (0-10); Neutrophil 60 % (42-75); Platelet Count 355 thou/uL (130-400); Platelet Morphology Comment Appears Adequate; Polychromasia SLIGHT = 2-3 cells (100X) (0-2/hpf); RBC Distribution Width 17.3 % (11.5-14.5); Reactive Lymphocytes 2 % (0-10); Red Blood Cell (RBC) Count 3.21 mill/uL (4.70-6.10); Tear Drops SLIGHT = 2-5 cells (100X) (0-1/hpf); Toxic Granulation SLIGHT; White Blood Cell (WBC) Count 26.6 thou/uL (4.8-10.8)
--- NOTE | 2019-06-09 15:54 | PDOC.HOSPP ---
- Subjective Encounter Date: 06/09/19 Encounter Time: 15:54 Subjective: Mr. Charles was seen today in follow-up of neutropenic fever. He says he still feels weak, and is having nausea off and on. He would like to stay one more night in the hospital. - Objective Vital Signs & Weight: Vital Signs (12 hours) Pulse Ox 06/09/19 08:00 97 06/09/19 07:10 95 Weight Admit Weight 162 lb Weight 162 lb I&O: 06/08/19 06/09/19 06/10/19 06:59 06:59 06:59 Intake Total 1310 2200 60 Output Total 900 1300 Balance 410 900 60 Result Diagrams: 06/09/19 13:02 06/09/19 13:02 Hospitalist ROS - Medication Medications: Active Medications Generic Name Dose Route Start Last Admin Trade Name Freq PRN Reason Stop Dose Admin Hydrocodone Bitart/Acetaminophen 15 ml 05/31/19 16:14 06/09/19 14:46 Hydrocodone-Apap 7.5-325/15 PO 15 ml Q4H PRN Administration Pain Bumetanide 1 mg 06/01/19 09:00 06/09/19 08:31 Bumex PER TUBE 1 mg DAILY MATHEW Administration Fentanyl 25 mcg 06/01/19 10:56 06/08/19 09:48 Sublimaze SLOW IVP 25 mcg Q2H PRN Administration Breakthrough Pain Fentanyl 50 mcg 06/04/19 09:00 06/07/19 08:43 Duragesic TD 50 mcg Q3DAYS MATHEW Administration Guaifenesin 400 mg 06/06/19 15:00 06/09/19 14:46 Robitussin Sf PO 400 mg TID MATHEW Administration Cefepime HCl 1 gm/ Sodium 100 mls @ 200 mls/hr 06/01/19 01:00 06/09/19 12:40 Chloride IVPB 100 mls 0100,1300 MATHEW Administration Dextrose/Water 1,000 mls @ 50 mls/hr 06/04/19 15:30 06/08/19 20:02 D5w IV 1,000 mls .Q20H MATHEW Administration Metoclopramide HCl 10 mg 06/05/19 21:00 06/09/19 12:45 Reglan PER TUBE Not Given ACHS MATHEW Ondansetron HCl 8 mg 05/31/19 15:28 06/08/19 15:43 Zofran IVP 8 mg Q4H PRN Administration Nausea/Vomiting Potassium Chloride 20 meq 06/07/19 08:00 06/09/19 08:31 Klor-Con PER TUBE 20 meq BID-WM MATHEW Administration Potassium Chloride 20 meq 06/07/19 09:00 06/09/19 09:00 Klor-Con PER TUBE Not Given 0900,1800 MATHEW Promethazine HCl 25 mg 06/08/19 12:48 06/09/19 13:14 Phenergan PO 25 mg Q6H PRN Administration Nausea/Vomiting Scopolamine 1.5 mg 06/01/19 17:00 06/07/19 18:28 Transderm Scop TD 1.5 mg Q3D MATHEW Administration Sodium Chloride 10 ml 06/01/19 21:00 06/09/19 09:00 Flush - Normal Saline IVF Not Given Q12HR MATHEW Sodium Chloride 10 ml 06/01/19 10:44 06/03/19 18:08 Flush - Normal Saline IVF 10 ml PRN PRN Administration Saline Flush - Exam Eye: PERRL, anicteric sclera Heart: RRR, no murmur, no gallops, no rubs, normal peripheral pulses Respiratory: CTAB, no rales, no ronchi, normal chest expansion Gastrointestinal: soft, non-tender, non-distended, normal bowel sounds, no palpable masses, no hepatomegaly Extremities: no cyanosis, 1+ LE edema (trace pedal edema) Hosp A/P (1) Nausea & vomiting Code(s): R11.2 - NAUSEA WITH VOMITING, UNSPECIFIED Status: Acute (2) Neutropenic fever Code(s): D70.9 - NEUTROPENIA, UNSPECIFIED; R50.81 - FEVER PRESENTING WITH CONDITIONS CLASSIFIED ELSEWHERE Status: Acute (3) PEG (percutaneous endoscopic gastrostomy) status Code(s): Z93.1 - GASTROSTOMY STATUS Status: Chronic - Plan * Neutropenic fever- improved- his WBC count is elevated- likely the result of filgrastim * Nausea-continue symptom relief * Will monitor in the hospital one more day * Hopefully home tomorrow
[2019-06-10] MEDS: Cefepime 1 GM in Sodium Chloride 0.9% 100 ML IVPB SCH ×2 (01:43→12:16)
[2019-06-10] MEDS: Ondansetron PF 4 MG/2 ML Vial IVP PRN ×2 (01:56→12:25)
[2019-06-10] MEDS: Hydrocodone-Acetamin 15 ML UDCUP PO PRN ×3 (01:59→12:25)
[2019-06-10] MEDS: Dextrose 5% in Water 1,000 ML IV SCH (05:37)
[2019-06-10] MEDS: Promethazine 25 MG TAB PO PRN (05:38)
[2019-06-10 08:07] VITALS: BP 113/56; TEMP 98.5
[2019-06-10] MEDS: Metoclopramide 10 MG/10 ML UDCUP PER TUBE SCH ×3 (08:30→16:42)
[2019-06-10] MEDS: Diabetic Tussin 200 MG/10 ML UDCUP PO SCH ×2 (09:00→15:00)
[2019-06-10] MEDS: fentaNYL 50 mcg/hour Patch TD SCH (12:08)
[2019-06-10] MEDS: Scopolamine 1.5 mg/72 hour Patch TD SCH (12:12)
[2019-06-10] MEDS: Bumetanide 1 MG TAB PER TUBE SCH (12:19)
[2019-06-10] MEDS ORDERED: HYDROcodone/Acetaminophen 10/325 mg Tablet PO PRN (17:42)
[2019-06-10] MEDS ORDERED: Hydrocodone-Acetamin 15 ML UDCUP PO SCH (21:00)
--- NOTE | 2019-06-11 11:24 | PQF ---
SARA VILLELA CHARLES DO [id number] CLINICAL DOCUMENTATION CLARIFICATION FORM: POST DISCHARGE Addendum to original discharge summary date: ____ Late entry note date: __ DATE:06/11/2019 ATTN: TIMBO ANAYA DO Please exercise your independent, professional judgment in responding to the clarification form. Clinical indicators are provided on the bottom of this form for your review Please check appropriate box(s) to clarify if the following diagnosis has been ruled in or ruled out: Acute hypoxic respiratory failure [ x ] Ruled in diagnosis [ x ] Continue to treat [ ] Resolved [ ] Ruled out diagnosis [ ] Cannot rule out diagnosis [ ] Other diagnosis [ ] Unable to determine In addition, please specify: Present on Admission (POA): [ x ] Yes [ ] No [ ] Unable to determine For continuity of documentation, please document condition throughout progress notes and discharge summary. Thank You. CLINICAL INDICATORS - SIGNS / SYMPTOMS / LABS Acute hypoxic respiratory failure-Consultation report on 06/03 by Tyson Magallanes MD Good air entry bilaterally . Rhonchi are present. There is not much of a prolonged expiratory phase or wheezing -Consultation report on 06/03 by Tyson Magallanes MD Postobstructive process-Consultation report on 06/03 by Tyson Magallanes MD Neutropenic sepsis ,resolving-Documented in discharge summary on06/06 by Timbo Anaya DO Left pleural effusion-Documented in discharge summary on06/06 by Timbo Anaya DO O2 sat by pulse oximetry -88L -Documented in Clinical panels RISK FACTORS Postobstructive process-Consultation report on 06/03 by Tyson Magallanes MD Neutropenic sepsis ,resolving-Documented in discharge summary on06/06 by Timbo Anaya DO TREATMENTS Oxygen delivery method -Trach collar ,Oxygen flow rate 6 L-Documented in Clinical panels The patient is doing fine from respiratory standpoit -Consultation report on by Tyson Magallanes MD Tracheostomy will be replaced every three months , BUT he is not due for exchanges -Consultation report on 06/03 by Tyson Magallanes MD [employer] Winform Viewer (This form is maintained as a part of the permanent medical record) 2014 [employer] All Rights Reserved [email or web address]
== END 2019-06-10 18:10 | disposition home health service (06) | DRG 871 ==
LOC: ERS 11:55 → ONC 14:42
PROVIDERS: ADMIT Internal Medicine; ATTEND Internal Medicine
DX: A41.9 Sepsis, unspecified organism (principal); J96.01 Acute respiratory failure with hypoxia; J90 Pleural effusion, not elsewhere classified; R04.2 Hemoptysis; D64.81 Anemia due to antineoplastic chemotherapy; C76.0 Malignant neoplasm of head, face and neck; E87.6 Hypokalemia; Z93.0 Tracheostomy status; Z93.3 Colostomy status; Z66 Do not resuscitate; Z87.891 Personal history of nicotine dependence; C32.9 Malignant neoplasm of larynx, unspecified; G89.4 Chronic pain syndrome; K40.90 Unilateral inguinal hernia, without obstruction or gangrene, not specified as recurrent
CPT/HCPCS: 36415; 36416; 36430; 71045; 74019; 76870; 80048; 80053; 80202; 81003; 81015; 83605; 83690; 83880; 84484; 85007; 85014; 85018; 85025; 85027; 85049; 85610; 86850; 86900; 86901; 87040; 87086; 87804; 93005; 93976; 94640; 96361; 96365; 96366; 96367; 96375; 96376; J0692; J1642; J2405; J2550; J2765; J3010; J3370; J3480; J3490; J7050; P9016; Q0169

== ENCOUNTER 2019-07-11 14:35 | Day surgery (SDC) | payer MEDICARE, OTHER ==
[2019-07-11] MEDS ORDERED: diphenhydrAMINE 25 MG CAP PO SCH (15:30)
[2019-07-11] MEDS ORDERED: Acetaminophen 500 MG TAB PO SCH (15:30)
[2019-07-11 18:58] VITALS: BP 108/54; TEMP 98.2
[2019-07-11 19:29] LABS: #Lymphocytes 2.1 thou/uL (1.20-3.40); #Monocytes 1.6 thou/uL (0.11-0.59); #Neutrophils 8.3 thou/uL (1.40-6.50); %Basophils 0.2 % (0.0-1.0); %Eosinophils 0.1 % (0.0-10.0); %Lymphocytes 17.2 % (21.0-51.0); %Monocytes 13.2 % (0.0-10.0); %Neutrophils 69.2 % (42.0-75.0); Hemoglobin 8.7 g/dL (14.0-18.0); Mean Corpuscular HGB CONC 33.2 g/dL (32.0-36.0); Mean Corpuscular Hemoglobin 30.4 pg (27.0-31.0); Mean Corpuscular Volume 91.5 fL (78.0-98.0); Mean Platelet Volume 7.4 fL (7.4-10.4); Platelet Count 292 thou/uL (130-400); RBC Distribution Width 16.6 % (11.5-14.5); Red Blood Cell (RBC) Count 2.87 mill/uL (4.70-6.10)
== END 2019-07-11 19:18 | disposition home or self-care (01) ==
LOC: ONC/OP 14:35 → ONC 14:37 → ONC/OP 19:18
PROVIDERS: ATTEND Internal Medicine Hematology & Oncology
PROC: 30233N1 Transfusion of Nonautologous Red Blood Cells into Peripheral Vein, Percutaneous Approach (ICD-10-PCS; principal; 2019-07-11)
DX: D64.9 Anemia, unspecified (principal); D69.6 Thrombocytopenia, unspecified
CPT/HCPCS: 36430; 80053; 82248; 83615; 84100; 84550; 85025; 86850; 86900; 86901; P9016; Q0163

== ENCOUNTER 2019-08-07 10:16 | Day surgery (SDC) | payer MEDICARE, OTHER ==
[2019-08-07] MEDS ORDERED: Furosemide 20 MG/2 ML VIAL SLOW IVP SCH (10:45)
[2019-08-07] MEDS ORDERED: Acetaminophen 500 MG TAB PO SCH (10:45)
[2019-08-07] MEDS ORDERED: diphenhydrAMINE 25 MG CAP PO SCH (10:45)
[2019-08-07 12:19] VITALS: TEMP 98.6
[2019-08-07 14:28] VITALS: BP 109/60
== END 2019-08-07 17:45 | disposition home or self-care (01) ==
LOC: ONC/OP 10:16 → ONC 10:17 → ONC/OP 17:45
PROVIDERS: ATTEND Internal Medicine Hematology & Oncology
PROC: 30233N1 Transfusion of Nonautologous Red Blood Cells into Peripheral Vein, Percutaneous Approach (ICD-10-PCS; principal; 2019-08-07)
DX: D64.9 Anemia, unspecified (principal)
CPT/HCPCS: 36430; 77386; 86850; 86900; 86901; J1642; J1940; P9016; Q0163

== ENCOUNTER 2019-08-16 14:47 | Outpatient (CLI) | payer MEDICARE, OTHER ==
--- NOTE | 2019-08-16 15:20 | RAD ---
EXAM: Two views chest PROVIDED CLINICAL HISTORY: Cough. History of cancer. COMPARISON: 05/31/2019 FINDINGS: Large left pleural fluid collection is seen which has increased from the prior study likely related t o large left pleural effusion and associated volume loss. However, the upper portion of the pleural effusion may be partially loculated. Lung apices are partially obscured due to due to overlying jaw a nd mandible particularly on the left. Right lung remains clear. Left cardiac border is obscured. Tracheostomy device and right-sided Mediport catheter remain in place. Remote left-sided rib fracture s are again seen. IMPRESSION: 1. Interval enlargement of left-sided pleural fluid collection which may represent large left pleural effusion and associated atelectasis. The upper portion of the collection does appear partially loculated. CT scan thorax may be helpful for further evaluation. 2. Suggested nodular density overlying left upper lung zone which overlies the posterior left fifth r ib. There are remote left-sided rib fractures seen, and this may be secondary to remote rib fracture. Nodule in this region cannot be entirely excluded. This can also be evaluated on CT scan of the thorax..
== END 2019-08-16 14:48 | disposition home or self-care (01) ==
LOC: BICRAD 14:47
PROVIDERS: ATTEND Nurse Practitioner Family
DX: R05 Cough (principal); C32.1 Malignant neoplasm of supraglottis; J94.8 Other specified pleural conditions
CPT/HCPCS: 71046

== ENCOUNTER 2019-08-29 12:56 | Outpatient (CLI) | payer MEDICARE, OTHER ==
[2019-08-29] MEDS ORDERED: Iopamidol 370 76% 100 ML VIAL ONE (13:08)
--- NOTE | 2019-08-29 16:40 | CT ---
CT CHEST WITH CONTRAST: 08/29/19 INDICATIONS: Neoplasm of supraglottis. Neck swelling and shortness of breath. FINDINGS: There is a large left pleural effusion. Some fluid extends along the lateral chest wall and may be lo culated. There is associated dense left lower lobe atelectasis. The right lung is aerated. There are diffuse hazy reticular nodular opacities throughout the right liang ng more prominent in the right upper lobe. An atypical infectious process should be considered. Tiny right effusion. Mediastinum unremarkable. Images through the lower neck reveal a circumscribed low density fluid type collection in the soft ti ssues of the left neck which measure 5.5 cm diameter. Necrotic adenopathy and/or abscess are consider ations. Recommend clinical correlation. There is evidence of diffuse edema in the lower neck involvin g the infraglottic region. Images of the osseous structures reveal a compression deformity with slight comminution indicating a burst type fracture involving the L3 vertebra with loss of height. Recommend clinical correlation. IMPRESSION: 1. Large left pleural effusion. Some loculated fluid along the lateral left chest wall. Dense at electasis of the left lower lobe with shift in the mediastinum to the left. 2. Lung windows show a reticulonodular ground glass infiltrative process in the right lung prima rily involving the right upper lobe. Atypical infectious process should be excluded. 3. Images through the lower neck show diffuse infraglottic edema and a circumscribed low density mass involving the left neck measuring 5 to 6 cm. 4. Compression deformity indicating a burst type fracture involving the L3 vertebra. POS: AGW
== END 2019-08-29 12:57 | disposition home or self-care (01) ==
LOC: CT 12:56
PROVIDERS: ATTEND Internal Medicine Hematology & Oncology
DX: C32.1 Malignant neoplasm of supraglottis (principal); S32.031A Stable burst fracture of third lumbar vertebra, initial encounter for closed fracture; J90 Pleural effusion, not elsewhere classified; J98.11 Atelectasis; R22.1 Localized swelling, mass and lump, neck
CPT/HCPCS: 71260; Q9967

== ENCOUNTER 2019-08-30 11:39 | Inpatient (IN) | payer MEDICARE, OTHER ==
[2019-08-30] MEDS ORDERED: Lorazepam 2 MG/ML VIAL ONE (12:44)
[2019-08-30] MEDS ORDERED: Albuterol 200 PUFF (6.7GM INHALER) ONE ×2 (12:52→15:26)
[2019-08-30] MEDS ORDERED: Mometasone 100 MCG/Formoterol 5 MCG 120 PUFF INHALER INH SCH ×2 (13:00→19:30)
[2019-08-30] MEDS ORDERED: Mometasone 100 MCG/Formoterol 5 MCG 120 PUFF INHALER ONE (13:16)
[2019-08-30 13:19] LABS: Hemoglobin 5.5 g/dL (14.0-18.0); Mean Corpuscular HGB CONC 33.6 g/dL (32.0-36.0); Mean Corpuscular Hemoglobin 31.9 pg (27.0-31.0); Platelet Count 324 thou/uL (130-400); RBC Distribution Width 12.5 % (11.5-14.5); Red Blood Cell (RBC) Count 1.73 mill/uL (4.70-6.10); White Blood Cell (WBC) Count 9.2 thou/uL (4.8-10.8)
[2019-08-30 13:43] LABS: ALT (SGPT) Less than 7 U/L (8-55); AST (SGOT) 10 U/L (5-34); Alkaline Phosphatase 62 U/L (40-110); Anion Gap 10 mmol/L (10-20); BUN (Urea Nitrogen) 15 mg/dL (8.4-25.7); Bilirubin, Total 0.4 mg/dL (0.2-1.2); Calc. Creatinine Clearance 0 mL/min (70-130); Calcium 8.4 mg/dL (7.8-10.44); Carbon Dioxide 30 mmol/L (23-31); Chloride 96 mmol/L (98-107); Estimated GFR-MDRD Greater than 90; Globulin 3.1 g/dL (2.4-3.5); Glucose 138 mg/dL (80-115); Potassium 4.1 mmol/L (3.5-5.1); Protein, Total 6.1 g/dL (5.8-8.1); Sodium 132 mmol/L (136-145)
[2019-08-30 13:46] LABS: Band 3 % (5-11); Lymphocytes 4 % (21-51); MDiff Complete? YES; Monocytes 12 % (0-10); Neutrophil 78 % (42-75); Platelet Morphology Comment Appears Adequate; Polychromasia SLIGHT = 2-3 cells (100X) (0-2/hpf); Vacuoles SLIGHT
[2019-08-30 14:04] LABS: Bilirubin Negative (Negative); Blood, Urine Negative (Negative); Clarity Clear (Clear); Glucose, Urine (Dipstick) Normal (Negative); Leukocyte Negative Leu/uL (Negative); Nitrite Negative (Negative); Protein, Urine (Dipstick) 10 mg/dL (Neg-Trace); Urobilinogen Normal mg/dL (Less than 2)
[2019-08-30] MEDS ORDERED: Cefepime 2 GM VIAL ONE (15:57)
[2019-08-30] MEDS ORDERED: HYDROcodone/Acetaminophen 5/325 mg Tablet PO PRN ×2 (17:02)
--- NOTE | 2019-08-30 17:09 | RAD ---
PORTABLE CHEST ONE VIEW: Date: 08-30-2019 Time: 1239 p.m. History: Throat cancer, cough, shortness of breath, fever. FINDINGS/IMPRESSION: The heart size appears prominent. A large left pleural effusion is present. There is a right sided po rt-a-cath. There are mild nodular infiltrates in the right upper lobe. No pneumothoraces or large rig ht pleural effusions are seen. POS: RAMÍREZA
[2019-08-30] MEDS ORDERED: Ondansetron PF 4 MG/2 ML Vial IVP PRN (17:14)
[2019-08-30] MEDS ORDERED: Vancomycin 1 GM in Premix Bag 1 BAG IVPB SCH (17:15)
[2019-08-30] MEDS ORDERED: Scopolamine 1.5 mg/72 hour Patch TD SCH (18:00)
[2019-08-30] MEDS ORDERED: fentaNYL 50 mcg/hour Patch TD SCH (18:00)
--- NOTE | 2019-08-30 18:05 | HP ---
PRIMARY CARE PROVIDER: Unknown. CHIEF COMPLAINT: Shortness of breath. HISTORY OF PRESENT ILLNESS: Mr. Charles is a pleasant 69-year-old gentleman who was seen at [facility] on 08/30/2019. The patient is nonverbal at baseline secondary to laryngeal cancer and tracheostomy. He communicates by writing on a white board. When I saw him in the emergency room, he was tired and sleeping off, waking up to touch, but falling asleep again. Collateral history was obtained from discussion with emergency room physician, review of medical records, and discussion with the patient's daughter, Anali, over the telephone. The patient was diagnosed with laryngeal cancer in 01/2019. Initially, he had 3-drug chemotherapy. This is followed by daily radiation therapy and weekly chemotherapy. He gets chemotherapy every Monday, and received chemotherapy 3 days ago. He has completed 20 radiation treatments so far and has 15 more radiation treatments scheduled. The patient reportedly had worsening cough over the last 2 weeks. He had more secretions through his tracheostomy. He uses oxygen at home, 4 L/minute. He had a chest x-ray done on 08/16/2019. He was treated with levofloxacin for suspected pneumonia. He took levofloxacin orally for 1 week. He also reportedly had on and off fevers at home. He also reportedly had facial swelling 3 days ago and that could not fit a mask on him. He did not receive radiation treatments over the last 3 days. Last night, his oxygen saturations were found to be on 84%. He was, therefore, brought to the emergency room today. Family reports that he also has been having some problems with G-tube. They report that the PEG tube got dislodged and was reinserted 2 weeks ago. It was draining dark fluid and white sticky material. They tried to contact the surgeon's office, but they could not get him to see the surgeon. They are requesting orange peel operator evaluation of PEG tube while the patient is in the hospital. In the emergency room, the patient was found to have severe anemia with hemoglobin 5.5. He has been started on blood transfusion. Of note, the patient also had a CT scan of the chest done yesterday, which showed a large left pleural effusion, some loculated fluid along the lateral left chest wall, dense atelectasis of the left lower lobe with shift in the mediastinum to the left, lung windows showing a reticulonodular ground-glass infiltrative process in the right lung, primarily involving the right upper lobe, low density mass involving the left neck, measuring 5 to 6 cm and compression deformity indicating a burst type fracture involving the L3 vertebra. REVIEW OF SYSTEMS: Could not be completed secondary to the patient's lethargic status. PAST MEDICAL HISTORY: 1. COPD. 2. Hypertension. 3. Laryngeal tumor. SURGICAL HISTORY: 1. Hernia surgery x2 at age 6 years. 2. MediPort placement. 3. Tracheostomy. 4. G-tube. SOCIAL HISTORY: He is a former smoker. He used to drink alcohol on a daily basis in the past. No history of recreational drug use. CODE STATUS: I discussed his code status with his daughter who is his medical power of employment law attorney. She reiterated that they do not want CPR to be performed, but they are okay with intubation and mechanical ventilation and for pressors. ALLERGIES: PENICILLIN. CURRENT MEDICATIONS: Doses need to be clarified, but these appear to include: 1. Reglan. 2. Scopolamine. 3. Fentanyl patch. 4. DuoNebs. 5. Zofran. 6. Lorazepam. 7. Clayton. 8. Phenergan. 9. Minocycline. FAMILY HISTORY: No history of premature coronary artery disease. PHYSICAL EXAMINATION: GENERAL: On examination, Mr. Charles is sleepy, but arousable, not in acute distress. VITAL SIGNS: Blood pressure is 139/74, pulse 72, respiratory rate 18, and oxygen saturation 90% on 4 L of oxygen. EYES: No scleral icterus. He has conjunctival pallor. ENT: Moist mucosal membranes. NECK: Supple, he has tracheostomy, thick secretions in the tracheostomy. RESPIRATORY: Accessory muscles of breathing are not active. Chest wall movements are symmetric bilaterally. He has absent breath sounds over the left base. CARDIOVASCULAR: S1 and S2 are heard, regular. ABDOMEN: Soft, distended, nontender. He has a PEG tube. NEUROLOGIC: Full neurologic examination not possible secondary to the patient's noncooperation. No facial droop. The patient is moving all 4 extremities. Deep tendon reflexes 2+. MUSCULOSKELETAL: The patient is moving all 4 extremities. SKIN: PEG tube site has been cleaned and appears to be clean. PSYCHIATRIC: Unable to assess mood, affect, or orientation to person, place, or time. DIAGNOSTIC STUDIES: Mr. Charles's labs and investigations were reviewed. He had a chest x-ray done today, which shows a large left pleural effusion and right-sided Port-A-Cath. There are some mild nodular infiltrates in the right upper lobe. He has normal white count, normocytic anemia with hemoglobin 5.5, normal platelet count, decreased lymphocytes at 4%. Decreased sodium of 132, normal potassium, normal creatinine, normal lactic acid. Unremarkable LFTs. Elevated BNP of 700.9. Troponin-I is less than 0.010. Urinalysis is negative for nitrite and leukocyte esterase. ASSESSMENT AND PLAN: Mr. Charles is a pleasant 69-year-old gentleman who was seen at [facility] on 08/30/2019. His problem list includes: 1. [id number] hypoxic respiratory failure: Most likely secondary to pneumonia and pleural effusion. The patient will be admitted to the hospital for further management. 2. Pneumonia: The patient has been started on levofloxacin, cefepime, and vancomycin, which I will continue for now. We will follow blood cultures. COVID-19 test is also being sent to rule out COVID infection. 3. Pleural effusion: Pulmonology Service being consulted for opinion and help with management. 4. Anemia: Most likely secondary to chemotherapy. Stool occult blood test has been ordered by emergency room physician, we will follow. We will consult Oncology for opinion and help with management. 5. G-tube dislodgement: We will consult Gastroenterology Service once the acute issues are resolved for their opinion and help with management. 6. Hyponatremia: Mild, likely asymptomatic. Many thanks for allowing me to participate in your patient's care. Please feel free to contact me with any questions or concerns. LEVEL OF RISK: Moderate. LEVEL OF COMPLEXITY: Moderate. Job ID: [id number]
[2019-08-30] MEDS ORDERED: PROVENTIL INHALER 6.7 G (200 INHALATIONS) INH PRN (19:42)
[2019-08-30 19:57] VITALS: BMI 24.7
[2019-08-30] MEDS: Metoclopramide 10 MG/10 ML UDCUP PER TUBE SCH ×2 (20:56→23:27)
[2019-08-30] MEDS: Sodium Chloride 0.9% 1,000 ML IV SCH (21:00)
[2019-08-30] MEDS ORDERED: Cefepime 2 GM in Sodium Chloride 0.9% 100 ML IVPB SCH (21:00)
[2019-08-30 22:14] LABS: Hemoglobin 9.3 g/dL (14.0-18.0)
[2019-08-31] MEDS: Cefepime 2 GM in Sodium Chloride 0.9% 100 ML IVPB SCH ×2 (02:44→16:06)
[2019-08-31] MEDS: Vancomycin 1 GM in Premix Bag 1 BAG IVPB SCH ×2 (05:04→16:07)
[2019-08-31] MEDS: Metoclopramide 10 MG/10 ML UDCUP PER TUBE SCH ×4 (05:04→23:07)
[2019-08-31 05:48] LABS: ALT (SGPT) Less than 7 U/L (8-55); AST (SGOT) 10 U/L (5-34); Albumin 2.5 g/dL (3.4-4.8); Alkaline Phosphatase 51 U/L (40-110); Anion Gap 8 mmol/L (10-20); BUN (Urea Nitrogen) 14 mg/dL (8.4-25.7); Bilirubin, Total 0.5 mg/dL (0.2-1.2); Calc. Creatinine Clearance 109 mL/min (70-130); Carbon Dioxide 31 mmol/L (23-31); Chloride 99 mmol/L (98-107); Estimated GFR-MDRD Greater than 90; Globulin 2.6 g/dL (2.4-3.5); Glucose 93 mg/dL (80-115); Potassium 4.4 mmol/L (3.5-5.1); Protein, Total 5.1 g/dL (5.8-8.1); Sodium 134 mmol/L (136-145)
[2019-08-31 05:49] LABS: Band 4 % (5-11); Eosinophils 1 % (0-10); Hemoglobin 8.8 g/dL (14.0-18.0); Lymphocytes 8 % (21-51); MDiff Complete? YES; Mean Corpuscular HGB CONC 31.3 g/dL (32.0-36.0); Mean Corpuscular Hemoglobin 29.6 pg (27.0-31.0); Mean Corpuscular Volume 94.3 fL (78.0-98.0); Mean Platelet Volume 6.9 fL (7.4-10.4); Monocytes 26 % (0-10); Neutrophil 61 % (42-75); Platelet Count 218 thou/uL (130-400); Platelet Morphology Comment Appears Adequate; RBC Distribution Width 13.2 % (11.5-14.5); RBC Morphology Normal; Red Blood Cell (RBC) Count 2.98 mill/uL (4.70-6.10); White Blood Cell (WBC) Count 5.4 thou/uL (4.8-10.8)
[2019-08-31] MEDS: Sodium Chloride 0.9% 1,000 ML IV SCH ×2 (07:13→18:04)
[2019-08-31 12:18] LABS: SARS-CoV-2 MS2 Positive; SARS-CoV-2 N Gene Negative; SARS-CoV-2 S Gene Negative; SARS-CoV-2 orf1ab Negative
[2019-08-31] MEDS ORDERED: Morphine 2 MG/ML SYRINGE SLOW IVP PRN (13:14)
--- NOTE | 2019-08-31 16:30 | CON ---
DATE OF CONSULTATION: 08/31/2019 HISTORY OF PRESENT ILLNESS: Mr. Charles is a 69-year-old male who was admitted with a pleural effusion. He is also admitted and discovered to rule out. His COVID screen swab was negative. He has throat cancer and a tracheostomy. Reviewing old x-rays approximately 3 weeks ago. He is known to have a large effusion. The day prior to admission, he had a CT showing a large effusion with a component of lateral loculation with significant volume of fluid in the chest, that appears to be free-flowing. He is complaining of shortness of breath. I was consulted. I have recommended thoracentesis. Risks of bleeding, infection, and lung collapse were explained. He is willing to proceed. PAST MEDICAL HISTORY: Remarkable for: 1. COPD. 2. Hypertension. 3. Throat cancer. 4. History of herniorrhaphy 5. History of MediPort placement. 6. History of tracheostomy. 7. History of G-tube. SOCIAL HISTORY: Former smoker. He used to be a drinker. ALLERGIES: HE REPORTS PENICILLIN ALLERGY. PHYSICAL EXAMINATION: VITAL SIGNS: He is afebrile, heart rate 72, blood pressure 120/70, respiratory rate is in the 20s. HEAD AND NECK: He is very cachectic. He has temporal muscle wasting. He is nonverbal. He has tracheostomy. Left neck is very swollen LUNGS: Remarkable for decreased breath sounds at the left base. HEART: Regular rhythm. ABDOMEN: Soft. EXTREMITIES: Without clubbing, cyanosis, or edema. LABORATORY DATA: White count was 5.4 and hemoglobin was 5.5. He is transfused , his hemoglobin is 8.8. Electrolytes are unremarkable. IMPRESSION: Subacute pleural effusion, this is likely malignant versus parapneumonic. With his history of head and neck cancer, it would seem more likely be malignant, especially given the massive size. I suspect his severe anemia pushed him over the edge with leading to his severe dyspnea. His dyspnea improved with this transfusion apparently. I have recommended thoracentesis and he is willing to proceed at this time. This is a 70-minute consult, 50% of the time spent on the unit coordinating care excluding procedures. Job ID: [id number] MTDD
[2019-08-31] MEDS: Morphine 4 MG/ML VIAL SLOW IVP PRN ×2 (17:33→22:27)
[2019-08-31] MEDS ORDERED: HYDROcodone/Acetaminophen 5/325 mg Tablet PO PRN (17:39)
[2019-08-31] MEDS ORDERED: Ondansetron PF 4 MG/2 ML Vial IVP PRN (17:42)
--- NOTE | 2019-08-31 17:54 | PDOC.HOSPP ---
- Subjective Encounter Date: 08/31/19 Encounter Time: 16:00 Subjective: Pt seen for followyup re: acute on chronic hypoxic respiratory failure. Feels slightly better, but still has significant dyspnea. - Objective Vital Signs & Weight: Vital Signs (12 hours) Temp Pulse Ox 08/31/19 16:28 99 08/31/19 16:13 95 08/31/19 13:00 97.6 F 08/31/19 08:00 99 Weight Admit Weight 163 lb Weight 163 lb 3.2 oz Most Recent Monitor Data Heart Rate from ECG 72 NIBP 120/70 NIBP BP-Mean 86 Respiration from ECG 23 SpO2 95 I&O: 08/30/19 08/31/19 09/01/19 06:59 06:59 06:59 Intake Total 950 Output Total 500 Balance 450 Result Diagrams: 08/31/19 05:00 08/31/19 05:00 Additional Labs: Labs and MARs reviewed by me Hospitalist ROS - Review of Systems Respiratory: reports: cough, shortness of breath, SOB with excertion. denies: dry, hemoptysis, pleuritic pain, sputum, wheezing Cardiovascular: denies: chest pain, palpitations, orthopnea, paroxysmal noc. dyspnea, edema, light headedness - Medication Medications: Active Medications Generic Name Dose Route Start Last Admin Trade Name Freq PRN Reason Stop Dose Admin Cefepime HCl 2 gm/ Sodium 100 mls @ 200 mls/hr 08/31/19 04:00 08/31/19 16:06 Chloride IVPB 100 mls 0400,1600 MATHEW Administration Scopolamine 1.5 mg 08/30/19 18:00 08/30/19 21:13 Transderm Scop TD 1.5 mg Q3D MATHEW Administration Sodium Chloride 10 ml 08/30/19 21:00 08/31/19 07:14 Flush - Normal Saline IVF 10 ml Q12HR MATHEW Administration - Exam General Appearance: awake alert Eye: anicteric sclera ENT: moist mucosa Neck - other findings: tracheostomy Heart: RRR, no rubs Respiratory - other findings: Absent breath sounds L base Gastrointestinal - other findings: PEG tube Skin: no rashes Psychiatric: normal affect Hosp A/P (1) Acute and chronic respiratory failure with hypoxia Code(s): J96.21 - ACUTE AND CHRONIC RESPIRATORY FAILURE WITH HYPOXIA Status: Acute (2) Symptomatic anemia Code(s): D64.9 - ANEMIA, UNSPECIFIED Status: Acute (3) Head and neck cancer Code(s): C76.0 - MALIGNANT NEOPLASM OF HEAD, FACE AND NECK Status: Chronic (4) Pleural effusion, left Code(s): J90 - PLEURAL EFFUSION, NOT ELSEWHERE CLASSIFIED Status: Chronic (5) Tracheostomy in place Code(s): Z93.0 - TRACHEOSTOMY STATUS Status: Chronic - Plan Continue IV cefepime, follow cultures. For thoracentesis today. COVID 19 PCR test negative. Plan for PEG tube procedure. Daughter updated over the telephone. Hb stable after pRBC transfusion.
[2019-08-31 18:36] LABS: Pleural Fluid, Amylase Less than 30 U/L (Not Available); Pleural Fluid, Glucose 95 mg/dL; Pleural Fluid, LDH 67 U/L (Not Available); Pleural Fluid, Protein 2.8 g/dL
--- NOTE | 2019-08-31 20:34 | CON ---
DATE OF CONSULTATION: 08/31/2019 REQUESTING PHYSICIAN: Andrew Cronin MD REASON FOR CONSULTATION: Problems with PEG tube. HISTORY OF PRESENT ILLNESS: Carlos Manuel Charles is a very pleasant, but unfortunate 69-year-old gentleman, who was admitted to the hospital yesterday with worsening cough for the past couple of weeks and intermittent fevers, found to be hypoxic despite his home oxygen. He had recently completed one week of levofloxacin, but was having symptoms despite this. He was admitted to the hospital last night with CT chest showing a large left pleural effusion and dense atelectasis as well as right lung reticulonodular opacities. This is all in the context of known laryngeal cancer, for which he has been undergoing chemotherapy and prior radiation treatments. CT also shows a 5.5 cm fluid collection in the neck representing either abscess or necrotic lymphadenopathy. The patient is followed by Dr. Andino with Oncology. Pertinent labs include elevated BNP is 700.9 and hemoglobin of 5.5 responded well to 2 units of RBCs, now up to 8.8 with no overt bleeding. This is likely secondary to chemotherapy. The patient has been getting tracheostomy care and supplemental oxygen. Currently, he appears clinically stable. We are consulted due to issues with the PEG tube. Per my conversation with the patient and his daughter, evidently this PEG tube was placed in [place], [place] during an extended hospitalization in late 2019 when this diagnosis was made. They state they never really had a problem with the PEG tube or PEG feedings until recently. A couple of weeks ago, evidently the PEG tube was inadvertently dislodged during a severe coughing fit. The patient was able to see Dr. Blaine Hurtado, who put in a replacement tube. Unfortunately, over the past couple of weeks since then they have not been happy with the tube. It seems to function well, feeds go in properly. But, there is a lot of leakage around the tube, particularly after any feedings are given. There is redness in the area and a bit of discomfort as well. They have requested a automotive parts clerk to check the tube site as well. REVIEW OF SYSTEMS: The patient has chronic dyspnea issues with secretions through his tracheostomy. Otherwise, full review of systems including constitutional, head, eyes, ears, nose, throat, GI, , cardiovascular, respiratory, musculoskeletal, and neurologic systems is negative except as noted in the HPI. PAST MEDICAL HISTORY: COPD, hypertension, squamous cell carcinoma of the larynx, tracheostomy, gastrostomy tube, hernia surgery x2 at age 6 years, and pneumonia. SOCIAL HISTORY: He is a former smoker, prior heavy alcohol use, none currently. No drug use. FAMILY HISTORY: Noncontributory. No history of premature coronary artery disease. CODE STATUS: The patient is modified DNR. No CPR to be performed, but okay with intubation and mechanical ventilation if necessary. ALLERGIES: PENICILLIN. OUTPATIENT MEDICATIONS: 1. Reglan. 2. Scopolamine. 3. Fentanyl patch. 4. DuoNebs. 5. Zofran. 6. Lorazepam. 7. [place]. 8. Phenergan. 9. Minocycline. PHYSICAL EXAMINATION: VITAL SIGNS: Temperature 98.0, pulse 77, blood pressure 133/76, and 98% oxygen saturation. GENERAL: Chronically ill 69-year-old man, lying in bed, in no distress. SKIN: He has a lot of postradiation erythema to the left side of the neck. He is pale. No jaundice. EYES: No scleral icterus. Extraocular movements intact. ENT: The patient has moist mucous membranes. He has a tracheostomy in place. Thick secretions in the tracheostomy. HEART: Regular rate and rhythm. LUNGS: Decreased breath sounds on the left side. No respiratory distress. ABDOMEN: Bowel sounds present. The abdomen is nondistended, soft, and nontender to palpation. PEG tube in place in the left upper quadrant. There is some mild surrounding erythema around the PEG site, but no induration or fluctuance. Notably, the external bumper is quite loose at a distance of 5 cm. I tightened the external bumper down to a distance of 3 cm today. EXTREMITIES: No peripheral edema. NEURO: Cranial nerves 2 through 12 intact bilaterally. He moves all four extremities. He is cooperative. LABORATORY STUDIES: Hemoglobin initially 5.5, now up to 8.8 with after 2 units RBC transfusion. WBC 5.4 and platelets 218. BNP 700.9. Lactic acid 0.8. Total bilirubin 0.5, total bilirubin is 0.5, alkaline phosphatase is 51, AST 10, ALT less than 7, and albumin 2.5. Sodium 134, potassium 4.4, BUN 14, creatinine 0.68, and calcium 8.0. Troponin negative. Blood and urine cultures from yesterday show no growth to-date. Urinalysis negative. COVID PCR is negative. IMAGING STUDIES: Chest x-ray showed large left pleural effusion. CT chest from 2 days ago showed large left pleural effusion with possible loculation. There is left lower lobe dense atelectasis with mediastinal shift to the left. There were also reticulonodular opacities throughout the right lung. There was a 5.5 cm fluid collection in the left neck representing either abscess or necrotic lymphadenopathy. There is diffuse edema of the lower neck. ASSESSMENT AND PLAN: 1. Oropharyngeal dysphagia, secondary to locally advanced laryngeal cancer. 2. Percutaneous endoscopic gastrostomy tube complication. I examined the percutaneous endoscopic gastrostomy tube and had a long discussion with the patient and his daughter over the phone. I am not sure what the size of his initial PEG tube was, but it appears to have been replaced with a 20-[place] standard replacement tube. We discussed that sometimes it takes some time for the percutaneous endoscopic gastrostomy tube tract to stenose down to the size of a new smaller replacement tube. I think the exudate they are seeing with feedings are simply gastric contents and does not represent pus or any subcutaneous infection or abscess. There may be a little bit of mild cellulitis around the percutaneous endoscopic gastrostomy tube site, but he is on broad-spectrum antibiotics now, which should certainly take care of that. More importantly, the external bumper is quite loose, there is too much play in the tube and that is allowing easier leakage of gastric contents around the tube. During this time, I have gone ahead and tightened the external bumper to a distance of 3 cm, in attempt to bring the internal bumper up closer to the gastric wall and stop the leakage from around the percutaneous endoscopic gastrostomy tube. I discussed with the nurse the effort should be made to maintain the external bumper at a 3 cm distance at least for the next couple of days. I will come by to check on the tube tomorrow. The percutaneous endoscopic gastrostomy tube is functioning well and I see no need to replace it. Job ID: [id number]
[2019-08-31] MEDS: Minocycline HCl 50 MG CAP PER TUBE SCH (21:54)
--- NOTE | 2019-08-31 22:13 | CON ---
DATE OF CONSULTATION: REASON FOR CONSULT: Laryngeal cancer. HISTORY OF PRESENT ILLNESS: Mr. Charles is a 69-year-old gentleman, who was diagnosed with squamous cell carcinoma of the larynx in late 2018. He required a tracheotomy at that time. He underwent induction chemotherapy and completed 3 cycles in June with dramatic decrease in his left neck. He then started radiation with weekly Erbitux. His last chemo treatment was on August 26. At that time, he was complaining of shortness of breath. He underwent a chest CT on the , which showed a large left pleural effusion. It looks like fluid extended from the lateral chest wall and was possibly loculated. He had diffuse infraglottic edema in his lower neck with a 5 to 6 cm mass. He was hypoxic and sent to the emergency room for evaluation. Lab drawn in the emergency room showed a hemoglobin of 5.5 and his BNP was 700. He was admitted for further treatment. He is seen at bedside today. He is nonverbal and uses a white board for communication. He is having mild respiratory distress. Dr. Rowe has seen the patient and is planning a thoracentesis today. PAST MEDICAL HISTORY: 1. Squamous cell carcinoma of the larynx. 2. Hypertension. 3. Atrial fibrillation. 4. Hyperlipidemia. 5. COPD. 6. CHF. 7. History of tobacco and alcohol abuse. PAST SURGICAL HISTORY: 1. Cataract surgery. 2. Hernia repair. 3. Left neck FNA. 4. MediPort placement. 5. Tracheostomy. 6. PEG tube placement. ALLERGIES: TO AUGMENTIN. CURRENT MEDICATIONS: 1. Fentanyl patch. 2. [place]. 3. We will start Lortab Elixir. 4. Ativan. 5. Reglan. 6. Minocycline. 7. Promethazine. 8. Scopolamine. FAMILY HISTORY: Father had throat cancer. SOCIAL HISTORY: . Has 2 children. Lives with his daughter, 35 pack- year history of smoking, daily drinker until diagnosis. REVIEW OF SYSTEMS: Unable to obtain secondary to shortness of breath. PHYSICAL EXAMINATION: VITAL SIGNS: Temperature 97.6, pulse is 72, respiratory rate 23, blood pressure is 120/70, he is 95% on 35% FiO2 trach collar. GENERAL: Chronically ill-appearing male, in mild respiratory distress. HEENT: Normocephalic, atraumatic. Pupils are equal and reactive to light. NECK: He has a large mass on his left neck with tracheostomy in place. CV: Regular rate and rhythm. LUNGS: He has scattered rhonchi. ABDOMEN: Soft with a PEG tube in place. EXTREMITIES: Bilateral lower extremity edema. SKIN: No rash. HEMATOLOGICAL: No petechiae or purpura. NEUROLOGIC: Nonfocal. PERTINENT LABORATORY DATA AND X-RAYS: Current WBCs 5.4, hemoglobin 8.8, hematocrit 28.1, platelet count 218,000, 61% neutrophils, 4% bands, 8% lymphocytes. Sodium 134, potassium 4.4, chloride 99, CO2 is 31, BUN is 14, creatinine 0.68, calcium 8, bilirubin 0.5, AST is 10, ALT is less than 7, alkaline phosphatase is 51. BNP is 700.9. Serum total protein is 51, albumin 2.5, globulin 2.6. COVID is negative. ASSESSMENT: 1. Squamous cell carcinoma of the larynx, currently on radiation with weekly Erbitux chemotherapy. 2. Large left pleural effusion with hypoxia. 3. Possible pneumonia. 4. Symptomatic anemia, secondary to chemoradiation. DISCUSSION: The patient has been transfused with 2 units of blood. Hypoxia improved. He has been seen by Dr. Rowe. Thoracentesis planned today. Cytology should be sent, however, pleural fluid in the past was negative. He does have a history of an elevated BNP on this admission. He's had significant BLE in the recent past now resolved with diuretics. We will continue to monitor on a daily basis. His anemia is likely from treatment as there is no evidence of bleeding. We will follow along with his hospital course. He is very frail and my understanding is the daughter has be injured in a MVC. She is his primary caregiver. He may need placement at discharge. Thank you for the consult. Job ID: [id number] MTDD
[2019-08-31] MEDS: HYDROcodone/Acetaminophen 5/325 mg Tablet PO PRN (23:05)
[2019-09-01] MEDS: Morphine 4 MG/ML VIAL SLOW IVP PRN ×3 (02:05→16:31)
[2019-09-01] MEDS: Cefepime 2 GM in Sodium Chloride 0.9% 100 ML IVPB SCH ×2 (04:55→16:31)
[2019-09-01] MEDS: HYDROcodone/Acetaminophen 5/325 mg Tablet PO PRN ×4 (04:56→20:20)
[2019-09-01] MEDS: Metoclopramide 10 MG/10 ML UDCUP PER TUBE SCH ×3 (04:58→17:21)
[2019-09-01] MEDS: Sodium Chloride 0.9% 1,000 ML IV SCH ×3 (08:34→20:27)
[2019-09-01 09:06] LABS: Mean Corpuscular HGB CONC 30.7 g/dL (32.0-36.0); Mean Corpuscular Hemoglobin 29.9 pg (27.0-31.0); Mean Corpuscular Volume 97.5 fL (78.0-98.0); Mean Platelet Volume 6.8 fL (7.4-10.4); Platelet Count 241 thou/uL (130-400); Red Blood Cell (RBC) Count 3.33 mill/uL (4.70-6.10); White Blood Cell (WBC) Count 4.9 thou/uL (4.8-10.8)
[2019-09-01] MEDS: Minocycline HCl 50 MG CAP PER TUBE SCH ×2 (09:10→20:20)
[2019-09-01 09:13] LABS: Anion Gap 8 mmol/L (10-20); BUN (Urea Nitrogen) 19 mg/dL (8.4-25.7); Calc. Creatinine Clearance 99 mL/min (70-130); Calcium 7.9 mg/dL (7.8-10.44); Carbon Dioxide 29 mmol/L (23-31); Chloride 102 mmol/L (98-107); Estimated GFR-MDRD Greater than 90; Glucose 127 mg/dL (80-115); Potassium 4.2 mmol/L (3.5-5.1); Sodium 135 mmol/L (136-145)
[2019-09-01 09:55] LABS: Eosinophils 3 % (0-10); Hypersemented Neutrophil SLIGHT; Hypochromia SLIGHT = 6-15 cells (100X) (0-5/hpf); Lymphocytes 15 % (21-51); MDiff Complete? YES; Monocytes 19 % (0-10); Neutrophil 63 % (42-75); Platelet Morphology Comment Appears Adequate; Vacuoles SLIGHT
--- NOTE | 2019-09-01 11:23 | PRG ---
DATE OF SERVICE: 09/01/2019 SUBJECTIVE: Mr. Charles underwent thoracentesis earlier today. His breathing is a little bit better. He remains depressed. Leakage around the PEG tube site has significantly slowed since tightening it yesterday, still persist to some extent. OBJECTIVE: VITAL SIGNS: Temperature 98.8, pulse 72, blood pressure 101/58, oxygen saturation 93% on 8 L through the trach collar. GENERAL: No acute distress. HEART: Regular rate and rhythm. LUNGS: Decreased breath sounds on the left. Crackles on the right. No respiratory distress currently. ABDOMEN: Bowel sounds are present. Soft and nontender. PEG site looks good. There is less erythema around the stoma. There is some minimal oozing of gastric contents around the tube. I tightened it a bit further to 2 cm this morning. EXTREMITIES: 1+ bilateral lower extremity edema. LABORATORY STUDIES: WBC 4.9, hemoglobin 10.0, and platelets 241. Sodium 135, potassium 4.2, BUN 19, creatinine 0.75, and glucose 127. ASSESSMENT AND PLAN: 1. Oropharyngeal dysphagia, secondary to laryngeal cancer. 2. Attention to gastrostomy. I again discussed with the patient as well as his son this morning, the PEG tube appears to be functioning well. There is no need to replace it. The stoma needs some time to close up to match the size of the tube. In the meantime, keep the tube on the tight side, I tightened it further to a distance of 2 cm today. Some degree of leakage of gastric contents is acceptable. He may have been developing some early cellulitis around the site, but on the broad-spectrum antibiotics currently, this should not be an issue. GI will sign off. Please call back anytime with questions or concerns. Job ID: [id number]
--- NOTE | 2019-09-01 14:20 | PDOC.HOSPP ---
- Subjective Encounter Date: 09/01/19 Encounter Time: 09:00 Subjective: Pt seen for followup re: acute on chronic hypoxic respiratory failure. Feels better today. No chest pain. Cough+ - Objective Vital Signs & Weight: Vital Signs (12 hours) Temp Pulse Resp BP BP Pulse Ox 09/01/19 13:05 77 20 09/01/19 11:00 98.5 F 71 20 112/68 99 09/01/19 08:45 93 L 09/01/19 06:52 93 L 09/01/19 06:51 72 16 93 L 09/01/19 04:00 98.8 F 69 18 101/58 L 97 Weight Admit Weight 163 lb Weight 163 lb 3.2 oz Most Recent Monitor Data Heart Rate from ECG 72 NIBP 120/70 NIBP BP-Mean 86 Respiration from ECG 23 SpO2 95 I&O: 08/31/19 09/01/19 09/02/19 06:59 06:59 06:59 Intake Total 950 2020 Output Total 500 Balance 450 2020 Result Diagrams: 09/01/19 08:45 09/01/19 08:45 Additional Labs: Labs and MARs reviewed by or Hospitalist ROS - Review of Systems Respiratory: reports: cough, dry. denies: shortness of breath, hemoptysis, SOB with excertion, pleuritic pain, sputum, wheezing Cardiovascular: denies: chest pain, palpitations, orthopnea, paroxysmal noc. dyspnea, edema, light headedness Skin: denies: rash, lesions, ade, bruising - Medication Medications: Active Medications Generic Name Dose Route Start Last Admin Trade Name Freq PRN Reason Stop Dose Admin Hydrocodone Bitart/Acetaminophen 2 tab 08/31/19 17:40 09/01/19 09:08 [place] 5/325 PO 2 tab Q4H PRN Administration Moderate Pain (4-6) Albuterol/Ipratropium 3 ml 08/31/19 19:00 09/01/19 13:05 Duoneb NEB 3 ml [id number] MATHEW Administration Cefepime HCl 2 gm/ Sodium 100 mls @ 200 mls/hr 08/31/19 04:00 09/01/19 04:55 Chloride IVPB 100 mls 0400,1600 MATHEW Administration Sodium Chloride 1,000 mls @ 70 mls/hr 08/31/19 17:45 09/01/19 09:43 Normal Saline 0.9% IV 1,000 mls .[id number] MATHEW Administration Metoclopramide HCl 10 mg 08/31/19 18:00 09/01/19 12:36 Reglan PER TUBE 10 mg Q6HR MATHEW Administration Minocycline HCl 100 mg 08/31/19 21:00 09/01/19 09:10 Minocycline Hcl PER TUBE 100 mg BID MATHEW Administration Morphine Sulfate 4 mg 08/31/19 16:41 09/01/19 12:36 Morphine SLOW IVP 4 mg Q2H PRN Administration Severe Pain (7-10) Scopolamine 1.5 mg 08/30/19 18:00 08/30/19 21:13 Transderm Scop TD 1.5 mg Q3D MATHEW Administration Sodium Chloride 10 ml 08/30/19 21:00 09/01/19 09:11 Flush - Normal Saline IVF Not Given Q12HR MATHEW - Exam General Appearance: awake alert Eye: anicteric sclera Neck - other findings: tracheostomy Heart: RRR, no gallops, no rubs, normal peripheral pulses Respiratory: CTAB Gastrointestinal: soft, non-tender Gastrointestinal - other findings: G-tube Psychiatric: normal affect, normal behavior Hosp A/P (1) Acute and chronic respiratory failure with hypoxia Code(s): J96.21 - ACUTE AND CHRONIC RESPIRATORY FAILURE WITH HYPOXIA Status: Acute (2) Symptomatic anemia Code(s): D64.9 - ANEMIA, UNSPECIFIED Status: Acute (3) Head and neck cancer Code(s): C76.0 - MALIGNANT NEOPLASM OF HEAD, FACE AND NECK Status: Chronic (4) Pleural effusion, left Code(s): J90 - PLEURAL EFFUSION, NOT ELSEWHERE CLASSIFIED Status: Chronic (5) Tracheostomy in place Code(s): Z93.0 - TRACHEOSTOMY STATUS Status: Chronic - Plan Continue IV cefepime, follow cultures. s/p thoracentesis yesterday COVID 19 PCR test negative. Hb stable after pRBC transfusion, 10.0 today.
--- NOTE | 2019-09-01 15:21 | PRG ---
DATE OF SERVICE: 09/01/2019 Carlos Manuel Charles says he is feeling better. He communicates via writing. His hemodynamics had been stable. Surprisingly, his fluid was transudative. We are awaiting pathology. BNP on admission is 700. I have ordered an echocardiogram. He did not have proteinuria. His albumin is a little bit low, but I do not think that explains his effusion completely. Job ID: [id number] MTDD
--- NOTE | 2019-09-01 18:45 | OP ---
DATE OF PROCEDURE: 08/31/2019 PROCEDURE PERFORMED: Thoracentesis. INDICATION: Large left effusion. DESCRIPTION OF PROCEDURE: Left posterior hemithorax was cleansed with chlorhexidine. 10 mL of 1% lidocaine was used to anesthetize the skin and the interspace. An 8-[place] Mtpl-K-Dzszohkm catheter was inserted into the pleural space without difficulty. 1.5 L of clear yellow pleural fluid was evacuated without difficulty. No air was aspirated. There was no clinical indication of pneumothorax. He had mild pleuritic chest discomfort at the end of the procedure. He tolerated the procedure well overall. Sterile dressing was applied. He will be given a low-dose morphine for his pleuritic chest discomfort. Specimen will be sent for appropriate studies. I was anticipating bloody fluid, but this was clear yellow fluid surprisingly. I doubt this would be heart failure fluid given that it appears to be loculated laterally on the left side. Job ID: [id number]
[2019-09-02] MEDS: HYDROcodone/Acetaminophen 5/325 mg Tablet PO PRN ×4 (00:51→21:16)
[2019-09-02] MEDS: Metoclopramide 10 MG/10 ML UDCUP PER TUBE SCH ×5 (00:52→23:42)
[2019-09-02] MEDS: Morphine 4 MG/ML VIAL SLOW IVP PRN ×4 (02:39→16:11)
[2019-09-02] MEDS: Cefepime 2 GM in Sodium Chloride 0.9% 100 ML IVPB SCH ×2 (03:46→16:05)
[2019-09-02 05:53] LABS: Anion Gap 8 mmol/L (10-20); BUN (Urea Nitrogen) 17 mg/dL (8.4-25.7); Calc. Creatinine Clearance 112 mL/min (70-130); Calcium 7.9 mg/dL (7.8-10.44); Carbon Dioxide 29 mmol/L (23-31); Chloride 104 mmol/L (98-107); Estimated GFR-MDRD Greater than 90; Glucose 111 mg/dL (80-115); Potassium 4.2 mmol/L (3.5-5.1); Sodium 137 mmol/L (136-145)
[2019-09-02 06:13] LABS: Band 7 % (5-11); Eosinophils 5 % (0-10); Hemoglobin 9.1 g/dL (14.0-18.0); Lymphocytes 15 % (21-51); MDiff Complete? YES; Mean Corpuscular HGB CONC 31.3 g/dL (32.0-36.0); Mean Corpuscular Hemoglobin 30.2 pg (27.0-31.0); Mean Corpuscular Volume 96.5 fL (78.0-98.0); Mean Platelet Volume 6.8 fL (7.4-10.4); Monocytes 20 % (0-10); Neutrophil 53 % (42-75); Platelet Count 245 thou/uL (130-400); Platelet Morphology Comment Appears Adequate; RBC Distribution Width 12.9 % (11.5-14.5); Red Blood Cell (RBC) Count 3.01 mill/uL (4.70-6.10); White Blood Cell (WBC) Count 3.9 thou/uL (4.8-10.8)
[2019-09-02] MEDS: Minocycline HCl 50 MG CAP PER TUBE SCH ×2 (08:25→21:14)
[2019-09-02] MEDS: Sodium Chloride 0.9% 1,000 ML IV SCH (11:06)
[2019-09-02] MEDS ORDERED: Promethazine 25 MG TAB PER TUBE SCH (14:15)
[2019-09-02] MEDS: Promethazine 25 MG TAB PER TUBE SCH ×2 (16:12→23:42)
[2019-09-02] MEDS: fentaNYL 50 mcg/hour Patch TD SCH (17:19)
--- NOTE | 2019-09-02 19:02 | PDOC.HOSPP ---
- Subjective Encounter Date: 09/02/19 Encounter Time: 09:40 Subjective: Pt seen for followup: acute on chronic hypoxic resp failure. Feels better today. - Objective Vital Signs & Weight: Vital Signs (12 hours) Temp Pulse Resp BP Pulse Ox 09/02/19 18:37 80 16 99 09/02/19 14:42 77 16 99 09/02/19 08:00 99 09/02/19 07:21 98.8 F 96 18 122/66 99 Weight Admit Weight 163 lb Weight 163 lb 3.2 oz Most Recent Monitor Data Heart Rate from ECG 72 NIBP 120/70 NIBP BP-Mean 86 Respiration from ECG 23 SpO2 95 I&O: 09/01/19 09/02/19 09/03/19 06:59 06:59 06:59 Intake Total 2019 1410 1784 Output Total 900 Balance 2019 510 1784 Result Diagrams: 09/02/19 05:13 09/02/19 05:13 Additional Labs: Labs and MARs reviewed by me Hospitalist ROS - Review of Systems Constitutional: denies: fever, sweats, weakness Respiratory: reports: cough, dry. denies: shortness of breath, hemoptysis, SOB with excertion, pleuritic pain, wheezing Cardiovascular: denies: chest pain, palpitations, orthopnea, paroxysmal noc. dyspnea, edema, light headedness - Medication Medications: Active Medications Generic Name Dose Route Start Last Admin Trade Name Freq PRN Reason Stop Dose Admin Hydrocodone Bitart/Acetaminophen 2 tab 08/31/19 17:40 09/02/19 10:30 [place] 5/325 PO 2 tab Q4H PRN Administration Moderate Pain (4-6) Albuterol/Ipratropium 3 ml 08/31/19 19:00 09/02/19 18:37 Duoneb NEB 3 ml [id number] MATHEW Administration Fentanyl 50 mcg 09/02/19 18:00 09/02/19 17:19 [place] TD 50 mcg Q3D MATHEW Administration Cefepime HCl 2 gm/ Sodium 100 mls @ 200 mls/hr 08/31/19 04:00 09/02/19 16:05 Chloride IVPB 100 mls 0400,1600 MATHEW Administration Sodium Chloride 1,000 mls @ 70 mls/hr 08/31/19 17:45 09/02/19 11:06 Normal Saline 0.9% IV 1,000 mls .[id number] MATHEW Administration Metoclopramide HCl 10 mg 08/31/19 18:00 09/02/19 16:12 Reglan PER TUBE 10 mg Q6HR MATHEW Administration Minocycline HCl 100 mg 08/31/19 21:00 09/02/19 08:25 Minocycline Hcl PER TUBE 100 mg BID MATHEW Administration Morphine Sulfate 4 mg 08/31/19 16:41 09/02/19 16:11 Morphine SLOW IVP 4 mg Q2H PRN Administration Severe Pain (7-10) Promethazine HCl 25 mg 09/02/19 18:00 09/02/19 16:12 Phenergan PER TUBE 25 mg Q6HR MATHEW Administration Sodium Chloride 10 ml 08/30/19 21:00 09/02/19 08:25 Flush - Normal Saline IVF 10 ml Q12HR MATHEW Administration - Exam General Appearance: awake alert Eye: anicteric sclera ENT: moist mucosa Neck - other findings: Trach Heart: RRR Respiratory: CTAB Gastrointestinal: soft, non-tender Musculoskeletal: no muscle wasting Psychiatric: normal affect, normal behavior Hosp A/P (1) Acute and chronic respiratory failure with hypoxia Code(s): J96.21 - ACUTE AND CHRONIC RESPIRATORY FAILURE WITH HYPOXIA Status: Acute (2) Symptomatic anemia Code(s): D64.9 - ANEMIA, UNSPECIFIED Status: Acute (3) Head and neck cancer Code(s): C76.0 - MALIGNANT NEOPLASM OF HEAD, FACE AND NECK Status: Chronic (4) Pleural effusion, left Code(s): J90 - PLEURAL EFFUSION, NOT ELSEWHERE CLASSIFIED Status: Chronic (5) Tracheostomy in place Code(s): Z93.0 - TRACHEOSTOMY STATUS Status: Chronic - Plan Continue IV cefepime s/p thoracentesis COVID 19 PCR test negative. Hb stable after pRBC transfusion
[2019-09-02] MEDS: Scopolamine 1.5 mg/72 hour Patch TD SCH (21:14)
[2019-09-03] MEDS: Morphine 4 MG/ML VIAL SLOW IVP PRN ×4 (00:20→19:38)
[2019-09-03] MEDS: Cefepime 2 GM in Sodium Chloride 0.9% 100 ML IVPB SCH (03:18)
[2019-09-03] MEDS: Sodium Chloride 0.9% 1,000 ML IV SCH (03:20)
[2019-09-03] MEDS: Metoclopramide 10 MG/10 ML UDCUP PER TUBE SCH ×4 (05:42→23:46)
[2019-09-03] MEDS: Promethazine 25 MG TAB PER TUBE SCH ×4 (05:42→23:46)
[2019-09-03] MEDS: HYDROcodone/Acetaminophen 5/325 mg Tablet PO PRN ×3 (05:42→23:46)
[2019-09-03 08:32] LABS: Hemoglobin 9.6 g/dL (14.0-18.0); Mean Corpuscular Hemoglobin 30.6 pg (27.0-31.0); Mean Corpuscular Volume 98.8 fL (78.0-98.0); Mean Platelet Volume 6.8 fL (7.4-10.4); Platelet Count 250 thou/uL (130-400); RBC Distribution Width 12.7 % (11.5-14.5); Red Blood Cell (RBC) Count 3.13 mill/uL (4.70-6.10); White Blood Cell (WBC) Count 3.7 thou/uL (4.8-10.8)
[2019-09-03 08:53] LABS: Iron 24 ug/dL (65-175); Iron Binding Capacity, Total 124 mcg/dL (261-462)
[2019-09-03 08:54] LABS: Anion Gap 8 mmol/L (10-20); BUN (Urea Nitrogen) 15 mg/dL (8.4-25.7); Calc. Creatinine Clearance 104 mL/min (70-130); Calcium 8.2 mg/dL (7.8-10.44); Carbon Dioxide 31 mmol/L (23-31); Chloride 104 mmol/L (98-107); Estimated GFR-MDRD Greater than 90; Glucose 128 mg/dL (80-115); Iron 24 ug/dL (65-175); Iron Binding Capacity, Total 123 mcg/dL (261-462); Potassium 4.6 mmol/L (3.5-5.1); Sodium 138 mmol/L (136-145)
[2019-09-03 09:18] LABS: Ferritin 754.74 ng/mL (22-322)
[2019-09-03 09:29] LABS: Band 2 % (5-11); Eosinophils 9 % (0-10); Hypochromia SLIGHT = 6-15 cells (100X) (0-5/hpf); Lymphocytes 18 % (21-51); MDiff Complete? YES; Monocytes 11 % (0-10); Neutrophil 58 % (42-75); Platelet Morphology Comment Appears Adequate; Polychromasia SLIGHT = 2-3 cells (100X) (0-2/hpf); Reactive Lymphocytes 2 % (0-10); Vacuoles SLIGHT
[2019-09-03] MEDS: Minocycline HCl 50 MG CAP PER TUBE SCH ×2 (12:27→20:08)
[2019-09-03] MEDS ORDERED: Furosemide 40 MG/4 ML VIAL IVP SCH (12:37)
[2019-09-03] MEDS ORDERED: Sodium Chloride 0.9% 1,000 ML IV SCH (12:39)
[2019-09-03] MEDS: methylPREDNISolone Sod Succ 40 MG VIAL IVP SCH ×2 (14:03→21:14)
--- NOTE | 2019-09-03 15:17 | PDOC.PALCO ---
Palliative Care Consult - Consult Details Requesting Physician: Vi Cronin Reason for Consult: goals of care, complex decision-making Family Members Present: Daughter Anali - Pertinent HPI Prior to diagnosis of cancer Mr Charles was living [place] the [place] in [place]. His daughter reports decline in functional status, only able to tolerate liquids, and primarily wheelchair bound with intermittent ambulation using a walker. After diagnosis in fall he spent 3 weeks in the hospital , requiring a trach and subsequent placement at an LTAC. He discharges and secondary to "set backs" his daughter moved him to seeking [facility], he lives with her in a private setting. She states that he has poor functional status in the home setting, primarily in his recliner with minimal ability to ambulate with a walker short distances. Nutrition via peg, trach in place. Uses a white board for communication. He has been receiving chemo and radiation therapy. Onset of cough that progressed with increase in secretions, chest x-ray suspicious of pneumonia 08/15 in which abx was started. Continued febrile episodes, increase in edema and increase in weakness with poor o2 saturation resulting in evaluation at the emergency room. He was found to have severe anemia, pleural effusion, and compression fracture involving L3. Admitted for further medical management. - Pertinent PMH COPD, HTN, Laryngeal cancer, - Social History Smoking Status: Former smoker Smoking: cigarettes Alcohol Use: daily Drug Use History: none Living Situation: with family/parents - Medications MAR Reviewed: Yes - Allergies Allergies/Adverse Reactions: Allergies Allergy/AdvReac Type Severity Reaction Status Date / Time Penicillins Allergy Verified 08/30/19 19:58 - Subjective Lethargic, arousable but returns to sleep state. Poor historian today in relation to ROS secondary to lethargy - ROS Non Response: due to mental status - Objective Vital Signs: Vital Signs - Most Recent Temp Pulse Resp BP Pulse Ox 98.7 F 81 18 117/66 96 09/03/19 08:00 09/03/19 14:51 09/03/19 14:51 09/03/19 08:00 09/03/19 14:51 Palliative Performance Scale: 30 - Physical Exam Constitutional: cachectic, ill appearing HEENT: moist MMs, poor dentition Respiratory: diminished lung sound Cardiovascular: RRR Gastrointestinal: soft, non-tender Deviation from normal: PEG Genitourinary: continent Musculoskeletal: edema present, diffuse muscle atrophy Neurology: moves all 4 limbs, no focal deficits Skin: cap refill <2 seconds Deviation from normal: Pallor Psychiatric: flat affect - Problem List (1) Pain Code(s): R52 - PAIN, UNSPECIFIED Current Visit: Yes Status: Acute (2) Palliative care encounter Code(s): Z51.5 - ENCOUNTER FOR PALLIATIVE CARE Current Visit: Yes Status: Acute (3) Symptomatic anemia Code(s): D64.9 - ANEMIA, UNSPECIFIED Current Visit: Yes Status: Acute (4) Head and neck cancer Code(s): C76.0 - MALIGNANT NEOPLASM OF HEAD, FACE AND NECK Current Visit: No Status: Chronic (5) PEG (percutaneous endoscopic gastrostomy) status Code(s): Z93.1 - GASTROSTOMY STATUS Current Visit: No Status: Chronic (6) Pleural effusion, left Code(s): J90 - PLEURAL EFFUSION, NOT ELSEWHERE CLASSIFIED Current Visit: No Status: Chronic (7) Tracheostomy in place Code(s): Z93.0 - TRACHEOSTOMY STATUS Current Visit: No Status: Chronic - Plan/Recommendations Plan: Lengthy conversation with daughter, patient intermittently listening, but would return to sleep state. Daughter feels that his quality of life is poor. She states that his baseline prior to diagnosis in 02/05 was limited mobility, poor intake. She states that he is not engaged in the home setting, primarily bedbound with assistance required for activities. She and patient understand that his cancer is not curable but treatable. She is concerned in her ability to continue to care for her father in the home setting. Suggest implementing antidepressant to help with depression but also address pain /Celexa Will communicate with Oncology in relation to family meeting and expected outcomes related to therapies and if quality of life is anticipated to improve. Coordinate with family and physicians a family meeting to discuss Goal of Care parallel to current disease processes. Conversation in relation to completion of Directive to Physician when patient is more alert. Emotional Support and Therapeutic Listening offered. Communicated with Dr Cronin, Dr Andino, Dr Rod [75] minutes spent on this encounter with >50% of the time in counseling and coordination of care. Thank you for this very appropriate consult.
--- NOTE | 2019-09-03 16:52 | PRG ---
DATE OF SERVICE: 09/03/2019 SUBJECTIVE: Carlos Manuel Charles is afebrile, heart rate is 82, respiratory rate is 20, oximetry is 96% on trach collar, blood pressure 136/77. He still has dyspnea. His echocardiogram shows moderate mitral regurgitation, which I believe is probably accounting for his pleural effusion. His pleural fluid pathology is still pending, but this was a transudative effusion. IMPRESSION: Large pleural effusion, likely related to moderate mitral regurgitation. The mitral valve disease may be worse than the echocardiogram would suggest. He will be given a diuretic today and probably should be started on a daily dose of diuretics. We will continue to follow. I do not feel no thoracentesis is indicated. Job ID: [id number] [facility]
--- NOTE | 2019-09-03 19:28 | PDOC.HOSPP ---
- Subjective Encounter Date: 09/03/19 Encounter Time: 10:00 Subjective: Pt seen for followup re: hypoxic resp failure (acute on chronic). SOBOE - Objective Vital Signs & Weight: Vital Signs (12 hours) Temp Pulse Resp BP Pulse Ox 09/03/19 16:00 98.9 F 76 20 144/77 H 98 09/03/19 14:51 81 18 96 09/03/19 12:00 98.7 F 82 20 136/77 100 09/03/19 08:00 98.7 F 67 20 117/66 98 Weight Admit Weight 163 lb Weight 163 lb 3.2 oz Most Recent Monitor Data Heart Rate from ECG 72 NIBP 120/70 NIBP BP-Mean 86 Respiration from ECG 23 SpO2 95 I&O: 09/02/19 09/03/19 09/04/19 06:59 06:59 06:59 Intake Total 1410 3702 30 Output Total 900 480 Balance 510 3222 30 Result Diagrams: 09/03/19 08:14 09/03/19 08:14 Additional Labs: Labs and MARs reviewed by pr Hospitalist ROS - Review of Systems Respiratory: reports: SOB with excertion Cardiovascular: denies: chest pain, palpitations, orthopnea, paroxysmal noc. dyspnea, edema, light headedness Gastrointestinal: denies: nausea, vomiting, abdominal pain, diarrhea, constipation, melena, hematochezia - Medication Medications: Active Medications Generic Name Dose Route Start Last Admin Trade Name Freq PRN Reason Stop Dose Admin Hydrocodone Bitart/Acetaminophen 2 tab 08/31/19 17:40 09/03/19 17:25 [place] 5/325 PO 2 tab Q4H PRN Administration Moderate Pain (4-6) Albuterol/Ipratropium 3 ml 09/03/19 14:30 09/03/19 14:51 Duoneb NEB 3 ml [id number] MATHEW Administration Fentanyl 50 mcg 09/02/19 18:00 09/02/19 17:19 Duragesic TD 50 mcg Q3D MATHEW Administration Methylprednisolone Sodium Succinate 40 mg 09/03/19 14:00 09/03/19 14:03 Solu-Medrol IVP 40 mg Q8HR MATHEW Administration Metoclopramide HCl 10 mg 08/31/19 18:00 09/03/19 17:25 Reglan PER TUBE 10 mg Q6HR MATHEW Administration Minocycline HCl 100 mg 08/31/19 21:00 09/03/19 12:27 Minocycline Hcl PER TUBE 100 mg BID MATHEW Administration Morphine Sulfate 4 mg 08/31/19 16:41 09/03/19 16:12 Morphine SLOW IVP 4 mg Q2H PRN Administration Severe Pain (7-10) Promethazine HCl 25 mg 09/02/19 18:00 09/03/19 17:25 Phenergan PER TUBE 25 mg Q6HR MATHEW Administration Scopolamine 1.5 mg 09/02/19 21:00 09/02/19 21:14 Transderm Scop TD 1.5 mg Q3D MATHEW Administration Sodium Chloride 10 ml 08/30/19 21:00 09/03/19 12:27 Flush - Normal Saline IVF 10 ml Q12HR MATHEW Administration - Exam General Appearance: awake alert Eye: anicteric sclera ENT: moist mucosa Neck: supple Heart: RRR Respiratory - other findings: L base decreased air entry Gastrointestinal: soft, non-tender Psychiatric: normal affect, normal behavior Hosp A/P (1) Acute and chronic respiratory failure with hypoxia Code(s): J96.21 - ACUTE AND CHRONIC RESPIRATORY FAILURE WITH HYPOXIA Status: Acute (2) Symptomatic anemia Code(s): D64.9 - ANEMIA, UNSPECIFIED Status: Acute (3) Head and neck cancer Code(s): C76.0 - MALIGNANT NEOPLASM OF HEAD, FACE AND NECK Status: Chronic (4) Pleural effusion, left Code(s): J90 - PLEURAL EFFUSION, NOT ELSEWHERE CLASSIFIED Status: Chronic (5) Tracheostomy in place Code(s): Z93.0 - TRACHEOSTOMY STATUS Status: Chronic - Plan cefepime discontinued Anemia of chronic disease, but pt also has iron deficiency; IV iron x 1 followed by iron via G-tube s/p thoracentesis COVID 19 PCR test negative. Hb stable, 9.6 today Appreciate palliative care input.
[2019-09-03] MEDS ORDERED: Iron, Sodium Ferric Gluconate 250 MG in Sodium Chloride 0.9% 100 ML IVPB SCH (19:45)
[2019-09-04] MEDS: Morphine 4 MG/ML VIAL SLOW IVP PRN ×5 (01:59→21:22)
[2019-09-04] MEDS: methylPREDNISolone Sod Succ 40 MG VIAL IVP SCH ×3 (05:40→21:23)
[2019-09-04] MEDS: HYDROcodone/Acetaminophen 5/325 mg Tablet PO PRN ×5 (05:40→23:37)
[2019-09-04] MEDS: Promethazine 25 MG TAB PER TUBE SCH ×4 (05:40→23:38)
[2019-09-04] MEDS: Metoclopramide 10 MG/10 ML UDCUP PER TUBE SCH ×4 (05:40→23:37)
[2019-09-04] MEDS: Furosemide 40 MG/4 ML VIAL SLOW IVP SCH ×2 (05:40→15:43)
[2019-09-04 06:33] LABS: #Lymphocytes 0.3 thou/uL (1.20-3.40); #Monocytes 0.2 thou/uL (0.11-0.59); %Eosinophils 0.3 % (0.0-10.0); %Lymphocytes 7.6 % (21.0-51.0); %Monocytes 5.5 % (0.0-10.0); %Neutrophils 86.6 % (42.0-75.0); Hemoglobin 9.9 g/dL (14.0-18.0); Mean Corpuscular HGB CONC 31.3 g/dL (32.0-36.0); Mean Corpuscular Hemoglobin 30.7 pg (27.0-31.0); Mean Platelet Volume 7.2 fL (7.4-10.4); Platelet Count 286 thou/uL (130-400); RBC Distribution Width 12.8 % (11.5-14.5); Red Blood Cell (RBC) Count 3.22 mill/uL (4.70-6.10); White Blood Cell (WBC) Count 3.4 thou/uL (4.8-10.8)
[2019-09-04 06:55] LABS: Anion Gap 14 mmol/L (10-20); BUN (Urea Nitrogen) 19 mg/dL (8.4-25.7); Calc. Creatinine Clearance 99 mL/min (70-130); Calcium 8.4 mg/dL (7.8-10.44); Carbon Dioxide 26 mmol/L (23-31); Chloride 103 mmol/L (98-107); Estimated GFR-MDRD Greater than 90; Glucose 218 mg/dL (80-115); Potassium 4.8 mmol/L (3.5-5.1); Sodium 138 mmol/L (136-145)
[2019-09-04] MEDS: Minocycline HCl 50 MG CAP PER TUBE SCH ×2 (08:35→21:21)
--- NOTE | 2019-09-04 10:57 | PDOC.PALPN ---
Palliative Progress Note - Objective Vital Signs: Vital Signs - Most Recent Temp Pulse Resp BP Pulse Ox 96.9 F L 78 18 126/74 98 09/04/19 07:21 09/04/19 10:36 09/04/19 10:36 09/04/19 07:21 09/04/19 10:36 - Assessment (1) Pain Code(s): R52 - PAIN, UNSPECIFIED Current Visit: Yes Status: Acute (2) Palliative care encounter Code(s): Z51.5 - ENCOUNTER FOR PALLIATIVE CARE Current Visit: Yes Status: Acute (3) Symptomatic anemia Code(s): D64.9 - ANEMIA, UNSPECIFIED Current Visit: Yes Status: Acute (4) Head and neck cancer Code(s): C76.0 - MALIGNANT NEOPLASM OF HEAD, FACE AND NECK Current Visit: No Status: Chronic (5) PEG (percutaneous endoscopic gastrostomy) status Code(s): Z93.1 - GASTROSTOMY STATUS Current Visit: No Status: Chronic (6) Pleural effusion, left Code(s): J90 - PLEURAL EFFUSION, NOT ELSEWHERE CLASSIFIED Current Visit: No Status: Chronic (7) Tracheostomy in place Code(s): Z93.0 - TRACHEOSTOMY STATUS Current Visit: No Status: Chronic - Plan Plan: Discussed multiple options of Continuing with aggressive treatment, finishing chemo and radiation then transition to hospice, or transition to hospice. Patient states he is ready to go home, daughter at bedside. Dr Linares feels cardiac intervention is limited secondary to disease processes. Communicated with Dr Cronin, Dr Andino, and Dr Berhane Owens notified of family request, order place. Will readdress resuscitation status after spiritual care visits with Mr Charles. [75] minutes spent on this encounter with >50% of the time in counseling and coordination of care.
--- NOTE | 2019-09-04 11:20 | PDOC.FMACP ---
Advance Care Planning - Problem (1) Pain Status: Acute Code(s): R52 - PAIN, UNSPECIFIED (2) Palliative care encounter Status: Acute Code(s): Z51.5 - ENCOUNTER FOR PALLIATIVE CARE (3) Symptomatic anemia Status: Acute Code(s): D64.9 - ANEMIA, UNSPECIFIED (4) Head and neck cancer Status: Chronic Code(s): C76.0 - MALIGNANT NEOPLASM OF HEAD, FACE AND NECK (5) PEG (percutaneous endoscopic gastrostomy) status Status: Chronic Code(s): Z93.1 - GASTROSTOMY STATUS (6) Pleural effusion, left Status: Chronic Code(s): J90 - PLEURAL EFFUSION, NOT ELSEWHERE CLASSIFIED (7) Tracheostomy in place Status: Chronic Code(s): Z93.0 - TRACHEOSTOMY STATUS - Note Summary: Advanced Care Planning was discussed. The diagnosis, prognosis and goals of care were discussed. Appropriate forms and documentation to accomplish the goals of care were discussed. All questions were answered. The Palliative Care Team will be engaged to assist with completion of any outstanding forms that are needed.
--- NOTE | 2019-09-04 14:40 | PQF ---
CLINICAL DOCUMENTATION IMPROVEMENT CLARIFICATION FORM: ICD-10 Updated PLEASE DO AN ADDENDUM TO THE PROGRESS NOTE WITH ANY DOCUMENTATION UPDATES OR ADDITIONS AND CARRY THROUGH TO DC SUMMARY. THANK YOU. DATE: 09/04/19 ATTN: DR. LANDERS Please exercise your independent, professional judgment in responding to the clarification form. Clinical indicators are provided on the bottom of this form for your review Please check appropriate box(s) to clarify if the following diagnosis has been ruled in or ruled out: PNEUMONIA [ ] Ruled in diagnosis [ ] Continue to treat [ ] Resolved [ ] Ruled out diagnosis [ ] Improving [ ] Cannot rule out diagnosis [ ] Other diagnosis [ ] Unable to determine In addition, please specify: Present on Admission (POA): [ ] Yes [ ] No [ ] Unable to determine For continuity of documentation, please document condition throughout progress notes and discharge summary. Thank You. CLINICAL INDICATORS - SIGNS / SYMPTOMS / LABS / RESULTS AND LOCATION IN MR ER NOTE: "PNEUMONIA" H&P: "PNEUMONIA" PN 08/30 (WILI): "SUBACUTE PLEURAL EFFUSION, THIS IS LIKELY MALIGNANT VERSUS PARAPNEUMONIC." RISKS: NECK/THROAT CA (H&P) TREATMENT: IV VANCOMYCIN (ER) IV LEVAQUIN (ER) IV CEFEPIME (ER-09/02) PULMONARY CONSULT SUPPLEMENTAL OXYGEN SAP Building Cleaner Crystal Reports Winform Viewer (This form is maintained as a part of the permanent medical record) 2014 [email or web address]. All Rights Reserved PATRIC [email or web address] [employer] [facility]
--- NOTE | 2019-09-04 17:25 | CON ---
DATE OF CONSULTATION: HISTORY OF PRESENT ILLNESS: The patient is an unfortunate 69-year-old gentleman, who presents for evaluation of recurrent dyspnea. The patient has a history of head and neck carcinoma. The patient has a history of a gastrostomy tube placement. The patient was admitted and has undergone an evaluation for recurrent dyspnea. The patient denies having any chest discomfort. PAST MEDICAL HISTORY: Significant for: 1. Head and neck carcinoma. 2. Hypertension. 3. COPD. PAST SURGICAL HISTORY: He has had tracheostomy, MediPort placement, G-tube placement, herniorrhaphy. SOCIAL HISTORY: Former smoker. ALLERGIES: HE IS ALLERGIC TO AMOXICILLIN. MEDICATIONS ON ADMISSION: See nursing list. PHYSICAL EXAMINATION: GENERAL: Ill-appearing gentleman with a blood pressure of 126/74 with a tracheostomy tube. NECK: Showed no jugular venous distention. LUNGS: Diminished breath sounds bilateral. HEART: Regular rate and rhythm with normal S1, S2. No murmurs. ABDOMEN: Nondistended. EXTREMITIES: Showed no edema. LABORATORY DATA: Sodium 138, potassium 4.8, chloride 103, bicarbonate 26, BUN 19, creatinine 0.75, and glucose 218. White blood cell count 3.4, hemoglobin 9.9, hematocrit 31.6, and platelets 286. IMPRESSION: 1. Congestive heart failure, probably secondary to diastolic dysfunction. 2. Recurrent pleural effusions. 3. Moderate mitral regurgitation. 4. Thyroid carcinoma. 5. Hypertension. This gentleman presents with congestive heart failure and transudative effusion. I expect the patient has diastolic heart failure. We will review the patient's echocardiogram. The patient does not have severe MR and I do not appreciate a significant murmur. We will follow this patient with you through his hospitalization. Agree with using IV Lasix and the patient being discharged on p.o. diuretics. Please call my office. Job ID: [id number]
--- NOTE | 2019-09-04 18:00 | PDOC.HOSPP ---
- Subjective Encounter Date: 09/04/19 Encounter Time: 09:00 Subjective: Pt seen for followup re: hypoxic respiratory failure. Denies chest pain. - Objective Vital Signs & Weight: Vital Signs (12 hours) Temp Pulse Resp BP Pulse Ox 09/04/19 14:35 80 20 09/04/19 10:36 78 18 98 09/04/19 08:00 98 09/04/19 07:21 96.9 F L 78 16 126/74 98 09/04/19 07:17 97 09/04/19 07:14 85 20 97 Weight Admit Weight 163 lb Weight 163 lb 3.2 oz Most Recent Monitor Data Heart Rate from ECG 72 NIBP 120/70 NIBP BP-Mean 86 Respiration from ECG 23 SpO2 95 I&O: 09/03/19 09/04/19 09/05/19 06:59 06:59 06:59 Intake Total 3702 30 30 Output Total 480 Balance 3222 30 30 Result Diagrams: 09/04/19 06:21 09/04/19 06:21 Additional Labs: Labs and MARs reviewed by hi Hospitalist ROS - Review of Systems Respiratory: reports: cough, dry, SOB with excertion. denies: shortness of breath, hemoptysis, pleuritic pain, sputum, wheezing Cardiovascular: denies: chest pain, palpitations, orthopnea, paroxysmal noc. dyspnea, edema, light headedness Skin: reports: other. denies: rash, lesions, ade - Medication Medications: Active Medications Generic Name Dose Route Start Last Admin Trade Name Freq PRN Reason Stop Dose Admin Hydrocodone Bitart/Acetaminophen 2 tab 08/31/19 17:40 09/04/19 14:40 [place] 5/325 PO 2 tab Q4H PRN Administration Moderate Pain (4-6) Albuterol/Ipratropium 3 ml 09/03/19 14:30 09/04/19 14:35 Duoneb NEB 3 ml [id number] MATHEW Administration Fentanyl 50 mcg 09/02/19 18:00 09/02/19 17:19 Duragesic TD 50 mcg Q3D MATHEW Administration Ferrous Sulfate 300 mg 09/04/19 09:00 09/04/19 08:35 Ferrous Sulfate PER TUBE 300 mg DAILY MATHEW Administration Furosemide 40 mg 09/04/19 06:00 09/04/19 15:43 Lasix SLOW IVP Not Given 0600,1400 MATHEW Methylprednisolone Sodium Succinate 40 mg 09/03/19 14:00 09/04/19 14:42 Solu-Medrol IVP 40 mg Q8HR MATHEW Administration Metoclopramide HCl 10 mg 08/31/19 18:00 09/04/19 12:35 Reglan PER TUBE 10 mg Q6HR MATHEW Administration Minocycline HCl 100 mg 08/31/19 21:00 09/04/19 08:35 Minocycline Hcl PER TUBE 100 mg BID MATHEW Administration Morphine Sulfate 4 mg 08/31/19 16:41 09/04/19 17:09 Morphine SLOW IVP 4 mg Q2H PRN Administration Severe Pain (7-10) Promethazine HCl 25 mg 09/02/19 18:00 09/04/19 12:33 Phenergan PER TUBE 25 mg Q6HR MATHEW Administration Scopolamine 1.5 mg 09/02/19 21:00 09/02/19 21:14 Transderm Scop TD 1.5 mg Q3D MATHEW Administration Sodium Chloride 10 ml 08/30/19 21:00 09/04/19 08:36 Flush - Normal Saline IVF Not Given Q12HR MATHEW - Exam General Appearance: awake alert Eye: anicteric sclera ENT: moist mucosa Neck: supple Neck - other findings: tracheostomy Heart: RRR Respiratory: CTAB Gastrointestinal: soft, non-tender Skin: normal turgor Psychiatric: normal affect, normal behavior Hosp A/P (1) Acute and chronic respiratory failure with hypoxia Code(s): J96.21 - ACUTE AND CHRONIC RESPIRATORY FAILURE WITH HYPOXIA Status: Acute (2) Symptomatic anemia Code(s): D64.9 - ANEMIA, UNSPECIFIED Status: Acute (3) Head and neck cancer Code(s): C76.0 - MALIGNANT NEOPLASM OF HEAD, FACE AND NECK Status: Chronic (4) Pleural effusion, left Code(s): J90 - PLEURAL EFFUSION, NOT ELSEWHERE CLASSIFIED Status: Chronic (5) Tracheostomy in place Code(s): Z93.0 - TRACHEOSTOMY STATUS Status: Chronic - Plan Started on iron s/p thoracentesis COVID 19 PCR test negative. Hb stable, 9.9 today Pt considering hospice care.
[2019-09-05] MEDS: Morphine 4 MG/ML VIAL SLOW IVP PRN ×5 (02:17→19:56)
[2019-09-05] MEDS: HYDROcodone/Acetaminophen 5/325 mg Tablet PO PRN ×4 (05:04→23:15)
[2019-09-05] MEDS: Metoclopramide 10 MG/10 ML UDCUP PER TUBE SCH ×4 (05:04→23:13)
[2019-09-05] MEDS: Promethazine 25 MG TAB PER TUBE SCH ×4 (05:04→23:13)
[2019-09-05] MEDS: methylPREDNISolone Sod Succ 40 MG VIAL IVP SCH (05:39)
[2019-09-05] MEDS: Furosemide 40 MG/4 ML VIAL SLOW IVP SCH ×2 (06:07→14:26)
[2019-09-05] MEDS ORDERED: Pantoprazole 40 MG GRANULES PACKET PER TUBE SCH (11:00)
[2019-09-05 12:04] LABS: Hemoglobin 11.1 g/dL (14.0-18.0)
[2019-09-05] MEDS: Minocycline HCl 50 MG CAP PER TUBE SCH ×2 (12:07→19:55)
--- NOTE | 2019-09-05 13:57 | PQF ---
CLINICAL DOCUMENTATION IMPROVEMENT CLARIFICATION FORM: ICD-10 Updated PLEASE DO AN ADDENDUM TO THE PROGRESS NOTE WITH ANY DOCUMENTATION UPDATES OR ADDITIONS AND CARRY THROUGH TO DC SUMMARY. THANK YOU. DATE: 09/05/19 ATTN: DR. LANDERS Please exercise your independent, professional judgment in responding to the clarification form. Clinical indicators are provided on the bottom of this form for your review Please check appropriate box(s): HEART FAILURE: ACUITY [ ] Acute [ ] Acute on Chronic [ ] Chronic [ ] Other diagnosis [ ] Unable to determine In addition, please specify: Present on Admission (POA): [ ] Yes [ ] No [ ] Unable to determine For continuity of documentation, please document condition throughout progress notes and discharge summary. Thank You. CLINICAL INDICATORS - SIGNS / SYMPTOMS / LABS / RESULTS AND LOCATION IN EMR CARDIOLOGY NOTE 09/03: "CONGESTIVE HEART FAILURE, PROBABLY SECONDARY TO DIASTOLIC DYSFUNCTION" RISKS: HTN (CARDIOLOGY NOTE 09/03) DIASTOLIC HEART FAILURE (CARDIOLOGY NOTE 09/03) TREATMENT: IV LASIX STARTED 09/03 ECHOCARDIOGRAM 09/01 (This form is maintained as a part of the permanent medical record) SAP Safety Instructor Crystal Reports Winform Viewer 2015 [employer]. All Rights Reserved PATRIC [email or web address] Cell [facility]
--- NOTE | 2019-09-05 17:58 | PDOC.HOSPP ---
- Subjective Encounter Date: 09/05/19 Encounter Time: 17:56 Subjective: Pt seen for followup re: acute on chronic diastolic congestive heart failure. Had coffee ground residuals today. - Objective Vital Signs & Weight: Vital Signs (12 hours) Temp Pulse Resp BP Pulse Ox 09/05/19 16:13 99.0 F 79 20 126/76 98 09/05/19 15:41 95 09/05/19 15:40 78 20 95 09/05/19 11:30 96 09/05/19 07:41 95 09/05/19 07:37 74 18 95 09/05/19 07:30 95 09/05/19 07:12 99.4 F 75 18 133/74 94 L Weight Admit Weight 163 lb Weight 163 lb 3.2 oz Most Recent Monitor Data Heart Rate from ECG 72 NIBP 120/70 NIBP BP-Mean 86 Respiration from ECG 23 SpO2 95 I&O: 09/04/19 09/05/19 09/06/19 06:59 06:59 06:59 Intake Total 30 1430 Output Total 1150 Balance 30 280 Result Diagrams: 09/05/19 11:51 09/04/19 06:21 Additional Labs: Labs and MARs reviewed by nv Hospitalist ROS - Review of Systems Cardiovascular: denies: chest pain, palpitations, orthopnea, paroxysmal noc. dyspnea, edema, light headedness Gastrointestinal: reports: other (coffee ground residuals) Genitourinary: denies: dysuria, frequency, incontinence, hematuria, retention - Medication Medications: Active Medications Generic Name Dose Route Start Last Admin Trade Name Freq PRN Reason Stop Dose Admin Hydrocodone Bitart/Acetaminophen 2 tab 08/31/19 17:40 09/05/19 12:06 [place] 5/325 PO 2 tab Q4H PRN Administration Moderate Pain (4-6) Albuterol/Ipratropium 3 ml 09/03/19 14:30 09/05/19 15:40 Duoneb NEB 3 ml [id number] MATHEW Administration Fentanyl 50 mcg 09/02/19 18:00 09/02/19 17:19 Duragesic TD 50 mcg Q3D MATHEW Administration Ferrous Sulfate 300 mg 09/04/19 09:00 09/05/19 12:08 Ferrous Sulfate PER TUBE Not Given DAILY MATHEW Furosemide 40 mg 09/04/19 06:00 09/05/19 14:26 Lasix SLOW IVP Not Given 0600,1400 MATHEW Metoclopramide HCl 10 mg 08/31/19 18:00 09/05/19 12:08 Reglan PER TUBE 10 mg Q6HR MATHEW Administration Minocycline HCl 100 mg 08/31/19 21:00 09/05/19 12:07 Minocycline Hcl PER TUBE 100 mg BID MATHEW Administration Morphine Sulfate 4 mg 08/31/19 16:41 09/05/19 14:22 Morphine SLOW IVP 4 mg Q2H PRN Administration Severe Pain (7-10) Ondansetron HCl 4 mg 08/31/19 17:42 09/05/19 09:32 Zofran IVP 4 mg Q6H PRN Administration Nausea/Vomiting Promethazine HCl 25 mg 09/02/19 18:00 09/05/19 12:06 Phenergan PER TUBE 25 mg Q6HR MATHEW Administration Scopolamine 1.5 mg 09/02/19 21:00 09/02/19 21:14 Transderm Scop TD 1.5 mg Q3D MATHEW Administration Sodium Chloride 10 ml 08/30/19 21:00 09/05/19 09:20 Flush - Normal Saline IVF Not Given Q12HR MATHEW - Exam General Appearance: awake alert Eye: anicteric sclera ENT: moist mucosa ENT - other findings: tracheostomyh Neck: supple Heart: RRR Respiratory: CTAB Gastrointestinal: soft, non-tender Psychiatric: normal affect, normal behavior Hosp A/P (1) Acute on chronic diastolic congestive heart failure, NYHA class 3 Code(s): I50.33 - ACUTE ON CHRONIC DIASTOLIC (CONGESTIVE) HEART FAILURE Status : Acute Plan: Present on admission (2) Acute and chronic respiratory failure with hypoxia Code(s): J96.21 - ACUTE AND CHRONIC RESPIRATORY FAILURE WITH HYPOXIA Status: Acute (3) Head and neck cancer Code(s): C76.0 - MALIGNANT NEOPLASM OF HEAD, FACE AND NECK Status: Chronic (4) Pleural effusion, left Code(s): J90 - PLEURAL EFFUSION, NOT ELSEWHERE CLASSIFIED Status: Chronic (5) Tracheostomy in place Code(s): Z93.0 - TRACHEOSTOMY STATUS Status: Chronic (6) Symptomatic anemia Code(s): D64.9 - ANEMIA, UNSPECIFIED Status: Resolved - Plan Continue furosemide. No evidence of pneumonia continue iron s/p thoracentesis COVID 19 PCR test negative. Hb stable, change to oral steroids start PPI Pt considering hospice care.
[2019-09-05] MEDS: fentaNYL 50 mcg/hour Patch TD SCH (18:46)
[2019-09-05] MEDS: Scopolamine 1.5 mg/72 hour Patch TD SCH (19:53)
--- NOTE | 2019-09-06 00:26 | PRG ---
DATE OF SERVICE: 09/05/2019 REASON FOR CONSULTATION: Possible hematemesis/coffee-ground emesis. SUBJECTIVE: Per nursing staff, the patient earlier today had an acute episode of nausea and vomiting with the vomiting of darker colored material that appeared to be coffee-grounds emesis per nursing staff. The patient has not had any additional episodes of this throughout the day today and states that he does not have any additional episodes of nausea or vomiting at this time. However, he continues to have increased generalized abdominal pain that only seems to be marginally controlled with the administration of narcotics. Currently, he denies any nausea, vomiting, fevers, chills, hematochezia, or melena. Of note, the patient currently has a tracheostomy and gastrostomy tube with the majority of his feeds and medications being administered through the gastrostomy tube that was recently adjusted (not replaced). OBJECTIVE: VITAL SIGNS: Temperature 99.2, pulse 86, blood pressure 136/75, respiratory rate 20, and saturating 95% on trach collar with FiO2 of 40%. GENERAL: The patient was lying in bed, in no acute distress. Alert and oriented x3 with significant difficulty to communicate due to his tracheostomy tube, but was able to write on a dry erase board. CARDIOVASCULAR: Regular rate and rhythm. RESPIRATORY: Coarse breath sounds auscultated in all lung preciado consistent with trach collar. EXTREMITIES: No cyanosis, clubbing, or edema. LABORATORY DATA: Hemoglobin of 11.1 and hematocrit 36.6 (up trending). IMAGING DATA: No current GI imaging is available for review. ASSESSMENT AND PLAN: The patient is a 69-year-old male with past medical history of COPD, hypertension, and squamous cell carcinoma of the larynx, initially presenting with fever, hypoxia, and a left pleural effusion. This seems to be related to pneumonia and complications from his head/neck cancer, now with vomiting darker colored material concerning for hematemesis. Hematemesis: The patient is presenting with a prior history of history of squamous cell carcinoma of the larynx, for which the patient has undergone both gastrostomy and tracheostomy placement. At the beginning of this admission, he was evaluated by the GI Service for increasing secretions from around the gastrostomy tube, but with tightening the bumper somewhat, it decreased the secretions significantly with no further secretions per nursing staff. However, earlier today with his tube feeds at goal at 60 mL/hour, he had an acute episode of nausea and vomiting with the vomitus of dark in color material that had the appearance of coffee-ground emesis and concerning for an upper GI bleed. However, he is currently receiving iron supplementation through the gastrostomy tube, which could potentially manifest as vomiting darker color material if expelled. At this time, his H and H seems to be up trending when compared to his most recent labs, again making the diagnosis of active GI bleeding less likely. Based on his current clinical situation and higher likelihood of being placed on comfort care measures, I would recommend primarily just monitoring his H and H and if it falls, then considering upper endoscopy for further evaluation, if it is in line with the patient's wishes. Recommendations; 1. Would continue to trend his H and H and transfuse as necessary to maintain an H and H of 10/07. 2. Continue to monitor clinically for signs of active gastrointestinal bleeding. 3. Would have the patient maintain an upright posture, especially after meals in light of probable acid reflux, which could create erosive changes in the esophagus and generate hematemesis/coffee-ground emesis. 4. Would hold iron supplementation for the time being given its propensity to generate darker colored vomitus. 5. Would avoid any anticoagulation for the time being. 6. Would hold the patient's tube feeds until tomorrow morning after recheck of his H and H and if uptrending would only continue to monitor with restarting his tube feeds at half goal. 7. We will continue the patient on PPI 40 mg daily, especially if the patient is receiving prednisone on a daily basis. We will continue to follow. Please call with any questions. Job ID: [id number]
[2019-09-06] MEDS: Metoclopramide 10 MG/10 ML UDCUP PER TUBE SCH ×2 (06:23→12:10)
[2019-09-06] MEDS: Promethazine 25 MG TAB PER TUBE SCH ×2 (06:23→12:11)
[2019-09-06 06:24] LABS: Band 6 % (5-11); Hemoglobin 9.2 g/dL (14.0-18.0); Lymphocytes 8 % (21-51); MDiff Complete? YES; Mean Corpuscular HGB CONC 31.6 g/dL (32.0-36.0); Mean Corpuscular Hemoglobin 30.2 pg (27.0-31.0); Mean Corpuscular Volume 95.4 fL (78.0-98.0); Mean Platelet Volume 6.9 fL (7.4-10.4); Monocytes 20 % (0-10); Neutrophil 66 % (42-75); Platelet Count 288 thou/uL (130-400); Platelet Morphology Comment Appears Adequate; Red Blood Cell (RBC) Count 3.05 mill/uL (4.70-6.10); White Blood Cell (WBC) Count 6.2 thou/uL (4.8-10.8)
[2019-09-06] MEDS: Furosemide 40 MG/4 ML VIAL SLOW IVP SCH ×2 (06:24→16:36)
[2019-09-06] MEDS ORDERED: predniSONE 20 MG TAB PER TUBE SCH (08:00)
[2019-09-06] MEDS ORDERED: Pantoprazole 40 MG GRANULES PACKET PER TUBE SCH (09:00)
[2019-09-06] MEDS: Minocycline HCl 50 MG CAP PER TUBE SCH (09:28)
[2019-09-06] MEDS: HYDROcodone/Acetaminophen 5/325 mg Tablet PO PRN ×2 (12:11→15:59)
[2019-09-06 15:56] VITALS: BP 148/78; TEMP 98.2
--- NOTE | 2019-09-07 02:01 | DIS ---
DATE OF ADMISSION: 08/30/2019 DATE OF DISCHARGE: 09/06/2019 PRIMARY CARE PROVIDER: Unknown. DISCHARGE DIAGNOSES: 1. Acute on chronic diastolic congestive heart failure, [place] Heart Association class III. 2. Symptomatic anemia. 3. Acute on chronic respiratory failure with hypoxia. 4. Dislodged PEG tube. 5. Coronavirus disease-19 ruled out. 6. Iron deficiency. CONDITION OF PATIENT ON THE DAY OF DISCHARGE: Stable. I assessed Mr. Valladares on the day of discharge. He denies chest pain or shortness of breath. Vital signs are stable. S1 and S2 are heard, regular. Lungs are clear to auscultation bilaterally. CONSULTATIONS DURING THIS HOSPITALIZATION: Pulmonary and Critical Care Medicine, Dr. Bogdan Rowe; Oncology, Ms. Jacquelyn Cordero; Gastroenterology, Dr. Andrew Marlow; Cardiology Dr. Mcclellan. HOSPITAL COURSE: Mr. Valladares is a pleasant 69-year-old gentleman, who was admitted to [facility] on August 31, 2019 for shortness of breath. He had a large left pleural effusion. He was seen by Pulmonary and Critical Care Medicine Service. He was ruled out for COVID-19 and underwent thoracentesis. The fluid was transudative. He does have a history of head and neck cancer. 2D echocardiogram showed moderate mitral regurgitation. He was seen by Cardiology Service as well. He was started on furosemide for diastolic heart failure exacerbation. The patient was also seen by Palliative Care Service team. After discussion with Palliative Care team, the patient wished to go home with hospice care at home. He is being discharged to home for hospice care at home. Towards the end of this hospitalization, he was started on ferrous sulfate. Residuals in the PEG tube feeds were coffee-ground. However, his hemoglobin was stable and it was felt that the coffee-ground residuals were secondary to ferrous sulfate use. DISCHARGE MEDICATIONS: Fentanyl 50 mcg patch every 3 days, promethazine 25 mg per tube every 6 hours, [place] p.o. q.4 hours, ferrous sulfate 300 mg per tube daily, furosemide 40 mg per tube daily, Reglan 10 mg per tube before meals and at bedtime, Protonix 40 mg per tube daily, prednisone taper, scopolamine 1.5 mg patch every 3 days, Ativan 0.5 mg at bedtime as needed and guaifenesin p.r.n. POST-ACUTE CARE FOLLOWUP: With the primary care provider in 3 days. DIET: Low-sodium and heart healthy. ACTIVITY: Activity as tolerated. DISCHARGE DESTINATION: Home. TIME SPENT: Total amount of time spent coordinating this discharge: 33 minutes. Job ID: [id number]
== END 2019-09-06 17:15 | disposition hospice, home (50) | DRG 291 ==
LOC: ERS 11:39 → IMCU/EMU 15:59 → ERS 18:10 → T4-B 08-31 15:59
PROVIDERS: ADMIT Internal Medicine; ATTEND Internal Medicine
PROC: 8E0ZXY6 Isolation (ICD-10-PCS; 2019-08-30)
PROC: 0W9B3ZZ Drainage of Left Pleural Cavity, Percutaneous Approach (ICD-10-PCS; principal; 2019-08-31)
DX: I11.0 Hypertensive heart disease with heart failure (principal); J96.21 Acute and chronic respiratory failure with hypoxia; K94.23 Gastrostomy malfunction; C15.9 Malignant neoplasm of esophagus, unspecified; E87.1 Hypo-osmolality and hyponatremia; J90 Pleural effusion, not elsewhere classified; K92.0 Hematemesis; Z20.828 Contact with and (suspected) exposure to other viral communicable diseases; Z66 Do not resuscitate; Z51.5 Encounter for palliative care; I50.33 Acute on chronic diastolic (congestive) heart failure; C32.9 Malignant neoplasm of larynx, unspecified; D50.9 Iron deficiency anemia, unspecified; I34.0 Nonrheumatic mitral (valve) insufficiency; C73 Malignant neoplasm of thyroid gland; R13.10 Dysphagia, unspecified; Y83.8 Other surgical procedures as the cause of abnormal reaction of the patient, or of later complication, without mention of misadventure at the time of the procedure; J44.9 Chronic obstructive pulmonary disease, unspecified; Z90.49 Acquired absence of other specified parts of digestive tract; Z87.891 Personal history of nicotine dependence; Z88.0 Allergy status to penicillin; Z87.01 Personal history of pneumonia (recurrent)
CPT/HCPCS: 36415; 36430; 51701; 71045; 71260; 77336; 80048; 80053; 81003; 82150; 82607; 82728; 82746; 82945; 83540; 83550; 83605; 83615; 83880; 84157; 84484; 85014; 85018; 85025; 86850; 86900; 86901; 87040; 87070; 87086; 87205; 87635; 88112; 88305; 93306; 94640; 96365; 96366; 96375; J0692; J1642; J1940; J1956; J2060; J2270; J2405; J2916; J2920; J3370; J3490; J7030; J7512; J7620; P9016; Q0169; Q9967; U0003